=== PATIENT | male | born 1935 | race Two or more races ===

== ENCOUNTER 2022-07-15 10:53 | Emergency (ER) | payer OTHER ==
[~2022-07-15] VITALS: Ht 175.3 cm; Wt 77.0 kg
[2022-07-15] MEDS ORDERED: ASPirin 81 mg TAB PO ONE (11:30)
[2022-07-15 11:46] LABS: Basophils # (auto) 0 10 ^3/uL (0-0.2); Basophils % (auto) 0.8 % (0.0-2.0); Eosinophils # (auto) 0.2 10 ^3/uL (0-0.8); Eosinophils % (auto) 3.9 % (0.0-7.0); Hemoglobin 13.8 g/dL (13.5-17.5); Lymphocytes # (auto) 0.8 10 ^3/uL (0.4-5.4); Lymphocytes % (auto) 15.1 % (10.0-50.0); Mean Corpuscular Hgb Conc. 32.2 g/dL (32.0-36.0); Mean Corpuscular Volume 99.6 fL (80.0-100.0); Monocytes # (auto) 0.4 10 ^3/uL (0-1.3); Monocytes % (auto) 7.4 % (0.0-12.0); Neutrophils # (auto) 4.1 10 ^3/uL (1.6-8.6); Neutrophils % (auto) 72.8 % (37.0-80.0); Red Blood Cells 4.32 10^6/uL (4.5-5.90); White Blood Cell 5.6 10^3/uL (4.4-10.8)
[2022-07-15 11:57] LABS: Albumin 3.8 g/dL (3.4-5.0); BUN/Creatinine Ratio 16.6; Calcium 8.3 mg/dL (8.5-10.1)
[2022-07-15 12:00] LABS: Bilirubin, Total 0.7 mg/dL (0.2-1.0); Total Protein 6.3 g/dL (6.4-8.2)
[2022-07-15 12:13] LABS: INR 1.28 (0.9-1.15); Partial Thromboplastin Time 31.9 sec (24.6-33.4)
[2022-07-15] MEDS ORDERED: TRIA0.25 PO (16:00)
[2022-07-15 16:59] VITALS: BP 140/73
== END 2022-07-15 17:03 | disposition home or self-care (01) ==
LOC: ER 10:53 → EDBD 10:53 → ER 17:01
DX: R07.89 Other chest pain (principal); I48.91 Unspecified atrial fibrillation; G47.00 Insomnia, unspecified; I50.9 Heart failure, unspecified; Z90.49 Acquired absence of other specified parts of digestive tract; Z87.891 Personal history of nicotine dependence; Z79.899 Other long term (current) drug therapy; Z20.822 Contact with and (suspected) exposure to COVID-19
CPT/HCPCS: 36415; 71045; 80053; 83880; 84484; 85025; 85610; 85730; 87426; 93005

== ENCOUNTER 2023-05-08 07:29 | Emergency (ER) | payer OTHER ==
[~2023-05-08] VITALS: Ht 165.1 cm; Wt 59.0 kg
[~2023-05-08 07:29] MED LIST: TRIA0.25 PO
[2023-05-08 07:54] LABS: Basophils # (auto) 0 10 ^3/uL (0-0.2); Basophils % (auto) 0.5 % (0.0-2.0); Eosinophils # (auto) 0 10 ^3/uL (0-0.8); Eosinophils % (auto) 0.9 % (0.0-7.0); Hematocrit 43.6 % (41.0-53.0); Hemoglobin 14.3 g/dL (13.5-17.5); Lymphocytes # (auto) 0.8 10 ^3/uL (0.4-5.4); Lymphocytes % (auto) 18.9 % (10.0-50.0); Mean Corpuscular Hemoglobin 31.9 pg (28.0-32.0); Mean Corpuscular Hgb Conc. 32.7 g/dL (32.0-36.0); Mean Corpuscular Volume 97.3 fL (80.0-100.0); Monocytes # (auto) 0.3 10 ^3/uL (0-1.3); Monocytes % (auto) 8.2 % (0.0-12.0); Neutrophils % (auto) 71.5 % (37.0-80.0); Red Blood Cells 4.48 10^6/uL (4.5-5.90); Red Cell Distribution Width 13.5 % (11.8-14.3); White Blood Cell 4.1 10^3/uL (4.4-10.8)
[2023-05-08] MEDS ORDERED: cefTRIAXone 1GM/50ML D5W 50 ML IV ONE (08:00)
[2023-05-08] MEDS ORDERED: methylPREDNISolone SOD SUCC 125 MG/2 ML VL IV ONE (08:00)
[2023-05-08] MEDS ORDERED: AZITHROMYCIN 500MG/ 250ML 250 ML IV ONE (08:00)
[2023-05-08 08:01] VITALS: O2SAT 96
[2023-05-08] MEDS ORDERED: ALBUTEROL SULF 2.5 MG/0.5ML(0.5%) NEB SOLN NEB ONE (08:15)
[2023-05-08 09:24] LABS: Alanine Aminotransferase 18 U/L (7-40); Alkaline Phosphatase 57 U/L (46-116); Anion Gap 10 (5-15); Aspartate Aminotransferase 21 U/L (13-40); BUN/Creatinine Ratio 13.9 (10.0-20.0); Blood Urea Nitrogen 26 mg/dL (9-23); Calcium 9.2 mg/dL (8.5-10.1); Carbon Dioxide 23 mmol/L (20-30); Chloride 105 mmol/L (98-107); Glucose 103 mg/dL (74-106); Potassium 4.1 mmol/L (3.5-5.1); Sodium 138 mmol/L (136-145)
[2023-05-08 09:25] LABS: Bilirubin, Total 0.5 mg/dL (0.2-1.0); Total Protein 6.4 g/dL (5.7-8.2)
[2023-05-08 12:35] LABS: Urine Bacteria NONE SEEN /hpf (None Seen); Urine Blood Negative /uL (Negative); Urine Clarity Clear (Clear); Urine Color Yellow (Yellow); Urine Hyaline Cast FEW /lpf (0 - 2); Urine Protein, UAD Negative (Negative); Urine Specific Gravity 1.016 (1.001-1.035); Urine Urobilinogen Normal (Negative); Urine WBC 1 /hpf (0 - 3)
[2023-05-08 13:13] LABS: COVID19 ANTIGEN SOFIA FIA NEGATIVE (NEGATIVE); Rapid Influenza A Negative (Negative); Rapid Influenza B Negative (Negative)
[2023-05-08 15:33] VITALS: BP 159/87; PULSE 79; RESP 18; TEMP 98; O2SAT 94
== END 2023-05-08 15:58 | disposition short-term general hospital (02) ==
LOC: ER 07:29 → EDBD 07:29 → ER 15:58
DX: J18.9 Pneumonia, unspecified organism (principal); I50.9 Heart failure, unspecified; I48.91 Unspecified atrial fibrillation; Z87.891 Personal history of nicotine dependence; Z90.49 Acquired absence of other specified parts of digestive tract; Z20.822 Contact with and (suspected) exposure to COVID-19
CPT/HCPCS: 36415; 71045; 80053; 81001; 83605; 83880; 84484; 85025; 87040; 87426; 87804; 93005; 94640; 96365; 96366; 96368; 96375; 99291; J0456; J0696; J2930

== ENCOUNTER 2023-11-17 08:31 | Emergency (ER) | payer OTHER ==
[~2023-11-17] VITALS: Ht 170.2 cm; Wt 77.2 kg
[2023-11-17] MEDS: FUROSEMIDE 40 MG/4 ML VIAL IV ONE (09:37)
[2023-11-17] MEDS: methylPREDNISolone SOD SUCC 125 MG/2 ML VL IV ONE (09:37)
[2023-11-17] MEDS: levoFLOXacin 500MG 100 ML IV ONE (09:37)
[2023-11-17] MEDS: ALBUTEROL SULF 2.5 MG/0.5ML(0.5%) NEB SOLN HHN ONE (09:39)
[2023-11-17] MEDS: IPRATROPIUM BROM 0.5 MG/2.5ML INH SOL HHN ONE (09:40)
[2023-11-17 09:55] LABS: Basophils # (auto) 0 10 ^3/uL (0-0.2); Basophils % (auto) 0.7 % (0.0-2.0); Eosinophils # (auto) 0.1 10 ^3/uL (0-0.8); Eosinophils % (auto) 2.1 % (0.0-7.0); Hematocrit 36.1 % (41.0-53.0); Hemoglobin 11.9 g/dL (13.5-17.5); Lymphocytes # (auto) 1.1 10 ^3/uL (0.4-5.4); Lymphocytes % (auto) 19.7 % (10.0-50.0); Mean Corpuscular Hgb Conc. 32.9 g/dL (32.0-36.0); Mean Corpuscular Volume 100.5 fL (80.0-100.0); Monocytes # (auto) 0.5 10 ^3/uL (0-1.3); Monocytes % (auto) 8.4 % (0.0-12.0); Neutrophils % (auto) 69.1 % (37.0-80.0); Red Cell Distribution Width 14.8 % (11.8-14.3); White Blood Cell 5.7 10^3/uL (4.4-10.8)
[2023-11-17 10:04] LABS: Urine Bacteria None Seen /hpf (None Seen)
[2023-11-17 10:05] LABS: Chloride 104 mmol/L (98-107); Potassium 4.9 mmol/L (3.5-5.1); Sodium 136 mmol/L (136-145)
[2023-11-17 10:06] LABS: Anion Gap 1 (5-15); Calcium 9.4 mg/dL (8.5-10.1); Carbon Dioxide 31 mmol/L (20-30)
[2023-11-17 10:07] VITALS: PULSE 109; O2SAT 95
[2023-11-17 10:11] LABS: BUN/Creatinine Ratio 17.7 (10.0-20.0); Blood Urea Nitrogen 26 mg/dL (9-23); Glucose 96 mg/dL (74-106)
[2023-11-17 10:26] LABS: Urine Blood Negative /uL (Negative); Urine Clarity Clear (Clear); Urine Color Light-Yellow (Yellow); Urine Protein, UAD Negative (Negative); Urine Specific Gravity 1.009 (1.001-1.035); Urine Urobilinogen Normal (Negative); Urine WBC <1 /hpf (0 - 3)
[2023-11-17] MEDS: ONDANSETRON HCL 4 MG/2 ML VIAL IV ONE (15:28)
[2023-11-17] MEDS: ONDANSETRON HCL 4 MG/2 ML VIAL ONE (15:29)
[2023-11-17 16:32] VITALS: BP 117/73; PULSE 105; RESP 16; TEMP 98; O2SAT 100
== END 2023-11-17 16:29 | disposition short-term general hospital (02) ==
LOC: EDBD 08:31 → ER 08:31 → EDUNIT# 08:31 → ER 16:29
DX: J44.1 Chronic obstructive pulmonary disease with (acute) exacerbation (principal); J96.00 Acute respiratory failure, unspecified whether with hypoxia or hypercapnia; I48.91 Unspecified atrial fibrillation; I50.9 Heart failure, unspecified; Z98.890 Other specified postprocedural states; Z87.891 Personal history of nicotine dependence
CPT/HCPCS: 36415; 71045; 80048; 81001; 83605; 83880; 85025; 87040; 93005; 94644; 96365; 96366; 96375; 99291; J1940; J1956; J2405; J2919; J7644

== ENCOUNTER 2024-02-10 07:33 | Emergency (ER) | payer OTHER ==
[~2024-02-10] VITALS: Ht 162.6 cm; Wt 70.0 kg
[2024-02-10 09:27] LABS: Basophils # (auto) 0.1 10 ^3/uL (0-0.2); Basophils % (auto) 1.1 % (0.0-2.0); Eosinophils # (auto) 0.3 10 ^3/uL (0-0.8); Eosinophils % (auto) 4.6 % (0.0-7.0); Hematocrit 43.2 % (41.0-53.0); Hemoglobin 14.3 g/dL (13.5-17.5); Lymphocytes # (auto) 1.4 10 ^3/uL (0.4-5.4); Lymphocytes % (auto) 20.6 % (10.0-50.0); Mean Corpuscular Hemoglobin 31.9 pg (28.0-32.0); Mean Corpuscular Hgb Conc. 33.2 g/dL (32.0-36.0); Mean Corpuscular Volume 96.1 fL (80.0-100.0); Monocytes # (auto) 0.5 10 ^3/uL (0-1.3); Neutrophils # (auto) 4.4 10 ^3/uL (1.6-8.6); Neutrophils % (auto) 65.7 % (37.0-80.0); Platelet Count (auto) 186 10^3/uL (140-450); Red Blood Cells 4.49 10^6/uL (4.5-5.90); Red Cell Distribution Width 14.9 % (11.8-14.3); White Blood Cell 6.6 10^3/uL (4.4-10.8)
[2024-02-10 09:33] LABS: Chloride 101 mmol/L (98-107); Potassium 5.5 mmol/L (3.5-5.1); Sodium 133 mmol/L (136-145)
[2024-02-10 09:34] LABS: Anion Gap 3 (5-15); Calcium 9.4 mg/dL (8.7-10.4); Carbon Dioxide 29 mmol/L (20-30)
[2024-02-10 09:39] LABS: BUN/Creatinine Ratio 13.7 (10.0-20.0); Blood Urea Nitrogen 23 mg/dL (9-23); Glucose 96 mg/dL (74-106)
[2024-02-10] MEDS: SODIUM CHLORIDE 0.9% 500 ML IV ONE (10:15)
[2024-02-10] MEDS: ALBUTEROL SULF 2.5 MG/0.5ML(0.5%) NEB SOLN NEB ONE (10:31)
[2024-02-10 10:40] VITALS: PULSE 107; RESP 93; O2SAT 93
[2024-02-10] MEDS: DEXTROSE (50%) 50ML SYRG IV ONE (11:00)
[2024-02-10] MEDS: SODIUM ZIRCONIUM CYCL 10 GM PAK PO ONE (11:00)
[2024-02-10] MEDS: FUROSEMIDE 20 MG/2 ML VIAL IV ONE (11:01)
[2024-02-10] MEDS: InsuLIN REG 1unit/0.01ml Soln (100units/ml) IV ONE (11:03)
[2024-02-10 15:25] VITALS: BP 126/51; PULSE 68; RESP 17; TEMP 97.9; O2SAT 92
== END 2024-02-10 14:57 | disposition home or self-care (01) ==
LOC: EDUNIT# 07:33 → ER 07:33 → EDBD 07:33 → ER 14:57
DX: J44.1 Chronic obstructive pulmonary disease with (acute) exacerbation (principal); E87.5 Hyperkalemia; N17.9 Acute kidney failure, unspecified; J44.9 Chronic obstructive pulmonary disease, unspecified; Z87.891 Personal history of nicotine dependence
CPT/HCPCS: 36415; 71046; 80048; 83880; 84132; 85025; 93005; 94640; 96361; 96374; 96375; 99285; J1815; J1940; J7030; J7042

== ENCOUNTER 2024-05-12 05:53 | Emergency (ER) | payer OTHER ==
[~2024-05-12] VITALS: Ht 167.6 cm; Wt 65.0 kg
[2024-05-12 07:17] LABS: Basophils # (auto) 0 10 ^3/uL (0-0.2); Basophils % (auto) 0.7 % (0.0-2.0); Eosinophils # (auto) 0.1 10 ^3/uL (0-0.8); Eosinophils % (auto) 2.2 % (0.0-7.0); Hematocrit 34.1 % (41.0-53.0); Hemoglobin 11.4 g/dL (13.5-17.5); Lymphocytes # (auto) 0.7 10 ^3/uL (0.4-5.4); Lymphocytes % (auto) 14.2 % (10.0-50.0); Mean Corpuscular Hemoglobin 32.2 pg (28.0-32.0); Mean Corpuscular Hgb Conc. 33.5 g/dL (32.0-36.0); Mean Corpuscular Volume 96.3 fL (80.0-100.0); Monocytes # (auto) 0.6 10 ^3/uL (0-1.3); Neutrophils # (auto) 3.3 10 ^3/uL (1.6-8.6); Neutrophils % (auto) 69.9 % (37.0-80.0); Nucleated Red Blood Cells % 0.1 %; Platelet Count (auto) 227 10^3/uL (140-450); Red Blood Cells 3.54 10^6/uL (4.5-5.90); Red Cell Distribution Width 16.6 % (11.8-14.3); White Blood Cell 4.6 10^3/uL (4.4-10.8)
--- NOTE | 2024-05-12 07:28 | ED.PDOC ---
History of Present Illness HPI Comments 88M BIBA w/ no prior Hx associated to the c/c of gen joshua. Pt reports on having SOB, CP, LE edema, Chills, a cold and cough w/ phlegm which started 2 weeks ago. Pt was using O2 in the hospital but states that he does not have any O2 at home. PMHx of AFIB, CHF, COPD, and Thyroid. SHx of Appendectomy and Knee Replacement. Denies Fever, N/V/D, ABD pain or other associated symptoms, modifiers, or recent injuries at this time. Chief Complaint: General Weakness Time Seen by MD: 06:45 Primary Care Provider: SILVA Reviewed Notes: Nurses Notes, Underwriting Assistant Notes, Medications, Allergies Allergies: Coded Allergies: NO KNOWN ALLERGIES (Unverified , 05/08/23) Home Meds Active Scripts Triazolam (Halcion) 0.25 Mg Tab, 1 TAB PO QPM, #30 TAB Prov:RITO WATTERS MD 07/15/22 Information Source: Patient Mode of Arrival: EMS Severity: Moderate Timing: Weeks (2) Duration: Since onset Prehospital treatment: None Past Medical History PAST MEDICAL HISTORY: AFIB, CHF, COPD, Thyroid Surgical History: Appendectomy Surgical History (Other): Knee Replacement(unknown which knee) Family History Family History: Reviewed,noncontributory to illness, Unknown Social History Smoker: Non-Smoker Alcohol: Denies ETOH Use Drugs: Denies Drug Use Lives In: Home Constitutional: reports: chills, weakness; denies: diaphoresis, fatigue, fever, malaise, sweats, others EENTM: denies: blurred vision, double vision, ear bleeding, ear discharge, ear drainage, ear pain, ear ringing, eye pain, eye redness, hearing loss, mouth pain, mouth swelling, nasal discharge, nose bleeding, nose congestion, nose pain, photophobia, tearing, throat pain, throat swelling, voice changes, others Respiratory: reports: shortness of breath; denies: cough, hemoptysis, orthopnea, SOB at rest, SOB with excertion, stridor, wheezing, others Cardiovascular: reports: chest pain, edema; denies: dizzy spells, diaphoresis, Dyspnea on exertion, irregular heart beat, left arm pain, lightheadedness, palpitations, PND, syncope, others Gastrointestinal: denies: abdomen distended, abdominal pain, blood streaked bowels, constipated, diarrhea, dysphagia, difficulty swallowing, hematemesis, melena, nausea, poor appetite, poor fluid intake, rectal bleeding, rectal pain, vomiting, others Genitourinary: denies: burning, dysuria, flank pain, frequency, hematuria, incontinence, penile discharge, penile sore, pain, testicle pain, testicle swelling, urgency, others Neurological: denies: dizziness, fainting, headache, left sided numbness, left sided weakness, numbness, paresthesia, pre-existing deficit, right sided numbness, right sided weakness, seizure, speech problems, tingling, tremors, weakness, others Musculoskeletal: denies: back pain, gout, joint pain, joint swelling, muscle pain, muscle stiffness, neck pain, others Integumetry: denies: bruises, change in color, change in hair/nails, dryness, laceration, lesions, lumps, rash, wounds, others Allergic/Immunocompromised: denies: Difficulty Healing, Frequent Infections, Hives, Itching, others Hematologic/Lymphatic: denies: anemia, blood clots, easy bleeding, easy bruising, swollen glands, others Endocrine: denies: excessive hunger, excessive sweating, excessive thirst, excessive urination, flushing, intolerance to cold, intolerance to heat, unexplained weight gain, unexplained weight loss, others Psychiatric: denies: anxiety, bipolar disorder, depression, hopeless, panic disorder, schizophrenia, sleepless, suicidal, others All Other Systems: Reviewed and Negative Physical Exam General Appearance: Mild Distress, Normal HEENT: Other (Pupils symmetric, dry mucous membranes) Neck: Full Range of Motion, Normal Inspection Respiratory: Accessory Muscle Use, Rales, Respiratory Distress, Rhonchi Cardiovascular: No JVD, Regular Rate/Rhythm Breast Exam: Deferred Gastrointestinal: Non Tender, Soft Genitalia: Deferred Pelvic: Deferred Rectal: Deferred Extremities: Normal inspection, Normal range of motion, Non-tender, Pedal edema Musculoskeletal : Apperance: Normal Neurologic: Alert (Oriented x4), Normal Affect, No Sensory Deficits, Other (Ambulatory without difficulty. No gross focal deficit.) Cerebellar Function: NOT DONE Reflexes: NOT DONE Skin: Dry, Normal Color, Warm Lymphatic: NOT DONE Was a procedure done? Was a procedure done?: No EKG EKG : Comments AFib, rate 87, normal QRS interval, QTC 490, normal axis, possible old inferior or anteroseptal infarct, nonspecific T change. Differential Dx Considerations may include: CHF exacerbation, COPD exacerbation, pneumonia, bronchitis, viral syndrome, ACS, MA, among others X-Ray, Labs, Meds, VS Vital Signs Date Time Temp Pulse Resp B/P (MAP) Pulse Ox O2 Delivery O2 Flow Rate FiO2 05/12/24 08:55 97.6 72 14 122/58 (79) 99 97.6 05/12/24 08:55 72 14 99 Nasal Cannula* 2 28 05/12/24 08:32 122/49 05/12/24 07:42 17 97 Nasal Cannula* 3 32 05/12/24 06:18 98.8 86 22 114/64 (81) 99 05/12/24 05:58 87 Lab Test 05/12/24 09:42 05/12/24 09:09 05/12/24 07:38 05/12/24 06:46 Range/Units Influenza Type A Antigen Pending Influenza Type B Antigen Pending SARS-CoV-2 Antigen (Rapid) Pending Lactic Acid Level 1.1 1.0 0.4-2.0 mmol/L Troponin I High Sensitivity 38 39 38 </=54 ng/L White Blood Count 4.6 4.4-10.8 10^3/uL Red Blood Count 3.54 L 4.5-5.90 10^6/uL Hemoglobin 11.4 L 13.5-17.5 g/dL Hematocrit 34.1 L 41.0-53.0 % Mean Corpuscular Volume 96.3 80.0-100.0 fL Mean Corpuscular Hemoglobin 32.2 H 28.0-32.0 pg Mean Corpuscular Hemoglobin Concent 33.5 32.0-36.0 g/dL Red Cell Distribution Width 16.6 H 11.8-14.3 % Platelet Count 227 140-450 10^3/uL Mean Platelet Volume 7.7 6.9-10.8 fL Neutrophils (%) (Auto) 69.9 37.0-80.0 % Lymphocytes (%) (Auto) 14.2 10.0-50.0 % Monocytes (%) (Auto) 13.0 H 0.0-12.0 % Eosinophils (%) (Auto) 2.2 0.0-7.0 % Basophils (%) (Auto) 0.7 0.0-2.0 % Neutrophils # (Auto) 3.3 1.6-8.6 10 ^3/uL Lymphocytes # (Auto) 0.7 0.4-5.4 10 ^3/uL Monocytes # (Auto) 0.6 0-1.3 10 ^3/uL Eosinophils # (Auto) 0.1 0-0.8 10 ^3/uL Basophils # (Auto) 0 0-0.2 10 ^3/uL Nucleated Red Blood Cells 0.1 % Sodium Level 136 136-145 mmol/L Potassium Level 4.2 3.5-5.1 mmol/L Chloride Level 103 98-107 mmol/L Carbon Dioxide Level 25 20-31 mmol/L Anion Gap 8 5-15 Blood Urea Nitrogen 34 H 9-23 mg/dL Creatinine 1.66 H 0.700-1.30 mg/dL Glomerular Filtration Rate Calc 40 >90 mL/min BUN/Creatinine Ratio 20.5 H 10.0-20.0 Serum Glucose 98 74-106 mg/dL Calcium Level 9.2 8.7-10.4 mg/dL Total Bilirubin 0.5 0.2-1.0 mg/dL Aspartate Amino Transferase (AST) 13 13-40 U/L Alanine Aminotransferase (ALT) 12 7-40 U/L Alkaline Phosphatase 59 46-116 U/L B-Type Natriuretic Peptide 158.22 0-100 pg/mL Total Protein 6.0 5.7-8.2 g/dL Albumin 3.7 3.2-4.8 g/dL Current Medications Medications (Trade) Dose Ordered Sig/Kalpana Route Start Time Stop Time Status Last Admin Aspirin 325 mg ONCE ONCE PO 05/12/24 07:00 05/12/24 07:01 DC 05/12/24 08:32 Furosemide (Lasix Injection) 40 mg ONCE ONCE IV 05/12/24 07:00 05/12/24 07:01 DC 05/12/24 08:32 Acetaminophen/ Hydrocodone Bitart ([place] 5/325MG Tab) 2 tab ONCE ONCE PO 05/12/24 07:00 05/12/24 07:01 DC 05/12/24 08:33 Ipratropium Manning (Atrovent Medneb) 0.5 mg ONCE ONCE NEB 05/12/24 07:00 05/12/24 07:01 DC 05/12/24 07:42 Ceftriaxone Sodium 50 ml @ 100 mls/hr ONCE ONCE IV 05/12/24 07:00 05/12/24 07:29 DC 05/12/24 08:31 Azithromycin 250 ml @ 125 mls/hr ONCE ONCE IV 05/12/24 07:00 05/12/24 08:59 DC 05/12/24 09:29 Methylprednisolone Sodium Succinate (Solu Medrol) 125 mg ONCE ONCE IV 05/12/24 08:30 05/12/24 08:31 DC 05/12/24 08:47 PROCEDURE(s): CXRP - CHEST PORTABLE REASON: gen weak ORDER NUMBER(s): [id number], ACCESSION NUMBER(s): [id number] CHEST RADIOGRAPH Indication: Generalized weakness Technique: Single frontal view of the chest was obtained Comparison: XY CHEST PORTABLE on DOS: 11/17/23, XY CHEST PORTABLE on DOS: 05/08/23, CHEST PORTABLE on DOS: 07/15/22 IMPRESSION: There are low lung volumes with subsegmental atelectasis in the lung bases. Elevation of the left hemidiaphragm is stable. Cardiomediastinal silhouette is stable. No sizable effusion or pneumothorax. X-Ray, Labs, Meds, VS Comment 88-year-old male with a history of AFib, CHF, COPD complaining of cough, pleuritic chest pain, shortness of breath, malaise for the past 2 weeks. Vitals remarkable for oxygen saturation 90% on room air, respiratory rate 22 Exam remarkable for scattered rhonchi, rales at both bases, mild respiratory distress and accessory muscle use Rhythm strip independently interpreted by me: AFib, rate 87, no PVCs. Chest x-ray: IMPRESSION: There are low lung volumes with subsegmental atelectasis in the lung bases. Elevation of the left hemidiaphragm is stable. Cardiomediastinal silhouette is stable. No sizable effusion or pneumothorax. CBC unremarkable, basic metabolic panel remarkable for BUN 34, creatinine 1.66 Lactate normal, BNP 158.22, troponin negative Influenza and COVID pending Patient treated with the following in the ED: Albuterol 5 mg/Atrovent 0.5 mg nebulized, Solu-Medrol 125 mg IV, Rocephin 1 g IV, Zithromax 500 mg IV, [place] 5/325 mg 2 tabs p.o., Lasix 40 mg IV, Nitro-Bid 1/2 inch to chest wall On re-evaluation at 9:50 a.m., patient states chest pain has improved. Oxygen saturation is 92-93% on room air, 95 or above on 2 L nasal cannula. Plan is to admit or transfer the patient for ongoing respiratory support as needed. Case discussed with [facility], who will arrange for transfer. Authorization [id number] Time of 1ST Reevaluation: 07:15 Reevaluation 1ST: Unchanged Patient Education/Counseling: Diagnosis, Treatment, Prognosis Family Education/Counseling: No Family Present Additional Information I reviewed the following notes from the pt's past medical encounters: 02/10/24 The following tests were ordered, and results were reviewed by me: labs, EKGS, xrays, PHA I reviewed and agreed with the following test results read by other providers: xray I discussed treatments and results with medical personnel and: (consultants, fam, etc) Departure 1 Departure Time of Disposition: 09:51 Impression: Primary Impression: COPD exacerbation Additional Impression: Pneumonia Qualified Codes: J18.9 - Pneumonia, unspecified organism Disposition: 02 SHORT TERM HOSPITAL Admit to: Tele Condition: Guarded Critical Care Note Critical Care Time?: No Stability Stability form required: No Heart Score Heart Score: Heart Score Response (Comments) Value History Moderate Suspicious 1 EKG Repolarization Disturb 1 Age >65 2 Risk Factors >3 or Hx ASHD 2 Troponin Normal limit 0 Total 6 I personally scribed for KATIE LAKE MD ([email or web address]) on 05/12/24 at 07:28. Electronically submitted by Sim Vela ([email or web address]). KATIE LAKE MD May 12, 2024 07:28
--- NOTE | 2024-05-12 07:33 | DVH ---
CHEST RADIOGRAPH Indication: Generalized weakness Technique: Single frontal view of the chest was obtained Comparison: XY CHEST PORTABLE on DOS: 11/17/23, XY CHEST PORTABLE on DOS: 05/08/23, CHEST PORTABLE on DOS: 07/15/22 IMPRESSION: There are low lung volumes with subsegmental atelectasis in the lung bases. Elevation of the left he midiaphragm is stable. Cardiomediastinal silhouette is stable. No sizable effusion or pneumothorax.
[2024-05-12 07:35] LABS: Alanine Aminotransferase 12 U/L (7-40); Albumin 3.7 g/dL (3.2-4.8); Alkaline Phosphatase 59 U/L (46-116); Anion Gap 8 (5-15); BUN/Creatinine Ratio 20.5 (10.0-20.0); Calcium 9.2 mg/dL (8.7-10.4); Carbon Dioxide 25 mmol/L (20-31); Chloride 103 mmol/L (98-107); Glucose 98 mg/dL (74-106); Potassium 4.2 mmol/L (3.5-5.1)
[2024-05-12 07:36] LABS: Bilirubin, Total 0.5 mg/dL (0.2-1.0)
[2024-05-12 07:41] LABS: Aspartate Aminotransferase 13 U/L (13-40); Blood Urea Nitrogen 34 mg/dL (9-23); Sodium 136 mmol/L (136-145)
[2024-05-12] MEDS: IPRATROPIUM BROM 0.5 MG/2.5ML INH SOL NEB ONE (07:42)
[2024-05-12] MEDS: cefTRIAXone 1GM/50ML D5W 50 ML IV ONE (08:31)
[2024-05-12] MEDS: ASPirin 325 MG TAB PO ONE (08:32)
[2024-05-12] MEDS: FUROSEMIDE 40 MG/4 ML VIAL IV ONE (08:32)
[2024-05-12] MEDS: NITROGLYCERIN 2% OINT 1GM PKG TD ONE (08:33)
[2024-05-12] MEDS: HYDROcodone-ACET 5/325MG TAB PO ONE (08:33)
[2024-05-12] MEDS: methylPREDNISolone SOD SUCC 125 MG/2 ML VL IV ONE (08:47)
[2024-05-12 08:55] VITALS: PULSE 72; RESP 14; O2SAT 99
[2024-05-12] MEDS: AZITHROMYCIN 500MG/ 250ML 250 ML IV ONE (09:29)
[2024-05-12 10:44] LABS: COVID19 ANTIGEN SOFIA FIA NEGATIVE (NEGATIVE); Rapid Influenza A Negative (Negative); Rapid Influenza B Negative (Negative)
[2024-05-12] MEDS: ALBUTEROL SULF 2.5 MG/0.5ML(0.5%) NEB SOLN NEB SCH (11:07)
[2024-05-12 14:07] VITALS: BP 127/63; PULSE 83; RESP 18; TEMP 98.4; O2SAT 98
--- NOTE | 2024-05-14 11:29 | ECG ---
[facility] Test Date: 2024-05-12 Test Time: 05:58:47 Pat Name: MAURO CASTILLO Department: ED Room: Gender: M Traffic Attendant: ERON : 1935 Requested By: KATIE RODRIGUEZ Order Number: [id number] Reading MD: Seth Slaughter Measurements Intervals [place] Rate: 87 P: 0 TX: 0 QRS: 51 QRSD: 110 T: -34 QT: 407 QTc: 490 Interpretive Statements Atrial fibrillation Abnormal T, consider ischemia, inferior leads Baseline wander in lead(s) I,III,aVL Electronically Signed On 05-18-2024 9:51:16 PST by Seth Slaughter Please click the below link to view image of tracing.
== END 2024-05-12 10:31 | disposition short-term general hospital (02) ==
LOC: ER 05:53 → EDBD 05:53 → EDSEX 05:53 → ER 10:31
DX: J44.1 Chronic obstructive pulmonary disease with (acute) exacerbation (principal); J18.9 Pneumonia, unspecified organism; I50.9 Heart failure, unspecified; Z90.49 Acquired absence of other specified parts of digestive tract; Z96.659 Presence of unspecified artificial knee joint; Z20.822 Contact with and (suspected) exposure to COVID-19
CPT/HCPCS: 36415; 71045; 80053; 83605; 83880; 84484; 85025; 87040; 87077; 87186; 87426; 87804; 93005; 94640; 96365; 96366; 96367; 96375; 99285; J0456; J0696; J1940; J2919

== ENCOUNTER 2024-06-28 16:45 | Emergency (ER) | payer OTHER ==
[~2024-06-28] VITALS: Ht 172.7 cm; Wt 75.0 kg
--- NOTE | 2024-06-28 16:52 | ED.PDOC ---
History of Present Illness HPI Comments 89-year-old male brought in by EMS presents with a chief complaint of SOB, cough, and A-Fib. Patient states that he had sudden onset of SOB and checked his pulse ox. Patient reports that he then saw that his pulse rate was really high and decided to call 911. Per EMS, patient was found to be in A-Fib after they did an 12-lead. Patient denies any active chest pain at this time. Chief Complaint: Shortness of Breath Time Seen by MD: 16:46 Primary Care Provider: SILVA Mcdaniel Notes: Nurses Notes, Technical Planner Notes, Medications, Allergies Allergies: Coded Allergies: NO KNOWN ALLERGIES (Unverified , 05/08/23) Home Meds Active Scripts Triazolam (Halcion) 0.25 Mg Tab, 1 TAB PO QPM, #30 TAB Prov:RITO WATTERS MD 07/15/22 Information Source: Patient, Emergency Med Personnel Mode of Arrival: Ambulatory Severity: Moderate Timing: Minutes Duration: Since onset Prehospital treatment: Oxygen Past Medical History PAST MEDICAL HISTORY: AFIB, CHF, COPD, Thyroid Surgical History: Appendectomy Family History Family History: Reviewed,noncontributory to illness, Unknown Social History Smoker: Non-Smoker Alcohol: Denies ETOH Use Drugs: Denies Drug Use Lives In: Home Constitutional: denies: chills, diaphoresis, fatigue, fever, malaise, sweats, weakness, others EENTM: denies: blurred vision, double vision, ear bleeding, ear discharge, ear drainage, ear pain, ear ringing, eye pain, eye redness, hearing loss, mouth pain, mouth swelling, nasal discharge, nose bleeding, nose congestion, nose pain, photophobia, tearing, throat pain, throat swelling, voice changes, others Respiratory: reports: cough, shortness of breath; denies: hemoptysis, orthopnea, SOB at rest, SOB with excertion, stridor, wheezing, others Cardiovascular: denies: chest pain, dizzy spells, diaphoresis, Dyspnea on exertion, edema, irregular heart beat, left arm pain, lightheadedness, palpitations, PND, syncope, others Gastrointestinal: denies: abdomen distended, abdominal pain, blood streaked bowels, constipated, diarrhea, dysphagia, difficulty swallowing, hematemesis, melena, nausea, poor appetite, poor fluid intake, rectal bleeding, rectal pain, vomiting, others Genitourinary: denies: burning, dysuria, flank pain, frequency, hematuria, incontinence, penile discharge, penile sore, pain, testicle pain, testicle swelling, urgency, others Neurological: denies: dizziness, fainting, headache, left sided numbness, left sided weakness, numbness, paresthesia, pre-existing deficit, right sided numbness, right sided weakness, seizure, speech problems, tingling, tremors, weakness, others Musculoskeletal: denies: back pain, gout, joint pain, joint swelling, muscle pain, muscle stiffness, neck pain, others Integumetry: denies: bruises, change in color, change in hair/nails, dryness, laceration, lesions, lumps, rash, wounds, others Allergic/Immunocompromised: denies: Difficulty Healing, Frequent Infections, Hives, Itching, others Hematologic/Lymphatic: denies: anemia, blood clots, easy bleeding, easy bruising, swollen glands, others Endocrine: denies: excessive hunger, excessive sweating, excessive thirst, excessive urination, flushing, intolerance to cold, intolerance to heat, unexplained weight gain, unexplained weight loss, others Psychiatric: denies: anxiety, bipolar disorder, depression, hopeless, panic disorder, schizophrenia, sleepless, suicidal, others All Other Systems: Reviewed and Negative Physical Exam General Appearance: Moderate Distress HEENT: Normal ENT Inspection, Pharynx Normal, TMs Normal Neck: Full Range of Motion, Non-Tender, Normal, Normal Inspection Respiratory: Chest Non-Tender, Decreased Breath Sounds, No Accessory Muscle Use, Respiratory Distress, Wheezing Cardiovascular: No Edema, No JVD, No Murmur, No Gallop, Normal Peripheral Pulses, Regular Rate/Rhythm Breast Exam: Deferred Gastrointestinal: No Organomegaly, Non Tender, No Pulsatile Mass, Normal Bowel Sounds, Soft Genitalia: Deferred Pelvic: Deferred Rectal: Deferred Extremities: No calf tenderness, Normal capillary refill, Normal inspection, Normal range of motion, Non-tender, No pedal edema Musculoskeletal : Apperance: Normal Neurologic: Alert, mounted police II-XII nml as Tested, No Motor Deficits, Normal Affect, Normal Mood, No Sensory Deficits Cerebellar Function: Normal Reflexes: Normal Skin: Dry, Normal Color, Warm Lymphatic: No Adenopathy Was a procedure done? Was a procedure done?: No EKG EKG : Pulse Rate (adult): 123 [place]: Normal Cardiac Rhythm: ST Block: None Hypertrophy: LAE ST: Normal Differential Dx Considerations may include: COPD exacerbation, CHF, atrial fibrillation with rapid response X-Ray, Labs, Meds, VS Vital Signs Date Time Temp Pulse Resp B/P (MAP) Pulse Ox O2 Delivery O2 Flow Rate FiO2 06/28/24 18:36 84 18 97 Room Air* 0 21 06/28/24 18:22 98.9 101 18 115/61 (79) 98 98.9 06/28/24 17:00 20 97 Nasal Cannula* 2 28 06/28/24 16:55 99.1 120 20 119/80 (93) 97 06/28/24 16:52 123 06/28/24 16:49 123 Lab Test 06/28/24 18:44 06/28/24 18:21 06/28/24 17:10 Range/Units Troponin I High Sensitivity Pending 54 </=54 ng/L Influenza Type A Antigen Negative Negative Influenza Type B Antigen Negative Negative SARS-CoV-2 Antigen (Rapid) Negative NEGATIVE White Blood Count 6.6 4.4-10.8 10^3/uL Red Blood Count 3.66 L 4.5-5.90 10^6/uL Hemoglobin 11.4 L 13.5-17.5 g/dL Hematocrit 35.4 L 41.0-53.0 % Mean Corpuscular Volume 96.7 80.0-100.0 fL Mean Corpuscular Hemoglobin 31.2 28.0-32.0 pg Mean Corpuscular Hemoglobin Concent 32.3 32.0-36.0 g/dL Red Cell Distribution Width 18.0 H 11.8-14.3 % Platelet Count 104 L 140-450 10^3/uL Mean Platelet Volume 8.2 6.9-10.8 fL Neutrophils (%) (Auto) 82.0 H 37.0-80.0 % Lymphocytes (%) (Auto) 8.1 L 10.0-50.0 % Monocytes (%) (Auto) 8.9 0.0-12.0 % Eosinophils (%) (Auto) 0.4 0.0-7.0 % Basophils (%) (Auto) 0.6 0.0-2.0 % Neutrophils # (Auto) 5.4 1.6-8.6 10 ^3/uL Lymphocytes # (Auto) 0.5 0.4-5.4 10 ^3/uL Monocytes # (Auto) 0.6 0-1.3 10 ^3/uL Eosinophils # (Auto) 0 0-0.8 10 ^3/uL Basophils # (Auto) 0 0-0.2 10 ^3/uL Nucleated Red Blood Cells 0.0 % D-Dimer, Quantitative 0.89 H 0.0-0.49 mg/L FEU Sodium Level 136 136-145 mmol/L Potassium Level 5.3 H 3.5-5.1 mmol/L Chloride Level 105 98-107 mmol/L Carbon Dioxide Level 26 20-31 mmol/L Anion Gap 5 5-15 Blood Urea Nitrogen 32 H 9-23 mg/dL Creatinine 1.65 H 0.700-1.30 mg/dL Glomerular Filtration Rate Calc 40 >90 mL/min BUN/Creatinine Ratio 19.4 10.0-20.0 Serum Glucose 95 74-106 mg/dL Calcium Level 8.2 L 8.7-10.4 mg/dL B-Type Natriuretic Peptide 277.69 0-100 pg/mL Current Medications Medications (Trade) Dose Ordered Sig/Kalpana Route Start Time Stop Time Status Last Admin Methylprednisolone Sodium Succinate (Solu Medrol) 125 mg ONCE ONCE IV 06/28/24 17:00 06/28/24 17:01 DC 06/28/24 18:39 IV Hep-Lock was established CBC is within normal limits The D-dimer is nine The chemistry panel shows hyperkalemia at 5.3 The BUN is elevated at 32 and the creatinine is 1.65 The BNP is 277.69 The chest x-ray shows no sign of infiltrate At this time, the patient remains somewhat hypoxic and is requiring 2 L of oxygen nasal cannula We are contacting [place] at this time They gave us authorization for ER but they are going to transfer the patient. The authorization #[id number] Images Reviewed?: Images reviewed and evaluated by me Time of 1ST Reevaluation: 17:16 Reevaluation 1ST: Unchanged Patient Education/Counseling: Diagnosis, Treatment, Prognosis Family Education/Counseling: Diagnosis, Treatment, Prognosis Departure 1 Departure Time of Disposition: 18:15 Impression: Primary Impression: Acute respiratory failure Qualified Codes: J96.01 - Acute respiratory failure with hypoxia Additional Impressions: Acute renal failure Qualified Codes: N17.1 - Acute kidney failure with acute cortical necrosis Hyperkalemia COPD exacerbation Disposition: 51 HOSPICE/MEDICAL FACILITY Admit to: Tele Condition: Fair Critical Care Note Critical Care Time?: Yes (45 min-critical care time only) Stability Stability form required: Yes Stable for transfer: Intended for transfer (Health plan request transfer), To designated facility Heart Score Heart Score: Heart Score Response (Comments) Value History Slightly Suspicious 0 EKG Normal 0 Age >65 2 Risk Factors >3 or Hx ASHD 2 Troponin Normal limit 0 Total 4 I personally scribed for RITO WATTERS MD ([email or web address]) on 06/28/24 at 16:52. Electronically submitted by Moses Brush ([email or web address]). RITO WATTERS MD Jun 28, 2024 16:52
[2024-06-28 17:23] LABS: Basophils # (auto) 0 10 ^3/uL (0-0.2); Basophils % (auto) 0.6 % (0.0-2.0); Eosinophils # (auto) 0 10 ^3/uL (0-0.8); Eosinophils % (auto) 0.4 % (0.0-7.0); Hematocrit 35.4 % (41.0-53.0); Hemoglobin 11.4 g/dL (13.5-17.5); Lymphocytes # (auto) 0.5 10 ^3/uL (0.4-5.4); Lymphocytes % (auto) 8.1 % (10.0-50.0); Mean Corpuscular Hemoglobin 31.2 pg (28.0-32.0); Mean Corpuscular Hgb Conc. 32.3 g/dL (32.0-36.0); Mean Corpuscular Volume 96.7 fL (80.0-100.0); Monocytes # (auto) 0.6 10 ^3/uL (0-1.3); Monocytes % (auto) 8.9 % (0.0-12.0); Neutrophils # (auto) 5.4 10 ^3/uL (1.6-8.6); Platelet Count (auto) 104 10^3/uL (140-450); Red Blood Cells 3.66 10^6/uL (4.5-5.90); White Blood Cell 6.6 10^3/uL (4.4-10.8)
--- NOTE | 2024-06-28 17:24 | DVH ---
EXAM: XY CHEST PORTABLE CLINICAL HISTORY: sob TECHNIQUE: Single AP view of the chest WID: COMPARISON: XY CHEST PORTABLE on DOS: 05/12/24 FINDINGS: Lines and tubes: None Chest: The heart size and pulmonary vasculature is within normal limits. Calcified plaque projects over the aortic arch. No pleural effusion, pneumothorax, or consolidation. Linear subsegmental atelectasis or scarring in t he bilateral lung bases. Unchanged elevation of the left hemidiaphragm. The osseous structures are grossly intact. IMPRESSION: No acute cardiopulmonary abnormality.
[2024-06-28 17:30] LABS: Chloride 105 mmol/L (98-107); Sodium 136 mmol/L (136-145)
[2024-06-28 17:31] LABS: Anion Gap 5 (5-15); Carbon Dioxide 26 mmol/L (20-31)
[2024-06-28 17:36] LABS: BUN/Creatinine Ratio 19.4 (10.0-20.0); Glucose 95 mg/dL (74-106)
[2024-06-28 17:52] LABS: Blood Urea Nitrogen 32 mg/dL (9-23); Calcium 8.2 mg/dL (8.7-10.4); Potassium 5.3 mmol/L (3.5-5.1)
[2024-06-28 18:36] VITALS: PULSE 84; RESP 18; O2SAT 97
[2024-06-28 18:38] LABS: COVID19 ANTIGEN SOFIA FIA NEGATIVE (NEGATIVE); Rapid Influenza A Negative (Negative); Rapid Influenza B Negative (Negative)
[2024-06-28] MEDS: methylPREDNISolone SOD SUCC 125 MG/2 ML VL IV ONE (18:39)
--- NOTE | 2024-06-28 19:17 | ECG ---
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
[2024-06-28 19:49] VITALS: PULSE 101; RESP 14; O2SAT 98
[2024-06-28 23:39] VITALS: BP 115/72; PULSE 104; RESP 21; TEMP 98.1; O2SAT 98
== END 2024-06-29 00:07 | disposition hospice, inpatient (51) ==
LOC: ER 16:45 → EDBD 16:45 → ER 06-29 00:07
DX: J96.00 Acute respiratory failure, unspecified whether with hypoxia or hypercapnia (principal); N17.1 Acute kidney failure with acute cortical necrosis; E87.5 Hyperkalemia; J44.1 Chronic obstructive pulmonary disease with (acute) exacerbation; I50.9 Heart failure, unspecified; Z90.49 Acquired absence of other specified parts of digestive tract; Z20.822 Contact with and (suspected) exposure to COVID-19
CPT/HCPCS: 36415; 71045; 80048; 83880; 84484; 85025; 85379; 87426; 87804; 93005; 96374; 99291; J2919

== ENCOUNTER 2024-07-01 02:28 | Inpatient (IN) | payer OTHER ==
[2024-07-01] VITALS (14 sets, daily range): BP systolic 113–145; BP diastolic 65–95; PULSE 50–96; RESP 12–25; TEMP 97.8–98.9; O2SAT 93–98
[~2024-07-01] VITALS: Ht 167.6 cm; Wt 79.9 kg
--- NOTE | 2024-07-01 02:41 | ED.PDOC ---
SOB-HPI HPI Comments 89-year-old male came to ER via EMS for shortness of breath. Per EMS, patient picked up at home, has history of AFib, CHF and COPD, on home oxygen 3 liters/minute. Patient woke up yesterday, with sudden onset shortness of breath, progressively worsening with chest tightness and wheezing. Inhalers taken offered no relief. Upon arrival paramedics, patient is saturating 98% at 3 liters/minute, however is tachypneic 50-60 cpm. Patient was placed on CPAP while en route to the ER. Chief Complaint: Shortness of breath Time Seen by MD: 02:40 Reviewed notes: Weights And Measures Sealer Notes Information Source: Patient, Emergency Med Personnel Mode of Arrival: EMS Severity: Moderate Timing: Hours Duration: Since onset Context: At Rest, With Light Exertion PE Risk Factors: None History of: COPD Prehospital treatment: C-Pap, Oxygen Modifying Factors: Nothing Associated Signs and Symptoms: Wheeze, Chest Pain Quality: Tightness Past Medical History PAST MEDICAL HISTORY: CHF, COPD Surgical History: Denies all surgeries Family History Family History: Reviewed,noncontributory to illness Social History Smoker: Non-Smoker Alcohol: Denies ETOH Use Drugs: Denies Drug Use Lives In: Home Constitutional: reports: weakness; denies: chills, diaphoresis, fatigue, fever, malaise, sweats, others EENTM: denies: blurred vision, double vision, ear bleeding, ear discharge, ear drainage, ear pain, ear ringing, eye pain, eye redness, hearing loss, mouth pain, mouth swelling, nasal discharge, nose bleeding, nose congestion, nose pain, photophobia, tearing, throat pain, throat swelling, voice changes, others Respiratory: reports: SOB at rest, shortness of breath, SOB with excertion; denies: cough, hemoptysis, orthopnea, stridor, wheezing, others Cardiovascular: reports: chest pain, edema; denies: dizzy spells, diaphoresis, Dyspnea on exertion, irregular heart beat, left arm pain, lightheadedness, palpi tations, PND, syncope, others Gastrointestinal: denies: abdomen distended, abdominal pain, blood streaked bowels, constipated, diarrhea, dysphagia, difficulty swallowing, hematemesis, melena, nausea, poor appetite, poor fluid intake, rectal bleeding, rectal pain, vomiting, others Genitourinary: denies: burning, dysuria, flank pain, frequency, hematuria, incontinence, penile discharge, penile sore, pain, testicle pain, testicle swelling, urgency, others Neurological: denies: dizziness, fainting, headache, left sided numbness, left sided weakness, numbness, paresthesia, pre-existing deficit, right sided numbness, right sided weakness, seizure, speech problems, tingling, tremors, weakness, others Musculoskeletal: denies: back pain, gout, joint pain, joint swelling, muscle pain, muscle stiffness, neck pain, others Integumetry: denies: bruises, change in color, change in hair/nails, dryness, laceration, lesions, lumps, rash, wounds, others Allergic/Immunocompromised: denies: Difficulty Healing, Frequent Infections, Hives, Itching, others Hematologic/Lymphatic: denies: anemia, blood clots, easy bleeding, easy bruis ing, swollen glands, others Endocrine: denies: excessive hunger, excessive sweating, excessive thirst, exc essive urination, flushing, intolerance to cold, intolerance to heat, unexplained weight gain, unexplained weight loss, others Psychiatric: denies: anxiety, bipolar disorder, depression, hopeless, panic disorder, schizophrenia, sleepless, suicidal, others Physical Exam General Appearance: No Apparent Distress, Normal HEENT: Normal ENT Inspection, Pharynx Normal, TMs Normal Neck: Full Range of Motion, Non-Tender, Normal, Normal Inspection Respiratory: Chest Non-Tender, Lungs Clear, No Accessory Muscle Use, No Resp iratory Distress, Normal Breath Sounds Cardiovascular: No Edema, No JVD, No Murmur, No Gallop, Normal Peripheral Pulses, Regular Rate/Rhythm Breast Exam: Deferred Gastrointestinal: No Organomegaly, Non Tender, No Pulsatile Mass, Normal Bowel Sounds, Soft Genitalia: Deferred Pelvic: Deferred Rectal: Deferred Extremities: No calf tenderness, Normal capillary refill, Normal inspection, Normal range of motion, Non-tender, No pedal edema Musculoskeletal : Apperance: Normal Neurologic: Alert, computer game programmer II-XII nml as Tested, No Motor Deficits, Normal Affect, Normal Mood, No Sensory Deficits Cerebellar Function: Normal Reflexes: Normal Skin: Dry, Normal Color, Warm Lymphatic: No Adenopathy Was a procedure done? Was a procedure done?: No Differential Dx Differential Diagnosis: CHF, COPD, Myocardial infarction, Panic Attack, Pneumonia, Respiratory Distress, URI X-Ray, Labs, Meds, VS Vital Signs Date Time Temp Pulse Resp B/P (MAP) Pulse Ox O2 Delivery O2 Flow Rate FiO2 07/01/24 04:05 82 138/33 Facial BiPAP Mask 40 07/01/24 03:15 33 98 Bi-Pap+ 50 50 07/01/24 02:35 108 07/01/24 02:33 123 Facial BiPAP Mask 50 07/01/24 02:28 97.6 111 30 150/75 (100) 98 Lab Test 07/01/24 03:05 07/01/24 02:56 Range/Units White Blood Count Pending Red Blood Count Pending Hemoglobin Pending Hematocrit Pending Mean Corpuscular Volume Pending Mean Corpuscular Hemoglobin Pending Mean Corpuscular Hemoglobin Concent Pending Red Cell Distribution Width Pending Platelet Count Pending Mean Platelet Volume Pending Neutrophils (%) (Auto) Pending Lymphocytes (%) (Auto) Pending Monocytes (%) (Auto) Pending Basophils (%) (Auto) Pending Neutrophils # (Auto) Pending Lymphocytes # (Auto) Pending Monocytes # (Auto) Pending Prothrombin Time 12.4 H 9.3-11.8 sec Prothrombin Time INR 1.19 H 0.9-1.15 Activated Partial Thromboplast Time 27.8 24.5-34.5 SEC Sodium Level 135 L 136-145 mmol/L Potassium Level 4.9 3.5-5.1 mmol/L Chloride Level 101 98-107 mmol/L Carbon Dioxide Level 26 20-31 mmol/L Anion Gap 8 5-15 Blood Urea Nitrogen 33 H 9-23 mg/dL Creatinine 1.66 H 0.700-1.30 mg/dL Glomerular Filtration Rate Calc 40 >90 mL/min BUN/Creatinine Ratio 19.9 10.0-20.0 Serum Glucose 113 H 74-106 mg/dL Calcium Level 8.6 L 8.7-10.4 mg/dL Total Bilirubin 0.2 0.2-1.0 mg/dL Aspartate Amino Transferase (AST) 13 13-40 U/L Alanine Aminotransferase (ALT) 17 7-40 U/L Alkaline Phosphatase 52 46-116 U/L Troponin I High Sensitivity 56 *H </=54 ng/L B-Type Natriuretic Peptide 152.07 0-100 pg/mL Total Protein 5.5 L 5.7-8.2 g/dL Albumin 3.6 3.2-4.8 g/dL Blood Gas Specimen Type Arterial Blood Gas Sample Site Left brachial Blood Gas Patient Temperature 37.0 Arterial Blood Date Drawn [id number] Arterial Blood pH 7.370 7.350-7.450 Arterial Blood Partial Pressure CO2 42.0 35.0-48.0 mmHg Arterial Blood Partial Pressure O2 177.2 H 83.0-108.0 mmHg Arterial Blood HCO3 23.7 21.0-28.0 mmol/L Arterial Blood Oxygen Saturation 96.2 94.0-98.0 % Arterial Blood Base Excess -1.5 -2.0-3.0 mmol/L Arterial Blood Oxyhemoglobin 95.7 94.0-98.0 % Arterial Blood Carboxyhemoglobin 0.2 L 0.5-1.5 % Arterial Blood Methemoglobin 0.3 0.0-1.5 % Apollo Test N/a Blood Gas Total Hemoglobin 11.00 L 13.5-17.5 g/dL Blood Gas Set Respiration Rate 12.0 Blood Gas Modality Mask - bipap Blood Gas Spontaneous Rate 36 FiO2 % 50.0 Blood Gas EPAP 5 Blood Gas IPAP 12 Current Medications Medications (Trade) Dose Ordered Sig/Kalpana Route Start Time Stop Time Status Last Admin Albuterol (Ventolin Medneb) 10 mg ONCE ONCE NEB 07/01/24 02:45 07/01/24 02:46 DC 07/01/24 03:14 Ipratropium [place] (Atrovent Medneb) 1 mg ONCE ONCE NEB 07/01/24 02:45 07/01/24 02:46 DC 07/01/24 03:14 PROCEDURE(s): CXRP - CHEST PORTABLE Examination: CXRP Clinical Indication: sob Comparison: None. Technique: Frontal radiograph of the chest was obtained. Findings: Eventration of left hemidiaphragm is noted. Atelectasis is seen in the basal segments of the bilateral lower lobes. Both the lung leblanc appear clear. Both the costophrenic and cardiophrenic angles are normal. Trachea and mediastinum are midline. Cardiac size is within normal limits. There is no evidence of pleural effusion or pneumothorax. Degenerative changes are noted in the shoulder joint and in the thoracic spine. Impression: 1. Eventration of left hemidiaphragm is noted. 2. Atelectasis is seen in the basal segments of the bilateral lower lobes. First troponin is 56. Second troponin pending. EKG shows no changes. The BNP 152. The patient is on BiPAP while Respiratory therapy is engaged in weaning the GX. The patient will be admitted to the hospitalist for further evaluation and care Time of 1ST Reevaluation: 02:36 Reevaluation 1ST: Unchanged Patient Education/Counseling: Diagnosis, Treatment Family Education/Counseling: No Family Present Departure 1 Departure Time of Disposition: 04:40 Impression: Primary Impression: Acute hypoxic respiratory failure Additional Impression: Elevated troponin Disposition: ADMITTED INPATIENT Admit to: Tele Condition: Guarded Critical Care Note Critical Care Time?: Yes (35 min-critical care time only) Critical care comment: Shortness a breath Stability Stability form required: No Heart Score Heart Score: Heart Score Response (Comments) Value History Moderate Suspicious 1 EKG Repolarization Disturb 1 Age >65 2 Risk Factors >3 or Hx ASHD 2 Troponin Normal limit 0 Total 6 I personally scribed for VITALY YUNG MD ([email or web address]) on 07/01/24 at 02:41. Electronically submitted by Velasquez Cheung ([email or web address]). I personally scribed for VITALY YUNG MD ([email or web address]) on 07/01/24 at 04:10. Electronically submitted by Velasquez Cheung ([email or web address]). VITALY YUNG MD Jul 01, 2024 02:41
--- NOTE | 2024-07-01 03:13 | DVH ---
Examination: CXRP Clinical Indication: sob Comparison: None. Technique: Frontal radiograph of the chest was obtained. Findings: Eventration of left hemidiaphragm is noted. Atelectasis is seen in the basal segments of the bilatera l lower lobes. Both the lung leblanc appear clear. Both the costophrenic and cardiophrenic angles are normal. Trachea and mediastinum are midline. Cardiac size is within normal limits. There is no evidence of pleural effusion or pneumothorax. Degenerative changes are noted in the shoulder joint and in the thoracic spine. Impression: 1. Eventration of left hemidiaphragm is noted. 2. Atelectasis is seen in the basal segments of the bilateral lower lobes. Electronically Signed 07/01/2024 03:12 Gorge Borden
[2024-07-01] MEDS: ALBUTEROL SULF 2.5 MG/0.5ML(0.5%) NEB SOLN NEB ONE (03:14)
[2024-07-01] MEDS: IPRATROPIUM BROM 0.5 MG/2.5ML INH SOL NEB ONE (03:14)
[2024-07-01 03:16] LABS: Basophils # (auto) 0 10 ^3/uL (0-0.2); Basophils % (auto) 0.1 % (0.0-2.0); Eosinophils # (auto) 0 10 ^3/uL (0-0.8); Eosinophils % (auto) 0.4 % (0.0-7.0); Hematocrit 33.8 % (41.0-53.0); Hemoglobin 10.9 g/dL (13.5-17.5); Lymphocytes # (auto) 0.2 10 ^3/uL (0.4-5.4); Lymphocytes % (auto) 4.3 % (10.0-50.0); Mean Corpuscular Hgb Conc. 32.1 g/dL (32.0-36.0); Mean Corpuscular Volume 96.4 fL (80.0-100.0); Monocytes # (auto) 0.3 10 ^3/uL (0-1.3); Monocytes % (auto) 5.3 % (0.0-12.0); Neutrophils # (auto) 5.1 10 ^3/uL (1.6-8.6); Neutrophils % (auto) 89.9 % (37.0-80.0); Nucleated Red Blood Cells % 0.1 %; Platelet Count (auto) 113 10^3/uL (140-450); Red Blood Cells 3.51 10^6/uL (4.5-5.90); Red Cell Distribution Width 17.9 % (11.8-14.3); White Blood Cell 5.7 10^3/uL (4.4-10.8)
[2024-07-01 03:45] LABS: INR 1.19 (0.9-1.15); Partial Thromboplastin Time 27.8 SEC (24.5-34.5); Prothrombin Time 12.4 sec (9.3-11.8)
[2024-07-01 03:49] LABS: Alanine Aminotransferase 17 U/L (7-40); Albumin 3.6 g/dL (3.2-4.8); Alkaline Phosphatase 52 U/L (46-116); Anion Gap 8 (5-15); BUN/Creatinine Ratio 19.9 (10.0-20.0); Carbon Dioxide 26 mmol/L (20-31); Chloride 101 mmol/L (98-107); Potassium 4.9 mmol/L (3.5-5.1)
[2024-07-01 04:16] LABS: Aspartate Aminotransferase 13 U/L (13-40); Bilirubin, Total 0.2 mg/dL (0.2-1.0); Blood Urea Nitrogen 33 mg/dL (9-23); Calcium 8.6 mg/dL (8.7-10.4); Glucose 113 mg/dL (74-106); Sodium 135 mmol/L (136-145); Total Protein 5.5 g/dL (5.7-8.2)
[2024-07-01 04:19] LABS: Base Excess -1.5 mmol/L (-2.0-3.0)
[2024-07-01] MEDS ORDERED: MONT-8 PO (11:43)
[2024-07-01] MEDS ORDERED: TAMS0.4C39 PO (11:43)
[2024-07-01] MEDS ORDERED: APIX5TAB PO (11:43)
[2024-07-01] MEDS ORDERED: OMEP-420 PO (11:43)
[2024-07-01] MEDS ORDERED: POTA-215 PO (11:43)
[2024-07-01] MEDS ORDERED: LEVO75TA6 PO (11:43)
[2024-07-01] MEDS ORDERED: METOPROLOL TARTRATE 25 MG TAB PO ONE (11:45)
[2024-07-01] MEDS ORDERED: IPRATROPIUM BROM 0.5 MG/2.5ML INH SOL NEB PRN (11:45)
[2024-07-01] MEDS ORDERED: MORPHINE SULFATE INJ 2 MG/ml SYRG IV PRN (11:45)
[2024-07-01] MEDS ORDERED: NITROGLYCERIN 0.4 MG SL TAB SL PRN (11:45)
[2024-07-01] MEDS: IPRATROPIUM BROM 0.5 MG/2.5ML INH SOL NEB SCH (12:15)
--- NOTE | 2024-07-01 12:15 | DVHHP2 ---
History of Present Illness Reason for Visit: Shortness of breath History of Present Illness This 89-year-old male presents in the ED via EMS with a chief complaint of shortness of breath. The patient reports was recently admit in [facility] for shortness of breath, was discharged yesterday, and as soon as patient got home he developed progressive shortness of breath prompting him to call 911. The patient reports symptoms is associated with shortness of breath on exertion, dyspnea, productive cough, and intermittent chest sharp pain. Upon assessment, the patient denies shortness of breath, difficulty in breathing, chest pain, or other acute symptoms. Past medical history of chronic AFib on Eliquis, CHF, and COPD on O2. Past Medical History As stated in HPI Past Surgical History Denies Family History Reviewed, non-contributory to the management of this case. Past Social History The patient lives at home, denies smoking, alcohol or illicit drugs abuse. Review of Systems Constitutional: Yes: Malaise; No: Fever, Chills, Sweats, Weakness, Other Eyes: No: Pain, Vision change, Conjunctivae inflammation, Eyelid inflammation, Other, Redness ENT: No: Ear pain, Ear discharge, Nose pain, Nose discharge, Nose congestion, Mouth pain, Mouth swelling, Throat pain, Throat swelling, Other Respiratory: Cough, Shortness of breath, SOB with excertion; No: Dry, Wheezing, Hemoptysis, Pleuritic Pain, Sputum, Wheezing, Other Cardiovascular: Chest Pain; No: Palpitations, Orthopnea, Paroxysmal Noc. Dyspnea, Edema, Lt Headedness, Other Gastrointestinal: No: Nausea, Vomiting, Abdominal Pain, Diarrhea, Constipation, Melena, Hematochezia, Other Genitourinary: No Dysuria, No Frequency, No Incontinence, No Hematuria, No Retention, No Other Musculoskeletal: No: other, neck pain, shoulder pain, arm pain, back pain, hand pain, leg pain, foot pain Skin: No: Rash, Lesions, Jaundice, Bruising, Other Neurological: No: Weakness, Numbness, Incoordination, Change in speech, Confusion, Seizures, Other Allergies: Coded Allergies: NO KNOWN ALLERGIES (Unverified , 07/01/24) Medications Current Medications Medications Dose Ordered Sig/Kalpana Route Start Time Stop Time Status Last Admin Dose Admin Apixaban 0.5 mg BID PO 07/01/24 22:00 UNV Montelukast Sodium 10 mg DAILY PO 07/02/24 10:00 Tamsulosin HCl 0.4 mg DAILY PO 07/02/24 10:00 Patient Own Medication 1 mg DAILY PO 07/02/24 10:00 UNV Patient Own Medication 20 mg DAILY PO 07/02/24 10:00 UNV Patient Own Medication 10 meq DAILY PO 07/02/24 10:00 UNV Exam Vital Signs Vital Signs Date Time Temp Pulse Resp B/P (MAP) Pulse Ox O2 Delivery O2 Flow Rate FiO2 07/01/24 11:41 82 07/01/24 08:57 12 Nasal Cannula* 3 32 07/01/24 08:42 97.8 145/95 95 97.8 General Appearance: Alert, Oriented X3, Cooperative, mild distress HEENT: Atraumatic, PERRLA, EOMI Respiratory: Other (Diminished lung sounds) Cardiovascular: Other (Atrial fibrillation, bilateral lower extremity pitting edema) Abdominal: Normal bowel sounds, Soft, No tenderness Extremities: No clubbing Skin: No rashes, No breakdown Neuro: Normal gait Psych/Mental Status: Mental status NL Labs/Xrays Labs Test 07/01/24 07:40 07/01/24 03:05 07/01/24 02:56 Range/Units Troponin I High Sensitivity 55 *H </=54 ng/L White Blood Count 5.7 4.4-10.8 10^3/uL Red Blood Count 3.51 L 4.5-5.90 10^6/uL Hemoglobin 10.9 L 13.5-17.5 g/dL Hematocrit 33.8 L 41.0-53.0 % Mean Corpuscular Volume 96.4 80.0-100.0 fL Mean Corpuscular Hemoglobin 31.0 28.0-32.0 pg Mean Corpuscular Hemoglobin Concent 32.1 32.0-36.0 g/dL Red Cell Distribution Width 17.9 H 11.8-14.3 % Platelet Count 113 L 140-450 10^3/uL Mean Platelet Volume 8.1 6.9-10.8 fL Neutrophils (%) (Auto) 89.9 H 37.0-80.0 % Lymphocytes (%) (Auto) 4.3 L 10.0-50.0 % Monocytes (%) (Auto) 5.3 0.0-12.0 % Eosinophils (%) (Auto) 0.4 0.0-7.0 % Basophils (%) (Auto) 0.1 0.0-2.0 % Neutrophils # (Auto) 5.1 1.6-8.6 10 ^3/uL Lymphocytes # (Auto) 0.2 L 0.4-5.4 10 ^3/uL Monocytes # (Auto) 0.3 0-1.3 10 ^3/uL Eosinophils # (Auto) 0 0-0.8 10 ^3/uL Basophils # (Auto) 0 0-0.2 10 ^3/uL Nucleated Red Blood Cells 0.1 % Prothrombin Time 12.4 H 9.3-11.8 sec Prothrombin Time INR 1.19 H 0.9-1.15 Activated Partial Thromboplast Time 27.8 24.5-34.5 SEC Sodium Level 135 L 136-145 mmol/L Potassium Level 4.9 3.5-5.1 mmol/L Chloride Level 101 98-107 mmol/L Carbon Dioxide Level 26 20-31 mmol/L Anion Gap 8 5-15 Blood Urea Nitrogen 33 H 9-23 mg/dL Creatinine 1.66 H 0.700-1.30 mg/dL Glomerular Filtration Rate Calc 40 >90 mL/min BUN/Creatinine Ratio 19.9 10.0-20.0 Serum Glucose 113 H 74-106 mg/dL Calcium Level 8.6 L 8.7-10.4 mg/dL Total Bilirubin 0.2 0.2-1.0 mg/dL Aspartate Amino Transferase (AST) 13 13-40 U/L Alanine Aminotransferase (ALT) 17 7-40 U/L Alkaline Phosphatase 52 46-116 U/L B-Type Natriuretic Peptide 152.07 0-100 pg/mL Total Protein 5.5 L 5.7-8.2 g/dL Albumin 3.6 3.2-4.8 g/dL Blood Gas Specimen Type Arterial Blood Gas Sample Site Left brachial Blood Gas Patient Temperature 37.0 Arterial Blood Date Drawn Arterial Blood pH 7.370 7.350-7.450 Arterial Blood Partial Pressure CO2 42.0 35.0-48.0 mmHg Arterial Blood Partial Pressure O2 177.2 H 83.0-108.0 mmHg Arterial Blood HCO3 23.7 21.0-28.0 mmol/L Arterial Blood Oxygen Saturation 96.2 94.0-98.0 % Arterial Blood Base Excess -1.5 -2.0-3.0 mmol/L Arterial Blood Oxyhemoglobin 95.7 94.0-98.0 % Arterial Blood Carboxyhemoglobin 0.2 L 0.5-1.5 % Arterial Blood Methemoglobin 0.3 0.0-1.5 % Apollo Test N/a Blood Gas Total Hemoglobin 11.00 L 13.5-17.5 g/dL Blood Gas Set Respiration Rate 12.0 Blood Gas Modality Mask - bipap Blood Gas Spontaneous Rate 36 FiO2 % 50.0 Blood Gas EPAP 5 Blood Gas IPAP 12 PROCEDURE(s): CXRP - CHEST PORTABLE REASON: sob ORDER NUMBER(s): [id number], ACCESSION NUMBER(s): [id number] Examination: CXRP Clinical Indication: sob Comparison: None. Technique: Frontal radiograph of the chest was obtained. Findings: Eventration of left hemidiaphragm is noted. Atelectasis is seen in the basal segments of the bilateral lower lobes. Both the lung leblanc appear clear. Both the costophrenic and cardiophrenic angles are normal. Trachea and mediastinum are midline. Cardiac size is within normal limits. There is no evidence of pleural effusion or pneumothorax. Degenerative changes are noted in the shoulder joint and in the thoracic spine. Impression: 1. Eventration of left hemidiaphragm is noted. 2. Atelectasis is seen in the basal segments of the bilateral lower lobes. 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 Monitor Avoid nephrotoxins if possible # BPH Tamsulosin DVT prophylaxis Medical plan discussed with patient and RN Plan discussed with: Patient My Orders Orders - NGUYEN PETERS [employer] Procedure Category Date Status Time Troponin-I Hs LAB 07/01/24 Logged 11:43 Apixaban (Eliquis) PHA 07/01/24 Logged 22:00 Montelukast Tablet PHA 07/02/24 In Process (Singulair Tablet) 10:00 Tamsulosin PHA 07/02/24 In Process Hydrochloride (Flomax) 10:00 (Nf) Levothyroxine PHA 07/02/24 Logged Sodium 10:00 (Nf) Omeprazole (Gnp PHA 07/02/24 Logged Omeprazole Odt) 10:00 (Nf) Potassium PHA 07/02/24 Logged Chloride (Klor-Con 10:00 Albuterol Medneb PHA 07/01/24 Logged (Ventolin Medneb) 11:45 Metoprolol Tartrate PHA 07/01/24 Logged Tablet (Lopressor Ta 11:45 Metoprolol Tartrate PHA 07/01/24 Logged Tablet (Lopressor Ta 11:45 Ipratropium Medneb PHA 07/01/24 Logged (Atrovent Medneb) 11:45 Ipratropium Medneb PHA 07/01/24 Logged (Atrovent Medneb) 12:00 Blood Culture SHABNAM 07/01/24 Logged 11:44 Respiratory Culture SHABNAM 07/01/24 Logged W/ Gs 11:44 Furosemide Injection PHA 07/02/24 Logged (Lasix Injection) 10:00 Furosemide Injection PHA 07/01/24 Logged (Lasix Injection) 11:45 Chest Portable XY 07/02/24 Logged 04:00 * Cardiology Consult CONS 07/01/24 Transmitted 11:44 Doxycycline Tablet PHA 07/01/24 Logged (Vibramycin Tablet) 22:00 B-Type Natriuretic LAB 07/02/24 Verified Peptide 04:00 Admit ADMIT 07/01/24 Transmitted 11:44 Code Status CODE 07/01/24 Transmitted 11:44 Fall Risk Precautions ERICH 07/01/[address] 11:44 Complete Blood Count LAB 07/02/24 Verified 04:00 Comprehensive LAB 07/02/24 Verified Metabolic Panel 04:00 Cardiac DIET 07/01/24 Transmitted Diet-2gna,Lofat,Lochol Lunch Echo 2d Mode Cardiac US 07/01/24 Logged DOP 11:44 Condition: Fair ERICH 07/01/24 In Process 11:44 Nitroglycerin PHA 07/01/24 Logged Sublingual (Ntrostat 11:45 Morphine Sulfate PHA 07/01/24 Logged Injection 11:45 Stat Ekg For Chest ERICH 07/01/24 In Process Pain 11:44 Notify Md Of Changes ERICH 07/01/24 In Process From Base 11:44 Cooker Soda For ERICH 07/01/24 In Process 24 Hours 11:44 Emergency Dysrhythmia ERICH 07/01/24 In Process Protocol 11:44 Rhythm Strips Once ERICH 07/01/24 In Process Every Shift 11:44 Oxygen By Nasal RT 07/01/24 Transmitted Cannula 11:44 Methylprednisolone PHA 07/01/24 Transmitted Sod Succ (Solu Medrol 14:00 Date of Service: Jul 01, 2024 Billing Provider: NGUYEN PETERSP Common Visit Codes: [id number] INP/OBS CARE (HIGH) NGUYEN PETERS [employer] Jul 01, 2024 12:15
[2024-07-01] MEDS: FUROSEMIDE 20 MG/2 ML VIAL IV ONE (12:22)
[2024-07-01] MEDS: METOPROLOL TARTRATE 25 MG TAB PO ONE (12:26)
[2024-07-01] MEDS: methylPREDNISolone SOD SUCC 40 MG/ML VL IV SCH (14:33)
--- NOTE | 2024-07-01 16:11 | DVHINCON2 ---
Date Seen: Jul 01, 2024 Referring Physician ANGEL Zaman Reason for Consultation Elevated troponin History of Present Illness This is an 89-year-old male patient who presents to the emergency room with chief complaint of worsening shortness of breath for one day. Patient was recently discharged one day ago from [facility]. He now comes to the emergency room with complaints of worsening shortness of breath. Cardiology has now been consulted for CHF exacerbation. Initial twelve lead electrocardiogram reveals atrial fibrillation. Initial troponin level of 56ng/L with flat trend thereafter. Initial BNP level of 152.07pg/mL. Significant past medical history includes congestive heart failure, atrial fibrillation (on Eliquis), COPD, thyroid disease, BPH, peripheral neuropathy, and GERD. Unclear if patient was ever had ischemic workup but patient denies any previous stent placement. 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 Past Medical History Past medical history reviewed. No other significant than mentioned above. Past Surgical History Partial thyroidectomy Cervical neck surgery Bilateral knee replacement Family History Family history reviewed. Social History Patient has a 25 pack-year history, quit smoking in 1979 Patient denies any illicit drug use Patient denies any alcohol use Allergies: Coded Allergies: NO KNOWN ALLERGIES (Unverified , 07/01/24) Home Meds Reported Medications Furosemide (Lasix) 20 Mg Tb, 1 TAB PO DAILY, #90 TAB 1 Refill 07/01/24 Omeprazole (Gnp Omeprazole Odt) 20 Mg Tab, 20 MG PO DAILY 07/01/24 Potassium Chloride (Klor-Con M10) 10 Meq Tab, 10 MEQ PO DAILY 07/01/24 Montelukast Sodium (MONTELUKAST SODIUM) 10 Mg Tab, 10 MG PO DAILY 07/01/24 Tamsulosin Hcl (Tamsulosin Hcl) 0.4 Mg Cap, 0.4 MG PO DAILY 07/01/24 Levothyroxine Sodium (Levothyroxine Sodium) 75 Mcg Tab, 1 MG PO DAILY 07/01/24 Apixaban Base (ELIQUIS) 5 Mg Tab, 2.5 MG PO BID 07/01/24 Home Meds Home medications reviewed. Current Medications Current Medications Medications (Trade) Dose Ordered Sig/Kalpana Route PRN Reason Start Time Stop Time Status Last Admin Apixaban (Eliquis) 2.5 mg BID PO 07/01/24 22:00 Montelukast Sodium (Singulair Tablet) 10 mg DAILY PO 07/02/24 10:00 Tamsulosin HCl (Flomax) 0.4 mg DAILY PO 07/02/24 10:00 Levothyroxine Sodium (Synthroid Tablet) 75 mcg DAILY PO 07/02/24 10:00 Patient Own Medication 20 mg DAILY PO 07/02/24 10:00 UNV Potassium Chloride (Klor-Con Tablet) 10 meq DAILY PO 07/02/24 10:00 Future Hold Albuterol (Ventolin Medneb) 2.5 mg Q4HPRN PRN NEB SHORTNESS OF BREATH 07/01/24 11:45 Ipratropium [place] (Atrovent Medneb) 0.5 mg Q4HPRN PRN NEB SHORTNESS OF BREATH 07/01/24 11:45 Ipratropium [place] (Atrovent Medneb) 0.5 mg Q6HR NEB 07/01/24 12:00 07/01/24 12:15 Furosemide (Lasix Injection) 10 mg DAILY IV 07/02/24 10:00 Doxycycline Monohydrate (Vibramycin Tablet) 100 mg Q12HR PO 07/01/24 22:00 Nitroglycerin (Ntrostat Sublingual) 0.4 mg Q5MINP PRN SL FOR CHEST PAIN 07/01/24 11:45 Morphine Sulfate 2 mg Q30M PRN IV FOR CHEST PAIN 07/01/24 11:45 Methylprednisolone Sodium Succinate (Solu Medrol) 40 mg Q8HR IV 07/01/24 14:00 07/01/24 14:33 Metoprolol Tartrate (Lopressor Tablet) 12.5 mg BID PO 07/01/24 22:00 Omeprazole (PriLOSEC CAPSULE) 20 mg DAILY PO 07/02/24 10:00 Review of Systems Constitutional: No symptom reported Ears, Nose, & Throat: No symptom reported Eyes: No symptom reported Neurological: No symptoms reported Pulmonary/Respiratory: Shortness of breath Cardiovascular: No symptom reported Gastrointestinal: No symptom reported Genitourinary: No symptom reported Musculoskeletal: No symptom reported Skin: No symptom reported Psychiatric: No symptom reported Endocrine: No symptom reported Hematologic/Lymphatic: No symptom reported Vital Signs Vital Signs Date Time Temp Pulse Resp B/P (MAP) Pulse Ox O2 Delivery O2 Flow Rate FiO2 07/01/24 15:37 98.9 68 17 117/71 (86) 97 98.9 07/01/24 12:15 Nasal Cannula 3.0 07/01/24 12:15 32 Physical Exam General Appearance: Cooperative. Well-developed. Well-nourished. No acute distress. Pulmonary/Respiratory: Diminished bilateral lower lobes Cardiovascular/Chest: Irregular rate and rhythm. Peripheral Pulses: 2+ Radial (R). 2+ Radial (L). Abdominal Exam: Normal bowel sounds. Ankle Exam: 3+ pitting edema Lower extremities: 3+ pitting edema Neuro/Mental Status: A/OX4, coherent. Thoughts/Psych: Normal thought pattern. Appropriate mood and affect. Good judgment and insight. Appearance: No acute distress. Skin Exam: Generalized ecchymosis. Skin warm and dry. Bilateral lower extremity redness Labs/Diagnostic Data Labs Test 07/01/24 11:57 07/01/24 03:05 07/01/24 02:56 Range/Units Troponin I High Sensitivity 61 *H </=54 ng/L Thyroid Stimulating Hormone (TSH) 2.67 0.55-4.78 uIU/mL White Blood Count 5.7 4.4-10.8 10^3/uL Red Blood Count 3.51 L 4.5-5.90 10^6/uL Hemoglobin 10.9 L 13.5-17.5 g/dL Hematocrit 33.8 L 41.0-53.0 % Mean Corpuscular Volume 96.4 80.0-100.0 fL Mean Corpuscular Hemoglobin 31.0 28.0-32.0 pg Mean Corpuscular Hemoglobin Concent 32.1 32.0-36.0 g/dL Red Cell Distribution Width 17.9 H 11.8-14.3 % Platelet Count 113 L 140-450 10^3/uL Mean Platelet Volume 8.1 6.9-10.8 fL Neutrophils (%) (Auto) 89.9 H 37.0-80.0 % Lymphocytes (%) (Auto) 4.3 L 10.0-50.0 % Monocytes (%) (Auto) 5.3 0.0-12.0 % Eosinophils (%) (Auto) 0.4 0.0-7.0 % Basophils (%) (Auto) 0.1 0.0-2.0 % Neutrophils # (Auto) 5.1 1.6-8.6 10 ^3/uL Lymphocytes # (Auto) 0.2 L 0.4-5.4 10 ^3/uL Monocytes # (Auto) 0.3 0-1.3 10 ^3/uL Eosinophils # (Auto) 0 0-0.8 10 ^3/uL Basophils # (Auto) 0 0-0.2 10 ^3/uL Nucleated Red Blood Cells 0.1 % Prothrombin Time 12.4 H 9.3-11.8 sec Prothrombin Time INR 1.19 H 0.9-1.15 Activated Partial Thromboplast Time 27.8 24.5-34.5 SEC Sodium Level 135 L 136-145 mmol/L Potassium Level 4.9 3.5-5.1 mmol/L Chloride Level 101 98-107 mmol/L Carbon Dioxide Level 26 20-31 mmol/L Anion Gap 8 5-15 Blood Urea Nitrogen 33 H 9-23 mg/dL Creatinine 1.66 H 0.700-1.30 mg/dL Glomerular Filtration Rate Calc 40 >90 mL/min BUN/Creatinine Ratio 19.9 10.0-20.0 Serum Glucose 113 H 74-106 mg/dL Calcium Level 8.6 L 8.7-10.4 mg/dL Total Bilirubin 0.2 0.2-1.0 mg/dL Aspartate Amino Transferase (AST) 13 13-40 U/L Alanine Aminotransferase (ALT) 17 7-40 U/L Alkaline Phosphatase 52 46-116 U/L B-Type Natriuretic Peptide 152.07 0-100 pg/mL Total Protein 5.5 L 5.7-8.2 g/dL Albumin 3.6 3.2-4.8 g/dL Blood Gas Specimen Type Arterial Blood Gas Sample Site Left brachial Blood Gas Patient Temperature 37.0 Arterial Blood Date Drawn [id number] Arterial Blood pH 7.370 7.350-7.450 Arterial Blood Partial Pressure CO2 42.0 35.0-48.0 mmHg Arterial Blood Partial Pressure O2 177.2 H 83.0-108.0 mmHg Arterial Blood HCO3 23.7 21.0-28.0 mmol/L Arterial Blood Oxygen Saturation 96.2 94.0-98.0 % Arterial Blood Base Excess -1.5 -2.0-3.0 mmol/L Arterial Blood Oxyhemoglobin 95.7 94.0-98.0 % Arterial Blood Carboxyhemoglobin 0.2 L 0.5-1.5 % Arterial Blood Methemoglobin 0.3 0.0-1.5 % Apollo Test N/a Blood Gas Total Hemoglobin 11.00 L 13.5-17.5 g/dL Blood Gas Set Respiration Rate 12.0 Blood Gas Modality Mask - bipap Blood Gas Spontaneous Rate 36 FiO2 % 50.0 Blood Gas EPAP 5 Blood Gas IPAP 12 Assessment Acute on chronic decompensated HFrEF, NYHA class III NSTEMI, likely type 2 secondary to above Atrial fibrillation, likely persistent (on Eliquis) Mitral valve regurgitation, moderate to severe degree Moderate to severe aortic root dilatation COPD Acute kidney injury Thyroid disease Peripheral neuropathy History of tobacco use Plan/Recommendation We will continue with the following plan/recommendations (Dr. Bond): * Transthoracic echocardiogram reveals EF 35-40% global hypokinesis * Moderate to severe aortic root dilatation: consider CT aortagram when creatinine improves * Initiate guideline directed medical therapy for CHF as renal function permits * Strict intake and output, daily weights, maintain fluid restriction * ?[id number] VASc score: 4 points * Continue low-dose Eliquis * Beta-tashia for rate control * Avoid antiarrhythmic agents given atrial fibrillation likely persistent * Cardiac surveillance Patient seen and examined at bedside with . Thank you for allowing us to care for this patient. Please call with any questions or concerns. Critical care time spent: 43 minutes This medical document was created using an electronic medical record system with voice recognition software and computerized dictation system. Although this document has been carefully reviewed, there might still be some phonetic and typographical errors. Occasional wrong-word or ``sound-alike substitutions may have occurred due to the inherent limitations of voice recognition software. These areas are purely typographical due to imperfections of the software programs and do not reflect any compromise in the patient's medical care. Please read the chart carefully and recognize, using context, where these substitutions have occurred. Plan discussed with: Patient NYHA Physical activity limitations: Class3(Marked) ordinary (activity causes symtoms) Date of Service: Jul 01, 2024 Billing Provider: VALENTINE ROTH Cardiology Common Codes: [id number] INP/OBS CARE (High) Cardiology Consultation Codes: [id number] CONSULT <45MIN VALENTINE ROTH Jul 01, 2024 16:11
[2024-07-01] MEDS ORDERED: FURO1TAB33 PO (16:50)
[2024-07-01 18:37] LABS: COVID19 ANTIGEN SOFIA FIA NEGATIVE (NEGATIVE)
--- NOTE | 2024-07-01 19:22 | DVHSR ---
APPROVED REPORT EXAM: Two-dimensional and M-mode echocardiogram with Doppler and color Doppler. Blood Pressure: 145/95 mmHg INDICATION Elevated trop RISK FACTORS Height: 5'6", Weight: 158 DIMENSIONS LVDd5.6 (3.8-5.7cm)LA (2D)4.6 (1.9-4.0cm)Aortic Root4.6 (2.0-3.7cm) LVDs4.4 (2.5-4.0cm)LA (MM) (1.9-4.0cm)Aortic Cusp Exc1.8 (1.5-2.0cm) EF (%) 45.0 (55-70%)Rt. Atrium4.5 (1.9-4.0cm)Asc. Aorta4.5 cm IVSd1.3 (0.7-1.1cm)RV (D) (1.8-2.4cm) PWd1.3 (0.7-1.1cm) Mitral Valve MitralMitral Stenosis E wave0.92m/sMV Mean GR.mmHg A wave0.24m/sMV Peak GR.mmHg E/A ratio3.82D MVAcm2 DECEL [id number] 1/2 Timems Aortic Valve Aortic ValveAortic Stenosis V10.62m/Perfecto Mean GR.5mmHg V21.62m/Perfecto Peak GR.10mmHg LVOT Diameter2.5 (1.8-2.4cm)Doppler AVA1.88cm2 AI P 1/2 Xafu018.82ms Tricuspid Valve TR Velocity3.54m/s [id number] LEFT VENTRICLE The left ventricle size is borderline. There is mild concentric left ventricular hypertrophy. Left ventricle systolic function is moderately reduced, LVEF is 35-40%. Global hypokinesis. RIGHT VENTRICLE The right ventricular systolic function is normal. ATRIA The left atrium is moderately dilated. The right atrium is moderately dilated. MITRAL VALVE The mitral valve is grossly normal. Mitral regurgitation is moderate to severe. PULMONIC VALVE The pulmonic valve is not well visualized. TRICUSPID VALVE The tricuspid valve is grossly normal. There is mild tricuspid regurgitation. AORTIC VALVE The aortic valve is trileaflet. There is mild aortic regurgitation. GREAT VESSELS There is moderate to severe aortic root dilatation. There is moderate dilation of the ascending aorta. PERICARDIAL EFFUSION No significant pericardial effusion. Other Information Technically limited study due to body habitus. Conclusion The left ventricle size is borderline. There is mild concentric left ventricular hypertrophy. Left ve ntricle systolic function is moderately reduced, LVEF is 35-40%. Global hypokinesis. The right ventricular systolic function is normal. The left atrium is moderately dilated. Mitral regurgitation is moderate to severe. There is moderate to severe aortic root dilatation. There is moderate dilation of the ascending aorta . No significant pericardial effusion.
[2024-07-01] MEDS: APIXABAN 2.5 MG TAB PO SCH (21:15)
[2024-07-01] MEDS: DOXYCYCLINE 100 MG TAB/CAP PO SCH (21:15)
[2024-07-01] MEDS: METOPROLOL TARTRATE 25 MG TAB PO SCH (21:19)
[2024-07-02] VITALS (16 sets, daily range): BP systolic 115–136; BP diastolic 70–77; PULSE 64–125; RESP 16–18; TEMP 97.9–98.6; O2SAT 92–100
--- NOTE | 2024-07-02 06:19 | DVH ---
EXAM: XR Chest, 1 View CLINICAL INDICATION: sob TECHNIQUE: Frontal view of the chest. COMPARISON: XY CHEST PORTABLE on DOS: 07/01/24 FINDINGS: LUNGS AND PLEURAL SPACES: Unremarkable. No consolidation. No pneumothorax. HEART: Cardiomegaly without overt failure. MEDIASTINUM: Unremarkable. Normal mediastinal contour. BONES/JOINTS: Unremarkable. No acute fracture. OTHER FINDINGS: . . IMPRESSION: Cardiomegaly without overt failure.
[2024-07-02 06:38] LABS: Basophils # (auto) 0 10 ^3/uL (0-0.2); Eosinophils # (auto) 0 10 ^3/uL (0-0.8); Hematocrit 33.4 % (41.0-53.0); Hemoglobin 10.9 g/dL (13.5-17.5); Lymphocytes # (auto) 0.2 10 ^3/uL (0.4-5.4); Lymphocytes % (auto) 5.5 % (10.0-50.0); Mean Corpuscular Hemoglobin 31.2 pg (28.0-32.0); Mean Corpuscular Hgb Conc. 32.5 g/dL (32.0-36.0); Mean Corpuscular Volume 95.9 fL (80.0-100.0); Monocytes # (auto) 0.1 10 ^3/uL (0-1.3); Monocytes % (auto) 1.7 % (0.0-12.0); Neutrophils # (auto) 3.1 10 ^3/uL (1.6-8.6); Neutrophils % (auto) 92.8 % (37.0-80.0); Nucleated Red Blood Cells % 0.2 %; Platelet Count (auto) 117 10^3/uL (140-450); Red Blood Cells 3.48 10^6/uL (4.5-5.90); Red Cell Distribution Width 17.6 % (11.8-14.3); White Blood Cell 3.3 10^3/uL (4.4-10.8)
[2024-07-02] MEDS: ALBUTEROL SULF 2.5 MG/0.5ML(0.5%) NEB SOLN NEB PRN (06:44)
[2024-07-02 06:53] LABS: Alanine Aminotransferase 19 U/L (7-40); Albumin 3.6 g/dL (3.2-4.8); Alkaline Phosphatase 50 U/L (46-116); Anion Gap 4 (5-15); Aspartate Aminotransferase 15 U/L (13-40); Bilirubin, Total 0.5 mg/dL (0.2-1.0); Carbon Dioxide 30 mmol/L (20-31); Chloride 100 mmol/L (98-107); Cholesterol 111 mg/dL (< 200); LDL Cholesterol 30 mg/dL (< 100); Magnesium 2.2 mg/dL (1.6-2.6); Triglycerides 72 mg/dL (< 150)
[2024-07-02 07:00] LABS: Blood Urea Nitrogen 31 mg/dL (9-23); Calcium 8.2 mg/dL (8.7-10.4); Glucose 123 mg/dL (74-106); HDL Cholesterol 65 mg/dL (40-59); Potassium 5.3 mmol/L (3.5-5.1); Sodium 134 mmol/L (136-145); Total Protein 5.4 g/dL (5.7-8.2)
[2024-07-02] MEDS ORDERED: POTASSIUM CHL 10 Meq TABLET PO SCH (10:00)
[2024-07-02] MEDS ORDERED: OMEPRAZOLE 20 MG PO SCH (10:00)
[2024-07-02] MEDS: OMEPRAZOLE 20 MG CAP PO SCH (10:00)
[2024-07-02] MEDS: LEVOTHYROXINE SODIUM 25 MCG TAB PO SCH (10:16)
[2024-07-02] MEDS: TAMSULOSIN HYDROCHLORIDE 0.4 MG CAP PO SCH (10:17)
[2024-07-02] MEDS: MONTELUKAST SODIUM 10 MG TAB PO SCH (10:18)
[2024-07-02] MEDS: FUROSEMIDE 20 MG/2 ML VIAL IV SCH (10:20)
--- NOTE | 2024-07-02 10:43 | DVHPN2 ---
Progress Note Date Seen: Jul 02, 2024 Medical Necessity Reason Pt with a Central, PICC or Fol: No Subjective Patient reports: No new complaints Review of Systems: HEENT:Normal, CVS:Normal, RESPIRATORY:Normal, GI:Normal, :Normal, MSK:Normal, NEURO:Normal Objective vital signs Vital Sign Date Time Temp Pulse Resp B/P (MAP) Pulse Ox O2 Delivery O2 Flow Rate FiO2 07/02/24 10:20 131/76 07/02/24 10:17 114 07/02/24 09:00 98.2 16 95 98.2 07/02/24 06:44 Nasal Cannula 4.0 07/02/24 06:44 36 Total Intake and Output 07/01/24 07/01/24 07/02/24 15:00 23:00 07:00 Intake Total 300 ml 900 ml Output Total 350 ml 250 ml 1040 ml Balance -350 ml 50 ml -140 ml medications Current Medications Medications Dose Ordered Sig/Kalpana Route Start Time Stop Time Status Last Admin Dose Admin Apixaban 2.5 mg BID PO 07/01/24 22:00 07/02/24 10:17 2.5 MG Montelukast Sodium 10 mg DAILY PO 07/02/24 10:00 07/02/24 10:18 10 MG Tamsulosin HCl 0.4 mg DAILY PO 07/02/24 10:00 07/02/24 10:17 0.4 MG Levothyroxine Sodium 75 mcg DAILY PO 07/02/24 10:00 07/02/24 10:16 75 MCG Patient Own Medication 20 mg DAILY PO 07/02/24 10:00 UNV Potassium Chloride 10 meq DAILY PO 07/02/24 10:00 Hold Albuterol 2.5 mg Q4HPRN PRN NEB 07/01/24 11:45 07/02/24 06:44 2.5 MG Ipratropium [place] 0.5 mg Q4HPRN PRN NEB 07/01/24 11:45 Ipratropium [place] 0.5 mg Q6HR NEB 07/01/24 12:00 07/02/24 06:44 0.5 MG Furosemide 10 mg DAILY IV 07/02/24 10:00 07/02/24 10:20 10 MG Doxycycline Monohydrate 100 mg Q12HR PO 07/01/24 22:00 07/02/24 10:17 100 MG Nitroglycerin 0.4 mg Q5MINP PRN SL 07/01/24 11:45 Morphine Sulfate 2 mg Q30M PRN IV 07/01/24 11:45 Methylprednisolone Sodium Succinate 40 mg Q8HR IV 07/01/24 14:00 07/02/24 05:45 40 MG Metoprolol Tartrate 12.5 mg BID PO 07/01/24 22:00 07/02/24 10:17 12.5 MG Omeprazole 20 mg DAILY PO 07/02/24 10:00 Examination: GENERAL:Normal, HEENT:Normal, NECK:Normal, LUNGS:Normal, CVS:Normal, ABDOMEN:Normal, MSK:Normal, MSK:Abnormal (edema++), SKIN:Normal, NEURO:Normal, :Normal laboratory and microbiology Laboratory Tests 07/02/24 04:38 Test 07/02/24 04:38 Range/Units Serum Glucose 123 H 74-106 mg/dL Problem List/Assessment/Plan Problem List/Assessment/Plan #1 acute resp failure: cont oxygen #2 acute systolic/diastolic heart failure: lasix iv #3 copd #4 ckd stage 3 #5 thrombocytopenia: monitor #6 anemia #7 hyperkalemia: monitor advance care planning- full code- time spent 19 mins Plan discussed with: Patient My Orders My Orders Orders - TIARA BAUTISTA MD Procedure Category Date Status Time Furosemide Injection PHA 07/02/24 Verified (Lasix Injection) 10:45 Furosemide Injection PHA 07/03/24 Verified (Lasix Injection) 10:00 Urinalysis LAB 07/02/24 Uncollected 10:36 Basic Metabolic Panel LAB 07/03/24 Verified 06:00 Complete Blood Count LAB 07/03/24 Verified 06:00 Pt Request For Service PT 07/02/24 Verified 10:36 Date of Service: Jul 02, 2024 Billing Provider: TIARA BAUTISTA MD Common Visit Codes: [id number] INP/OBS CARE(HIGH) Secondary Visit Codes: [id number] CARE PLAN 30 MINUTES TIARA BAUTISTA MD Jul 02, 2024 10:43
--- NOTE | 2024-07-02 12:59 | ECG ---
[facility] Test Date: 2024-07-01 Test Time: 02:35:20 Pat Name: MAURO CASTILLO Department: er Room: 0204T A Gender: M Nurse Licensed Practical: : 1935 Requested By: VITALY YUNG Order Number: [id number] Reading MD: Seth Slaughter Measurements Intervals [place] Rate: 108 P: 0 NE: 0 QRS: 28 QRSD: 98 T: 49 QT: 360 QTc: 483 Interpretive Statements Atrial fibrillation Borderline low voltage, extremity leads Borderline prolonged QT interval Electronically Signed On 07-02-2024 21:12:30 PST by Seth Slaughter Please click the below link to view image of tracing.
[2024-07-02] MEDS: DOCUSATE SOD 100 MG CAP PO PRN (13:37)
[2024-07-02] MEDS: FUROSEMIDE 40 MG/4 ML VIAL IV ONE (13:37)
[2024-07-02 15:01] LABS: Urine Bacteria None Seen /hpf (None Seen)
[2024-07-02 15:21] LABS: Urine Blood Negative /uL (Negative); Urine Clarity Clear (Clear); Urine Color Colorless (Yellow); Urine Protein, UAD Negative (Negative); Urine Specific Gravity 1.008 (1.001-1.035); Urine Squamous Epithelial Cell FEW /hpf (<5); Urine Urobilinogen Normal (Negative); Urine WBC < 1 /HPF (0-3)
--- NOTE | 2024-07-02 16:08 | CONS ---
Pharmacy Clinical Information: CQM HF. Patient is currently on metoprolol tartrate for rate control for A-fib; patient's HR is not stable yet. Additionally patient has refused a dose of metoprolol tartrate during this visit therefore compliance may be an issue. Please consider switching to succinate when patient's HR is stabilized. JOSE BARLOW PHARMACIST Jul 02, 2024 16:08
--- NOTE | 2024-07-02 16:42 | DVHPN2 ---
Consult Progress Note Date Seen: Jul 02, 2024 Subjective Review of Systems: CVS:Normal, RESPIRATORY:Normal, NEURO:Normal Objective vital signs Vital Sign Date Time Temp Pulse Resp B/P (MAP) Pulse Ox O2 Delivery O2 Flow Rate FiO2 07/02/24 13:37 115/71 07/02/24 13:00 97.9 64 18 95 97.9 07/02/24 06:44 Nasal Cannula 4.0 07/02/24 06:44 36 Total Intake and Output 07/01/24 07/01/24 07/02/24 15:00 23:00 07:00 Intake Total 300 ml 900 ml Output Total 350 ml 250 ml 1040 ml Balance -350 ml 50 ml -140 ml medications Current Medications Medications Dose Ordered Sig/Kalpana Route Start Time Stop Time Status Last Admin Dose Admin Apixaban 2.5 mg BID PO 07/01/24 22:00 07/02/24 10:17 2.5 MG Montelukast Sodium 10 mg DAILY PO 07/02/24 10:00 07/02/24 10:18 10 MG Tamsulosin HCl 0.4 mg DAILY PO 07/02/24 10:00 07/02/24 10:17 0.4 MG Levothyroxine Sodium 75 mcg DAILY PO 07/02/24 10:00 07/02/24 10:16 75 MCG Patient Own Medication 20 mg DAILY PO 07/02/24 10:00 UNV Albuterol 2.5 mg Q4HPRN PRN NEB 07/01/24 11:45 07/02/24 12:02 2.5 MG Ipratropium [place] 0.5 mg Q4HPRN PRN NEB 07/01/24 11:45 Ipratropium [place] 0.5 mg Q6HR NEB 07/01/24 12:00 07/02/24 12:02 0.5 MG Nitroglycerin 0.4 mg Q5MINP PRN SL 07/01/24 11:45 Morphine Sulfate 2 mg Q30M PRN IV 07/01/24 11:45 Metoprolol Tartrate 12.5 mg BID PO 07/01/24 22:00 07/02/24 10:17 12.5 MG Omeprazole 20 mg DAILY PO 07/02/24 10:00 Furosemide 40 mg DAILY IV 07/03/24 10:00 Docusate Sodium 100 mg BIDPRN PRN PO 07/02/24 13:00 07/02/24 13:37 100 MG Examination: LUNGS:Normal, CVS:Abnormal (BLE edema ++. A-fib controlled rate), NEURO:Normal laboratory and microbiology Laboratory Tests 07/02/24 04:38 Test 07/02/24 04:38 Range/Units Serum Glucose 123 H 74-106 mg/dL Problem List/Assessment/Plan Problem List/Assessment/Plan Acute on chronic decompensated HFrEF, NYHA class III NSTEMI, likely type 2 secondary to above Atrial fibrillation, likely persistent (on Eliquis) Mitral valve regurgitation, moderate to severe degree Moderate to severe aortic root dilatation Acute kidney injury on CKD Thyroid disease Peripheral neuropathy COPD with hx of tobacco use Plan/Recommendation (Dr. Slaughter) * Transthoracic echocardiogram reveals EF 35-40% global hypokinesis * Moderate to severe aortic root dilatation: consider CT aortagram when creatinine improves * Continue guideline directed medical therapy for CHF as renal function permits * Strict I&Os, daily weights, maintain fluid restriction * Preload and afterload reduction as tolerated * DOAC therapy, low-dose Eliquis * [id number] VASc score: 4 points * Rate control, beta-tashia. Transition to succinate * Avoid antiarrhythmic agents, persistent A-fib Thank you for allowing us to care for this patient. Please call with any questions or concerns. Critical care time spent: 43 minutes This medical document was created using an electronic medical record system with voice recognition software and computerized dictation system. Although this document has been carefully reviewed, there might still be some phonetic and typographical errors. Occasional wrong-word or ``sound-alike substitutions may have occurred due to the inherent limitations of voice recognition software. These areas are purely typographical due to imperfections of the software programs and do not reflect any compromise in the patient's medical care. Please read the chart carefully and recognize, using context, where these substitutions have occurred. Plan discussed with: Patient, Other Date of Service: Jul 02, 2024 Billing Provider: LAURA SHETH Cardiology Common Codes: [id number] HOSP CARE(High LAURA SHETH Jul 02, 2024 16:41
[2024-07-03] VITALS (20 sets, daily range): BP systolic 111–123; BP diastolic 59–77; PULSE 60–76; RESP 14–18; TEMP 97.7–98.7; O2SAT 90–100
[2024-07-03 05:37] LABS: Basophils # (auto) 0 10 ^3/uL (0-0.2); Eosinophils # (auto) 0 10 ^3/uL (0-0.8); Hematocrit 33.2 % (41.0-53.0); Hemoglobin 11.1 g/dL (13.5-17.5); Lymphocytes # (auto) 0.4 10 ^3/uL (0.4-5.4); Lymphocytes % (auto) 8.5 % (10.0-50.0); Mean Corpuscular Hemoglobin 31.4 pg (28.0-32.0); Mean Corpuscular Hgb Conc. 33.4 g/dL (32.0-36.0); Monocytes # (auto) 0.3 10 ^3/uL (0-1.3); Monocytes % (auto) 6.3 % (0.0-12.0); Neutrophils # (auto) 3.7 10 ^3/uL (1.6-8.6); Neutrophils % (auto) 85.2 % (37.0-80.0); Platelet Count (auto) 129 10^3/uL (140-450); Red Blood Cells 3.53 10^6/uL (4.5-5.90); Red Cell Distribution Width 16.9 % (11.8-14.3); White Blood Cell 4.4 10^3/uL (4.4-10.8)
[2024-07-03 05:49] LABS: Chloride 99 mmol/L (98-107); Potassium 4.9 mmol/L (3.5-5.1)
[2024-07-03 05:50] LABS: Anion Gap 5 (5-15); Carbon Dioxide 30 mmol/L (20-31)
[2024-07-03 05:55] LABS: BUN/Creatinine Ratio 24.1 (10.0-20.0); Glucose 95 mg/dL (74-106)
[2024-07-03 06:22] LABS: Blood Urea Nitrogen 35 mg/dL (9-23); Calcium 8.6 mg/dL (8.7-10.4); Sodium 134 mmol/L (136-145)
--- NOTE | 2024-07-03 08:41 | DVHPN2 ---
Consult Progress Note Date Seen: Jul 03, 2024 Subjective Review of Systems: CVS:Normal, RESPIRATORY:Normal, GI:Abnormal, NEURO:Normal Other Systems: C/o abd pain/constipation, reports last BM 5 days ago Objective vital signs Vital Sign Date Time Temp Pulse Resp B/P (MAP) Pulse Ox O2 Delivery O2 Flow Rate FiO2 07/03/24 06:51 69 16 100 07/03/24 06:44 Nasal Cannula 2.0 07/03/24 06:44 28 07/03/24 05:00 98.4 119/74 (89) 98.4 Total Intake and Output 07/02/24 07/02/24 07/03/24 15:00 23:00 07:00 Intake Total 524 ml 924 ml 500 ml Output Total 1450 ml 800 ml Balance 524 ml -526 ml -300 ml medications Current Medications Medications Dose Ordered Sig/Kalpana Route Start Time Stop Time Status Last Admin Dose Admin Apixaban 2.5 mg BID PO 07/01/24 22:00 07/02/24 21:25 2.5 MG Montelukast Sodium 10 mg DAILY PO 07/02/24 10:00 07/02/24 10:18 10 MG Tamsulosin HCl 0.4 mg DAILY PO 07/02/24 10:00 07/02/24 10:17 0.4 MG Levothyroxine Sodium 75 mcg DAILY PO 07/02/24 10:00 07/02/24 10:16 75 MCG Patient Own Medication 20 mg DAILY PO 07/02/24 10:00 UNV Albuterol 2.5 mg Q4HPRN PRN NEB 07/01/24 11:45 07/02/24 12:02 2.5 MG Ipratropium [place] 0.5 mg Q4HPRN PRN NEB 07/01/24 11:45 Ipratropium [place] 0.5 mg Q6HR NEB 07/01/24 12:00 07/03/24 06:44 0.5 MG Nitroglycerin 0.4 mg Q5MINP PRN SL 07/01/24 11:45 Morphine Sulfate 2 mg Q30M PRN IV 07/01/24 11:45 Omeprazole 20 mg DAILY PO 07/02/24 10:00 Furosemide 40 mg DAILY IV 07/03/24 10:00 Docusate Sodium 100 mg BIDPRN PRN PO 07/02/24 13:00 07/03/24 07:44 100 MG Metoprolol Succinate 25 mg DAILY PO 07/03/24 10:00 Examination: LUNGS:Normal, CVS:Abnormal (A-fib controlled rate. BLE edema ++, improving), NEURO:Normal laboratory and microbiology Laboratory Tests 07/03/24 04:51 Test 07/03/24 04:51 Range/Units Serum Glucose 95 74-106 mg/dL Problem List/Assessment/Plan Problem List/Assessment/Plan Acute on chronic decompensated HFrEF, NYHA class III NSTEMI, likely type 2 secondary to above Atrial fibrillation, likely persistent (on Eliquis) Mitral valve regurgitation, moderate to severe degree Moderate to severe aortic root dilatation Acute kidney injury on CKD Thyroid disease Peripheral neuropathy COPD with hx of tobacco use Plan/Recommendation (Dr. Slaughter) * Transthoracic echocardiogram reveals EF 35-40% global hypokinesis * Moderate to severe aortic root dilatation: consider CT aortagram when creatinine improves * Continue guideline directed medical therapy for CHF as renal function permits * Strict I&Os, daily weights, maintain fluid restriction * Preload and afterload reduction as tolerated * DOAC therapy, low-dose Eliquis * [id number] VASc score: 4 points * Rate control, beta-tashia. Transition to succinate * Avoid antiarrhythmic agents, persistent A-fib * Lactulose for constipation Thank you for allowing us to care for this patient. Please call with any questions or concerns. This medical document was created using an electronic medical record system with voice recognition software and computerized dictation system. Although this document has been carefully reviewed, there might still be some phonetic and typographical errors. Occasional wrong-word or ``sound-alike substitutions may have occurred due to the inherent limitations of voice recognition software. These areas are purely typographical due to imperfections of the software programs and do not reflect any compromise in the patient's medical care. Please read the chart carefully and recognize, using context, where these substitutions have occurred. Plan discussed with: Patient, Other Date of Service: Jul 03, 2024 Billing Provider: LAURA SHETH Cardiology Common Codes: [id number] [facility] LAURA SHETH Jul 03, 2024 08:41
[2024-07-03] MEDS: LACTULOSE 20Gm/30ML SOLN PO ONE (08:53)
--- NOTE | 2024-07-03 10:13 | DVHPN2 ---
Progress Note Date Seen: Jul 03, 2024 Medical Necessity Reason Pt with a Central, PICC or Fol: No Subjective Patient reports: No new complaints Review of Systems: HEENT:Normal, CVS:Normal, RESPIRATORY:Normal, GI:Normal, :Normal, MSK:Normal, NEURO:Normal Objective vital signs Vital Sign Date Time Temp Pulse Resp B/P (MAP) Pulse Ox O2 Delivery O2 Flow Rate FiO2 07/03/24 09:23 97.8 69 18 119/75 (90) 93 97.8 07/03/24 06:44 Nasal Cannula 2.0 07/03/24 06:44 28 Total Intake and Output 07/02/24 07/02/24 07/03/24 15:00 23:00 07:00 Intake Total 524 ml 924 ml 500 ml Output Total 1450 ml 800 ml Balance 524 ml -526 ml -300 ml medications Current Medications Medications Dose Ordered Sig/Kalpana Route Start Time Stop Time Status Last Admin Dose Admin Apixaban 2.5 mg BID PO 07/01/24 22:00 07/02/24 21:25 2.5 MG Montelukast Sodium 10 mg DAILY PO 07/02/24 10:00 07/02/24 10:18 10 MG Tamsulosin HCl 0.4 mg DAILY PO 07/02/24 10:00 07/02/24 10:17 0.4 MG Levothyroxine Sodium 75 mcg DAILY PO 07/02/24 10:00 07/02/24 10:16 75 MCG Patient Own Medication 20 mg DAILY PO 07/02/24 10:00 UNV Albuterol 2.5 mg Q4HPRN PRN NEB 07/01/24 11:45 07/02/24 12:02 2.5 MG Ipratropium [place] 0.5 mg Q4HPRN PRN NEB 07/01/24 11:45 Ipratropium [place] 0.5 mg Q6HR NEB 07/01/24 12:00 07/03/24 06:44 0.5 MG Nitroglycerin 0.4 mg Q5MINP PRN SL 07/01/24 11:45 Morphine Sulfate 2 mg Q30M PRN IV 07/01/24 11:45 Omeprazole 20 mg DAILY PO 07/02/24 10:00 Furosemide 40 mg DAILY IV 07/03/24 10:00 Docusate Sodium 100 mg BIDPRN PRN PO 07/02/24 13:00 07/03/24 07:44 100 MG Metoprolol Succinate 25 mg DAILY PO 07/03/24 10:00 Examination: GENERAL:Normal, HEENT:Normal, NECK:Normal, LUNGS:Normal, LUNGS:Abnormal (on oxygen), CVS:Normal, ABDOMEN:Normal, MSK:Normal, MSK:Abnormal (edema++), SKIN:Normal, NEURO:Normal, :Normal laboratory and microbiology Laboratory Tests 07/03/24 04:51 Test 07/03/24 04:51 Range/Units Serum Glucose 95 74-106 mg/dL Microbiology Date/Time Source Procedure Growth Status 07/01/24 16:55 Nose MRSA Screen - Final Methicillin Resistant S.aureus Complete 07/01/24 13:03 Blood Blood Culture - Preliminary NO GROWTH AFTER 24 HOURS OF INCUBATION. Resulted 07/01/24 12:41 Sputum Gram Stain - Final Resulted 07/01/24 12:41 Sputum Respiratory Culture - Preliminary Resulted Problem List/Assessment/Plan Problem List/Assessment/Plan #1 acute resp failure: cont oxygen #2 acute systolic/diastolic heart failure: lasix iv #3 copd #4 ckd stage 3 #5 thrombocytopenia: monitor #6 anemia #7 hyperkalemia: monitor #8 fecal impaction: enema, miralax advance care planning- full code- time spent 19 mins Plan discussed with: Patient My Orders My Orders Orders - TIARA BAUTISTA MD Procedure Category Date Status Time Furosemide Injection PHA 07/03/24 In Process (Lasix Injection) 10:00 Pt Request For Service PT 07/02/24 Logged 10:36 Docusate Sodium PHA 07/02/24 In Process Capsule (Colace 13:00 Urine Bacterial SHABNAM 07/02/24 In Process Culture 15:33 Date of Service: Jul 03, 2024 Billing Provider: TIARA BAUTISTA MD Common Visit Codes: [id number] INP/OBS CARE(HIGH) TIARA BAUTISTA MD Jul 03, 2024 10:13
[2024-07-03] MEDS: FUROSEMIDE 40 MG/4 ML VIAL IV SCH (10:33)
[2024-07-03] MEDS: METOPROLOL SUCCINATE XL 50 MG TAB PO SCH (10:33)
[2024-07-03] MEDS: POLYETHYLENE GLYCOL 17 GM PWDR PO ONE (10:50)
[2024-07-03] MEDS: MUPIROCIN 2% OINT 15gm or 22gm TOP ONE (16:56)
[2024-07-03] MEDS: LACTULOSE 20Gm/30ML SOLN PO SCH (17:48)
[2024-07-03] MEDS: DOCUSATE SOD 100 MG CAP PO SCH (21:41)
[2024-07-03] MEDS: MUPIROCIN 2% OINT 15gm or 22gm FOR MRSA NARES EACHNOSTRI SCH (21:42)
[2024-07-04] VITALS (13 sets, daily range): BP systolic 118–146; BP diastolic 54–77; PULSE 18–99; RESP 18–99; TEMP 98.1–98.3; O2SAT 91–100
[2024-07-04 07:29] LABS: Anion Gap 6 (5-15); Calcium 9.1 mg/dL (8.7-10.4)
[2024-07-04 07:35] LABS: BUN/Creatinine Ratio 21.7 (10.0-20.0); Glucose 85 mg/dL (74-106)
[2024-07-04 07:51] LABS: Blood Urea Nitrogen 33 mg/dL (9-23); Carbon Dioxide 35 mmol/L (20-31); Chloride 94 mmol/L (98-107); Sodium 135 mmol/L (136-145)
--- NOTE | 2024-07-04 11:25 | DVHDS2 ---
Discharge Summary Date of Admission Jul 01, 2024 at 11:44 Date of Discharge: Jul 04, 2024 Labs/Diagnostic Data: Laboratory Results Test 07/04/24 06:57 07/03/24 04:51 07/02/24 14:11 07/02/24 04:38 Sodium Level 135 mmol/L (136-145) Potassium Level 5.0 mmol/L (3.5-5.1) Chloride Level 94 mmol/L (98-107) Carbon Dioxide Level 35 mmol/L (20-31) Anion Gap 6 (5-15) Blood Urea Nitrogen 33 mg/dL (9-23) Creatinine 1.52 mg/dL (0.700-1.30) Glomerular Filtration Rate Calc 44 mL/min (>90) BUN/Creatinine Ratio 21.7 (10.0-20.0) Serum Glucose 85 mg/dL (74-106) Calcium Level 9.1 mg/dL (8.7-10.4) White Blood Count 4.4 10^3/uL (4.4-10.8) Red Blood Count 3.53 10^6/uL (4.5-5.90) Hemoglobin 11.1 g/dL (13.5-17.5) Hematocrit 33.2 % (41.0-53.0) Mean Corpuscular Volume 94.0 fL (80.0-100.0) Mean Corpuscular Hemoglobin 31.4 pg (28.0-32.0) Mean Corpuscular Hemoglobin Concent 33.4 g/dL (32.0-36.0) Red Cell Distribution Width 16.9 % (11.8-14.3) Platelet Count 129 10^3/uL (140-450) Mean Platelet Volume 8.7 fL (6.9-10.8) Neutrophils (%) (Auto) 85.2 % (37.0-80.0) Lymphocytes (%) (Auto) 8.5 % (10.0-50.0) Monocytes (%) (Auto) 6.3 % (0.0-12.0) Eosinophils (%) (Auto) 0.0 % (0.0-7.0) Basophils (%) (Auto) 0.0 % (0.0-2.0) Neutrophils # (Auto) 3.7 10 ^3/uL (1.6-8.6) Lymphocytes # (Auto) 0.4 10 ^3/uL (0.4-5.4) Monocytes # (Auto) 0.3 10 ^3/uL (0-1.3) Eosinophils # (Auto) 0 10 ^3/uL (0-0.8) Basophils # (Auto) 0 10 ^3/uL (0-0.2) Nucleated Red Blood Cells 0.0 % Urine Color Colorless (Yellow) Urine Clarity Clear (Clear) Urine pH 5.0 (5.0-9.0) Urine Specific [place] 1.008 (1.001-1.035) Urine Protein Negative (Negative) Urine Ketones Negative (Negative) Urine Blood Negative /uL (Negative) Urine Nitrite Negative (Negative) Urine Bilirubin Negative (Negative) Urine Urobilinogen Normal mg/dL (Negative) Urine Leukocyte Esterase 1+ /uL (Negative) Urine RBC <1 /hpf (0 - 3) Urine Microscopic WBC < 1 /HPF (0-3) Urine Squamous Epithelial Cells Few /hpf (<5) Urine Bacteria None seen /hpf (None Seen) Urine Glucose Normal mg/dL (Normal) Hemoglobin A1c 5.2 % A1C (<5.7) Magnesium Level 2.2 mg/dL (1.6-2.6) Total Bilirubin 0.5 mg/dL (0.2-1.0) Aspartate Amino Transferase (AST) 15 U/L (13-40) Alanine Aminotransferase (ALT) 19 U/L (7-40) Alkaline Phosphatase 50 U/L (46-116) B-Type Natriuretic Peptide 401.48 pg/mL (0-100) Total Protein 5.4 g/dL (5.7-8.2) Albumin 3.6 g/dL (3.2-4.8) Triglycerides Level 72 mg/dL (< 150) Cholesterol Level 111 mg/dL (< 200) LDL Cholesterol 30 mg/dL (< 100) HDL Cholesterol 65 mg/dL (40-59) Test 07/01/24 17:00 07/01/24 11:57 07/01/24 03:05 07/01/24 02:56 SARS-CoV-2 Antigen (Rapid) Negative (NEGATIVE) Troponin I High Sensitivity 61 ng/L (</=54) Thyroid Stimulating Hormone (TSH) 2.67 uIU/mL (0.55-4.78) Prothrombin Time 12.4 sec (9.3-11.8) Prothrombin Time INR 1.19 (0.9-1.15) Activated Partial Thromboplast Time 27.8 SEC (24.5-34.5) Blood Gas Specimen Type Arterial Blood Gas Sample Site Left brachial Blood Gas Patient Temperature 37.0 Arterial Blood Date Drawn [id number] Arterial Blood pH 7.370 (7.350-7.450) Arterial Blood Partial Pressure CO2 42.0 mmHg (35.0-48.0) Arterial Blood Partial Pressure O2 177.2 mmHg (83.0-108.0) Arterial Blood HCO3 23.7 mmol/L (21.0-28.0) Arterial Blood Oxygen Saturation 96.2 % (94.0-98.0) Arterial Blood Base Excess -1.5 mmol/L (-2.0-3.0) Arterial Blood Oxyhemoglobin 95.7 % (94.0-98.0) Arterial Blood Carboxyhemoglobin 0.2 % (0.5-1.5) Arterial Blood Methemoglobin 0.3 % (0.0-1.5) Apollo Test N/a Blood Gas Total Hemoglobin 11.00 g/dL (13.5-17.5) Blood Gas Set Respiration Rate 12.0 Blood Gas Modality Mask - bipap Blood Gas Spontaneous Rate 36 FiO2 % 50.0 Blood Gas EPAP 5 Blood Gas IPAP 12 Other Laboratory Tests 07/04/24 06:57 07/03/24 04:51 Brief Hx & Hospital Course: SEE DICTATED NOTE Condition at Discharge: Fair Final Diagnosis/Problems List CHF PNEUMONIA Discharge Disposition: Acute Care Facility Discharge Instruct/Medications Diet: Cardiac 2g Na,low cholest Activity: No Restrictions, As Tolerated Follow Up/Referral: FU WITH [facility] Medications: PER JUL Discharge Statement: "Patient was advised to return to the ER or call 911 if any headaches, dizziness, shortness of breath, chest pain, abdominal pain, bleeding, fevers, or worsening of medical condition. Patient was counseled about treatment plan, medications, possible side effects, patientverbalized understanding. All questions were answered to the best of my ability. This discharge took greater then 30 minutes in planning, reviewing documentation, counseling the patient, and discussing with other team members." ASSESSMENT ASSESSMENT Assessment CHF PNEUMONIA Date of Service: Jul 04, 2024 Billing Provider: TIARA BAUTISTA MD Common Visit Codes: [id number] DISCH DAY >30min TIARA BAUTISTA MD Jul 04, 2024 11:25
--- NOTE | 2024-07-04 12:32 | DVHDS ---
DATE OF DISCHARGE: 07/04/2024 TRANSFER SUMMARY DATE OF TRANSFER: 07/04/2024 HISTORY OF PRESENT ILLNESS: The patient is an 89-year-old gentleman who was admitted with shortness of breath and was recently discharged. The patient has history of atrial fibrillation, CHF, COPD, chronic respiratory failure. HOSPITAL COURSE: The patient had a chest x-ray that showed eventration of the left diaphragm. The patient had sputum cultures that grew Pseudomonas aeruginosa, sensitive to Zosyn. The patient was in congestive heart failure and was placed on intravenous diuretics. Creatinine remained at about 1.5. The patient's platelets were 117. Echocardiogram done showed ejection fraction of 35-40%. He had global hypokinesis. The patient will now be transferred to [place] for further management with medications as per medication reconciliation. FINAL DIAGNOSES: Therefore, * Acute on chronic respiratory failure. * Acute on chronic systolic/diastolic heart failure. * Pneumonia secondary to Pseudomonas aeruginosa. * Chronic obstructive pulmonary disease. * Chronic kidney disease, stage 3. * Thrombocytopenia. * Anemia. * Status post hyperkalemia. * Fecal impaction. Time spent in discharge planning and review of plan with patient, nursing and paperwork was 39 minutes. MD MECHE Vallejo/JORGE TID: [id number] RECEIPT: [id number]
--- NOTE | 2024-07-04 13:40 | DVHPN2 ---
Consult Progress Note Date Seen: Jul 04, 2024 Subjective Review of Systems: CVS:Normal, RESPIRATORY:Normal, NEURO:Normal Objective vital signs Vital Sign Date Time Temp Pulse Resp B/P (MAP) Pulse Ox O2 Delivery O2 Flow Rate FiO2 07/04/24 13:00 98.2 70 20 134/64 (87) 91 98.2 07/04/24 11:24 Room Air* 0 21 Total Intake and Output 07/03/24 07/03/24 07/04/24 15:00 23:00 07:00 Intake Total 650 ml 1000 ml 800 ml Output Total 926 ml 650 ml Balance 650 ml 74 ml 150 ml medications Current Medications Medications Dose Ordered Sig/[place] Route Start Time Stop Time Status Last Admin Dose Admin Apixaban 2.5 mg BID PO 07/01/24 22:00 07/04/24 08:38 2.5 MG Montelukast Sodium 10 mg DAILY PO 07/02/24 10:00 07/04/24 08:38 10 MG Tamsulosin HCl 0.4 mg DAILY PO 07/02/24 10:00 07/04/24 08:37 0.4 MG Levothyroxine Sodium 75 mcg DAILY PO 07/02/24 10:00 07/04/24 08:38 75 MCG Patient Own Medication 20 mg DAILY PO 07/02/24 10:00 UNV Albuterol 2.5 mg Q4HPRN PRN NEB 07/01/24 11:45 07/03/24 23:16 2.5 MG Ipratropium [place] 0.5 mg Q4HPRN PRN NEB 07/01/24 11:45 Ipratropium [place] 0.5 mg Q6HR NEB 07/01/24 12:00 07/04/24 11:24 0.5 MG Nitroglycerin 0.4 mg Q5MINP PRN SL 07/01/24 11:45 Morphine Sulfate 2 mg Q30M PRN IV 07/01/24 11:45 Omeprazole 20 mg DAILY PO 07/02/24 10:00 07/03/24 10:34 20 MG Furosemide 40 mg DAILY IV 07/03/24 10:00 07/04/24 08:43 40 MG Docusate Sodium 100 mg BIDPRN PRN PO 07/02/24 13:00 07/03/24 07:44 100 MG Metoprolol Succinate 25 mg DAILY PO 07/03/24 10:00 07/04/24 08:44 25 MG Docusate Sodium 100 mg BID PO 07/03/24 22:00 07/04/24 08:37 100 MG Mupirocin 1 applic BID EACHNOSTRI 07/03/24 22:00 07/08/24 21:59 Lactulose 30 ml Q6HR PO 07/03/24 17:21 07/04/24 12:29 30 ML Piperacillin Sod/ Tazobactam Sod 100 ml @ 25 mls/hr Q8H IV 07/04/24 22:00 Examination: LUNGS:Normal, CVS:Abnormal (BLE edema +, improved significantly), NEURO:Normal laboratory and microbiology Laboratory Tests 07/04/24 06:57 07/03/24 04:51 Test 07/04/24 06:57 Range/Units Serum Glucose 85 74-106 mg/dL Problem List/Assessment/Plan Problem List/Assessment/Plan Acute on chronic decompensated HFrEF, NYHA class III NSTEMI, likely type 2 secondary to above Atrial fibrillation, likely persistent (on Eliquis) Mitral valve regurgitation, moderate to severe degree Moderate to severe aortic root dilatation Acute kidney injury on CKD Thyroid disease Peripheral neuropathy COPD with hx of tobacco use Plan/Recommendation (Dr. Slaughter) * Transthoracic echocardiogram reveals EF 35-40% global hypokinesis * Moderate to severe aortic root dilatation: consider CT aortagram when creatinine improves * Continue guideline directed medical therapy for CHF as renal function permits * Strict I&Os, daily weights, maintain fluid restriction * Preload and afterload reduction as tolerated * DOAC therapy, low-dose Eliquis * [id number] VASc score: 4 points * Rate control, beta-tashia * Avoid antiarrhythmic agents, persistent A-fib Cardiac stable. Agree with transfer to [facility]. Kindly call if in need to re-consult. Thank you for allowing us to care for this patient. This medical document was created using an electronic medical record system with voice recognition software and computerized dictation system. Although this document has been carefully reviewed, there might still be some phonetic and typographical errors. Occasional wrong-word or ``sound-alike substitutions may have occurred due to the inherent limitations of voice recognition software. These areas are purely typographical due to imperfections of the software programs and do not reflect any compromise in the patient's medical care. Please read the chart carefully and recognize, using context, where these substitutions have occurred. Plan discussed with: Patient, Other Date of Service: Jul 04, 2024 Billing Provider: LAURA SHETH Cardiology Common Codes: [id number] INP/OBS CARE(Mod) LAURA SHETH Jul 04, 2024 13:40
[2024-07-04] MEDS: PIPERACILLIN-TAZOB 3.375GM 100 ML IV ONE (14:48)
[2024-07-04] MEDS ORDERED: PIPERACILLIN-TAZOB 3.375GM 100 ML IV SCH (22:00)
== END 2024-07-04 21:10 | disposition short-term general hospital (02) | DRG 280 ==
LOC: ER 02:28 → EDBD 02:28 → TELE 11:44 → MERGE 11:44 → TELE-CENTR 12:16 → TELE-WESTW 07-03 16:15
PROVIDERS: ADMIT Registered Nurse; ATTEND Internal Medicine
PROC: 5A09357 Assistance with Respiratory Ventilation, Less than 24 Consecutive Hours, Continuous Positive Airway Pressure (ICD-10-PCS; principal; 2024-07-01)
DX: I13.0 Hypertensive heart and chronic kidney disease with heart failure and stage 1 through stage 4 chronic kidney disease, or unspecified chronic kidney disease (principal); I50.43 Acute on chronic combined systolic (congestive) and diastolic (congestive) heart failure; I21.A1 Myocardial infarction type 2; J15.1 Pneumonia due to Pseudomonas; J96.20 Acute and chronic respiratory failure, unspecified whether with hypoxia or hypercapnia; J44.1 Chronic obstructive pulmonary disease with (acute) exacerbation; N17.9 Acute kidney failure, unspecified; I48.19 Other persistent atrial fibrillation; J44.0 Chronic obstructive pulmonary disease with (acute) lower respiratory infection; Z20.822 Contact with and (suspected) exposure to COVID-19; N18.32 Chronic kidney disease, stage 3b; G62.9 Polyneuropathy, unspecified; I77.810 Thoracic aortic ectasia; E07.9 Disorder of thyroid, unspecified; K56.41 Fecal impaction; D64.9 Anemia, unspecified; D69.6 Thrombocytopenia, unspecified; N40.0 Benign prostatic hyperplasia without lower urinary tract symptoms; Z96.653 Presence of artificial knee joint, bilateral; K21.9 Gastro-esophageal reflux disease without esophagitis; I34.0 Nonrheumatic mitral (valve) insufficiency; E87.5 Hyperkalemia; Z79.01 Long term (current) use of anticoagulants; Z87.891 Personal history of nicotine dependence; Z99.81 Dependence on supplemental oxygen
CPT/HCPCS: 36415; 36600; 71045; 80048; 80053; 80061; 81001; 82805; 83036; 83735; 83880; 84443; 84484; 85025; 85610; 85730; 87040; 87070; 87077; 87081; 87086; 87186; 87205; 87426; 93005; 93306; 94640; 94660; 97110; 97116; 97163; 99291; G0378; J2543

== ENCOUNTER 2024-07-18 18:50 | Emergency (ER) | payer OTHER ==
[~2024-07-18] VITALS: Ht 175.3 cm; Wt 81.0 kg
[~2024-07-18 18:50] MED LIST changes: +APIX5TAB PO; +FURO1TAB33 PO; +LEVO75TA6 PO; +MONT-8 PO; +OMEP-420 PO; +POTA-215 PO; +TAMS0.4C39 PO
--- NOTE | 2024-07-18 19:11 | ECG ---
[facility] Test Date: 2024-07-18 Test Time: 19:04:50 Pat Name: MAURO CASTILLO Department: ED Room: Gender: M Flat Clothier: JAVAN : 1935 Requested By: NRIU MONTELONGO Order Number: [id number] Reading MD: Seth Slaughter Measurements Intervals [place] Rate: 77 P: 0 WI: 0 QRS: 0 QRSD: 104 T: 36 QT: 404 QTc: 458 Interpretive Statements Atrial fibrillation Electronically Signed On 07-19-2024 22:24:22 PST by Seth Slaughter Please click the below link to view image of tracing.
--- NOTE | 2024-07-18 19:25 | ED.PDOC ---
SOB-HPI HPI Comments 89 year old male brought in by EMS presents to the ED with a chief complaint of shortness of breath onset April 2024. Per EMS, patient was diagnosed with Pneumonia in April 2024 and since then cough and shortness of breath has not improved. Patient called EMS 2 days ago, was given a breathing treated, noticed relief and was not taken to an ED. Today upon ED arrival patient was on 2L O2 with sat of 91% was placed on nonbreather and O2 Sat improved. Patient states his cough with green/yellow phlegm has worsened. He used his inhaler today with no improvement. PMHx CHF, COPD, Afib. Denies nausea, vomiting, diarrhea, headache, dizziness, chest pain. No other symptoms or modifying factors present at this time. Chief Complaint: Shortness of Breath Time Seen by MD: 19:06 Primary Care Provider: SILVA Mcdaniel notes: Medications, Allergies Information Source: Patient, Emergency Med Personnel Mode of Arrival: EMS Severity: Moderate Timing: Months Duration: Since onset Context: At Rest History of: COPD, CHF Prehospital treatment: Breathing Tx, Oxygen Associated Signs and Symptoms: Cough Radiation: No Radiation If cough with SOB: Productive, Yellow, Green Past Medical History PAST MEDICAL HISTORY: AFIB, CHF, COPD, Thyroid Surgical History: Appendectomy Family History Family History: Reviewed,noncontributory to illness, Unknown Social History Smoker: Quit Greater Than 1 Year, Cigarettes Alcohol: Denies ETOH Use Drugs: Denies Drug Use Lives In: Home Constitutional: denies: chills, diaphoresis, fatigue, fever, malaise, sweats, weakness, others EENTM: denies: blurred vision, double vision, ear bleeding, ear discharge, ear drainage, ear pain, ear ringing, eye pain, eye redness, hearing loss, mouth pain, mouth swelling, nasal discharge, nose bleeding, nose congestion, nose pain, photophobia, tearing, throat pain, throat swelling, voice changes, others Respiratory: reports: cough, shortness of breath; denies: hemoptysis, orthopnea, SOB at rest, SOB with excertion, stridor, wheezing, others Cardiovascular: denies: chest pain, dizzy spells, diaphoresis, Dyspnea on exertion, edema, irregular heart beat, left arm pain, lightheadedness, palpitations, PND, syncope, others Gastrointestinal: denies: abdomen distended, abdominal pain, blood streaked bowels, constipated, diarrhea, dysphagia, difficulty swallowing, hematemesis, melena, nausea, poor appetite, poor fluid intake, rectal bleeding, rectal pain, vomiting, others Genitourinary: denies: burning, dysuria, flank pain, frequency, hematuria, incontinence, penile discharge, penile sore, pain, testicle pain, testicle swelling, urgency, others Neurological: denies: dizziness, fainting, headache, left sided numbness, left sided weakness, numbness, paresthesia, pre-existing deficit, right sided numbness, right sided weakness, seizure, speech problems, tingling, tremors, weakness, others Musculoskeletal: denies: back pain, gout, joint pain, joint swelling, muscle pain, muscle stiffness, neck pain, others Integumetry: denies: bruises, change in color, change in hair/nails, dryness, laceration, lesions, lumps, rash, wounds, others Allergic/Immunocompromised: denies: Difficulty Healing, Frequent Infections, Hives, Itching, others Hematologic/Lymphatic: denies: anemia, blood clots, easy bleeding, easy bruising, swollen glands, others Endocrine: denies: excessive hunger, excessive sweating, excessive thirst, excessive urination, flushing, intolerance to cold, intolerance to heat, unexp lained weight gain, unexplained weight loss, others Psychiatric: denies: anxiety, bipolar disorder, depression, hopeless, panic disorder, schizophrenia, sleepless, suicidal, others All Other Systems: Reviewed and Negative Physical Exam General Appearance: No Apparent Distress, Normal HEENT: Normal ENT Inspection, Pharynx Normal, TMs Normal Neck: Full Range of Motion, Non-Tender, Normal, Normal Inspection Respiratory: Chest Non-Tender, Lungs Clear, No Accessory Muscle Use, No Respiratory Distress, Normal Breath Sounds Cardiovascular: No Edema, No JVD, No Murmur, No Gallop, Normal Peripheral Pulse s, Regular Rate/Rhythm Breast Exam: Deferred Gastrointestinal: No Organomegaly, Non Tender, No Pulsatile Mass, Normal Bowel Sounds, Soft Genitalia: Deferred Pelvic: Deferred Rectal: Deferred Extremities: No calf tenderness, Normal capillary refill, Normal inspection, Normal range of motion, Non-tender, No pedal edema Musculoskeletal : Apperance: Normal Neurologic: Alert, medical radiation therapist II-XII nml as Tested, No Motor Deficits, Normal Affect, Normal Mood, No Sensory Deficits Cerebellar Function: Normal Reflexes: Normal Skin: Dry, Normal Color, Warm Lymphatic: No Adenopathy Was a procedure done? Was a procedure done?: No Differential Dx Differential Diagnosis: Asthma, CHF, COPD, Pneumonia, Respiratory Distress, URI X-Ray, Labs, Meds, VS Vital Signs Date Time Temp Pulse Resp B/P (MAP) Pulse Ox O2 Delivery O2 Flow Rate FiO2 07/19/24 01:35 98.4 71 14 118/58 (78) 92 98.4 07/19/24 00:36 68 15 97 Nasal Cannula* 3 32 07/19/24 00:34 73 16 123/66 (85) 99 07/19/24 00:00 112/69 07/19/24 00:00 86 07/18/24 22:00 67 20 121/52 (75) 99 07/18/24 20:00 68 07/18/24 20:00 73 120/49 (72) 100 07/18/24 19:06 77 07/18/24 19:00 98.2 72 20 126/82 (97) 100 07/18/24 18:59 20 100 Non-Rebreather 15 N/A Lab Test 07/19/24 01:00 07/18/24 23:05 07/18/24 21:30 07/18/24 20:27 Range/Units Lactic Acid Level 2.6 *H 2.9 *H 0.4-2.0 mmol/L Urine Color Light-yellow Yellow Urine Clarity Clear Clear Urine pH 5.0 5.0-9.0 Urine Specific [place] 1.012 1.001-1.035 Urine Protein Negative Negative Urine Ketones Negative Negative Urine Blood Negative Negative /uL Urine Nitrite Negative Negative Urine Bilirubin Negative Negative Urine Urobilinogen Normal Negative mg/dL Urine Leukocyte Esterase Negative Negative /uL Urine RBC <1 0 - 3 /hpf Urine Microscopic WBC 0-3 /HPF Urine Squamous Epithelial Cells None seen <5 /hpf Urine Bacteria None seen None Seen /hpf Urine Glucose Normal Normal mg/dL Troponin I High Sensitivity 47 </=54 ng/L Test 07/18/24 19:28 Range/Units White Blood Count 6.1 4.4-10.8 10^3/uL Red Blood Count 3.75 L 4.5-5.90 10^6/uL Hemoglobin 11.3 L 13.5-17.5 g/dL Hematocrit 35.5 L 41.0-53.0 % Mean Corpuscular Volume 94.6 80.0-100.0 fL Mean Corpuscular Hemoglobin 30.0 28.0-32.0 pg Mean Corpuscular Hemoglobin Concent 31.7 L 32.0-36.0 g/dL Red Cell Distribution Width 17.5 H 11.8-14.3 % Platelet Count 170 140-450 10^3/uL Mean Platelet Volume 8.1 6.9-10.8 fL Neutrophils (%) (Auto) 84.0 H 37.0-80.0 % Lymphocytes (%) (Auto) 9.6 L 10.0-50.0 % Monocytes (%) (Auto) 5.1 0.0-12.0 % Eosinophils (%) (Auto) 0.9 0.0-7.0 % Basophils (%) (Auto) 0.4 0.0-2.0 % Neutrophils # (Auto) 5.1 1.6-8.6 10 ^3/uL Lymphocytes # (Auto) 0.6 0.4-5.4 10 ^3/uL Monocytes # (Auto) 0.3 0-1.3 10 ^3/uL Eosinophils # (Auto) 0.1 0-0.8 10 ^3/uL Basophils # (Auto) 0 0-0.2 10 ^3/uL Nucleated Red Blood Cells 0.0 % Sodium Level 142 136-145 mmol/L Potassium Level 4.5 3.5-5.1 mmol/L Chloride Level 108 H 98-107 mmol/L Carbon Dioxide Level 24 20-31 mmol/L Anion Gap 10 5-15 Blood Urea Nitrogen 43 H 9-23 mg/dL Creatinine 2.25 H 0.700-1.30 mg/dL Glomerular Filtration Rate Calc 28 >90 mL/min BUN/Creatinine Ratio 19.1 10.0-20.0 Serum Glucose 95 74-106 mg/dL Calcium Level 8.6 L 8.7-10.4 mg/dL Troponin I High Sensitivity 44 </=54 ng/L B-Type Natriuretic Peptide 203.65 0-100 pg/mL Microbiology Date/Time Source Procedure Growth Status 07/18/24 23:05 Blood Blood Culture - Preliminary NO GROWTH AFTER 72 HOURS OF INCUBATION. Resulted 07/18/24 22:53 Blood Blood Culture - Preliminary NO GROWTH AFTER 72 HOURS OF INCUBATION. Resulted [facility] [id number] [facility] [address] Ph: [phone] DIAGNOSTIC IMAGING Diagnostic Imaging Report : [id number] Signed PATIENT: MAURO CASTILLO ACCT: [id number] UNIT: [id number] : 1935 LOC: ER ROOM / BED: / AGE / SEX: 89 / M ADM STATUS: REG ER SERVICE 15 ORDERING PHYSICIAN: NIUR MONTELONGO MD PROCEDURE(s): CXRP - CHEST PORTABLE REASON: sob ORDER NUMBER(s): [id number], ACCESSION NUMBER(s): [id number] EXAM: XR Chest, 1 View CLINICAL INDICATION: sob TECHNIQUE: Frontal view of the chest. COMPARISON: XY CHEST PORTABLE on DOS: 06/28/24, XY CHEST PORTABLE on DOS: 05/12/24, XY CHEST PORTABLE on DOS: 11/17/23, XY CHEST PORTABLE on DOS: 05/08/23, CHEST PORTABLE on DOS: 07/15/22 FINDINGS: LUNGS AND PLEURAL SPACES: Pulmonary congestion and edema. Pneumonia cannot be excluded. No pneumothorax. HEART: Unremarkable. No cardiomegaly. MEDIASTINUM: Unremarkable. Normal mediastinal contour. BONES/JOINTS: Unremarkable. No acute fracture. OTHER FINDINGS: . . . . IMPRESSION: Pulmonary congestion and edema. Pneumonia cannot be excluded. ATED BY: SHAINA PANCHAL MD DICTATED DATE/TIME: 07/18/241943 SIGNED BY: SHAINA PANCHAL MD SIGNED DATE/TIME: 07/18/241943 CC: Time of 1ST Reevaluation: 19:36 Reevaluation 1ST: Unchanged Patient Education/Counseling: Diagnosis, Treatment, Prognosis Family Education/Counseling: No Family Present Additional Information The following tests were ordered, and results were reviewed by me: EKG, BMP, CBC, XY CHEST, TROP -x3, BNP, UA Additional Information was gathered from interviewing the following independent historians: EMS I reviewed and agreed with the following test results read by other providers: XY CHEST I discussed treatment and results with medical personnel and: patient Departure 1 Departure Time of Disposition: 17:31 Impression: Primary Impression: Acute on chronic systolic (congestive) heart failure Additional Impression: Shortness of breath Disposition: 02 SHORT TERM HOSPITAL Admit to: Med Surg Condition: Guarded Critical Care Note Critical Care Time?: Yes Critical care comment: Acute shortness of breath Authorized and Performed by: Niru Montelongo MD Total critical care time: Approximately 37 minutes Due to a high probability of clinically significant, life threatening deterioration, the patient required my highest level of preparedness to intervene emergently and I personally spent this critical care time directly and personally managing the patient. This critical care time included obtaining a history; examining the patient; pulse oximetry; ordering and review of studies; arranging urgent treatment with development of a management plan; evaluation of patient's response to treatment; frequent reassessment; and, discussions with other providers. This critical care time was performed to assess and manage the high probability of imminent, life-threatening deterioration that could result in multi-organ failure. It was exclusive of separately billable procedures and treating other patients and teaching time. Please see my other sections and the rest of the note for further information on patient assessment and treatment. Stability Stability form required: No Heart Score Heart Score: Heart Score Response (Comments) Value History Moderate Suspicious 1 EKG Repolarization Disturb 1 Age >65 2 Risk Factors >3 or Hx ASHD 2 Troponin >3 x's Normal limit 2 Total 8 I personally scribed for NIRU MONTELONGO MD ([email or web address]) on 07/18/24 at 19:25. Electronically submitted by Nadine Hooper ([email or web address]). I personally scribed for NIRU MONTELONGO MD ([email or web address]) on 07/18/24 at 20:00. Electronically submitted by Nadine Hooper ([email or web address]). I personally scribed for NIRU MONTELONGO MD ([email or web address]) on 07/18/24 at 22:09. Electronically submitted by Nadine Hooper ([email or web address]). I personally scribed for NIRU MONTELONGO MD ([email or web address]) on 07/18/24 at 22:13. Electronically submitted by Nadine Hooper ([email or web address]). NIRU MONTELONGO MD Jul 18, 2024 19:25
[2024-07-18 19:44] LABS: Basophils # (auto) 0 10 ^3/uL (0-0.2); Basophils % (auto) 0.4 % (0.0-2.0); Eosinophils # (auto) 0.1 10 ^3/uL (0-0.8); Eosinophils % (auto) 0.9 % (0.0-7.0); Hematocrit 35.5 % (41.0-53.0); Hemoglobin 11.3 g/dL (13.5-17.5); Lymphocytes # (auto) 0.6 10 ^3/uL (0.4-5.4); Lymphocytes % (auto) 9.6 % (10.0-50.0); Mean Corpuscular Hgb Conc. 31.7 g/dL (32.0-36.0); Mean Corpuscular Volume 94.6 fL (80.0-100.0); Monocytes # (auto) 0.3 10 ^3/uL (0-1.3); Monocytes % (auto) 5.1 % (0.0-12.0); Neutrophils # (auto) 5.1 10 ^3/uL (1.6-8.6); Platelet Count (auto) 170 10^3/uL (140-450); Red Blood Cells 3.75 10^6/uL (4.5-5.90); Red Cell Distribution Width 17.5 % (11.8-14.3); White Blood Cell 6.1 10^3/uL (4.4-10.8)
--- NOTE | 2024-07-18 19:47 | DVH ---
EXAM: XR Chest, 1 View CLINICAL INDICATION: sob TECHNIQUE: Frontal view of the chest. COMPARISON: XY CHEST PORTABLE on DOS: 06/28/24, XY CHEST PORTABLE on DOS: 05/12/24, XY CHEST PORTABL E on DOS: 11/17/23, XY CHEST PORTABLE on DOS: 05/08/23, CHEST PORTABLE on DOS: 07/15/22 FINDINGS: LUNGS AND PLEURAL SPACES: Pulmonary congestion and edema. Pneumonia cannot be excluded. No pneumot horax. HEART: Unremarkable. No cardiomegaly. MEDIASTINUM: Unremarkable. Normal mediastinal contour. BONES/JOINTS: Unremarkable. No acute fracture. OTHER FINDINGS: . . . . IMPRESSION: Pulmonary congestion and edema. Pneumonia cannot be excluded.
[2024-07-18 19:53] LABS: Potassium 4.5 mmol/L (3.5-5.1); Sodium 142 mmol/L (136-145)
[2024-07-18 19:54] LABS: Anion Gap 10 (5-15); Carbon Dioxide 24 mmol/L (20-31)
[2024-07-18 19:59] LABS: BUN/Creatinine Ratio 19.1 (10.0-20.0); Glucose 95 mg/dL (74-106)
[2024-07-18 20:00] LABS: Blood Urea Nitrogen 43 mg/dL (9-23); Calcium 8.6 mg/dL (8.7-10.4); Chloride 108 mmol/L (98-107)
[2024-07-18 21:47] LABS: Urine Bacteria None Seen /hpf (None Seen)
[2024-07-18 21:57] LABS: Urine Blood Negative /uL (Negative); Urine Clarity Clear (Clear); Urine Color Light-Yellow (Yellow); Urine Protein, UAD Negative (Negative); Urine Specific Gravity 1.012 (1.001-1.035); Urine Squamous Epithelial Cell None Seen /hpf (<5); Urine Urobilinogen Normal (Negative)
[2024-07-18 23:47] LABS: Lactic Acid w/Reflex 2.9 mmol/L (0.4-2.0)
[2024-07-19] MEDS: FUROSEMIDE 40 MG/4 ML VIAL IV ONE
[2024-07-19] MEDS: PIPERACILLIN-TAZO 4.5GM 100 ML IV ONE
[2024-07-19] MEDS: AZITHROMYCIN 250 MG TAB PO ONE
[2024-07-19 00:36] VITALS: PULSE 68; RESP 15; O2SAT 97
[2024-07-19 01:35] VITALS: BP 118/58; PULSE 71; RESP 14; TEMP 98.4; O2SAT 92
== END 2024-07-19 02:00 | disposition short-term general hospital (02) ==
LOC: EDBD 18:50 → ER 18:50
DX: I50.23 Acute on chronic systolic (congestive) heart failure (principal); R06.02 Shortness of breath; I48.91 Unspecified atrial fibrillation; J44.9 Chronic obstructive pulmonary disease, unspecified; Z90.49 Acquired absence of other specified parts of digestive tract
CPT/HCPCS: 36415; 71045; 80048; 81001; 83605; 83880; 84484; 85025; 87040; 93005; 96365; 96375; 99291; J1940; J2543

== ENCOUNTER 2024-09-25 16:58 | Emergency (ER) | payer OTHER ==
[~2024-09-25] VITALS: Ht 172.7 cm; Wt 73.6 kg
--- NOTE | 2024-09-25 17:44 | ED.PDOC ---
SOB-HPI HPI Comments 89-year-old male with a history of AFib, CHF, COPD and thyroid disease brought in by EMS complaining of shortness of breath for the last 2 hours. Patient also reports that his lower extremity cellulitis has become worse. He states he was diagnosed with cellulitis about a month ago. He states he was recently prescribed Keflex, however stopped taking it due to abdominal cramping that occurred after taking it. He denies fever, but does report chills. He denies any chest pain, cough or sick contacts. Chief Complaint: Shortness of Breath Time Seen by MD: 17:30 Primary Care Provider: IRA Mcdaniel notes: Nurses Notes, Public Services Librarian Notes, Medications, Allergies Information Source: Patient, Emergency Med Personnel Mode of Arrival: EMS Severity: Moderate Timing: Days Duration: Since onset Context: At Rest PE Risk Factors: None History of: COPD, CHF Prehospital treatment: None Modifying Factors: Nothing Associated Signs and Symptoms: None Past Medical History PAST MEDICAL HISTORY: AFIB, CHF, COPD, Thyroid Surgical History: Appendectomy Surgical History (Other): Bilateral knees Family History Family History: Reviewed,noncontributory to illness Social History Smoker: Quit Greater Than 1 Year, Cigarettes Alcohol: Denies ETOH Use Drugs: Denies Drug Use Lives In: Home Constitutional: denies: chills, diaphoresis, fatigue, fever, malaise, sweats, weakness, others EENTM: denies: blurred vision, double vision, ear bleeding, ear discharge, ear drainage, ear pain, ear ringing, eye pain, eye redness, hearing loss, mouth pain, mouth swelling, nasal discharge, nose bleeding, nose congestion, nose pain, photophobia, tearing, throat pain, throat swelling, voice changes, others Respiratory: reports: shortness of breath; denies: cough, hemoptysis, orthopnea, SOB at rest, SOB with excertion, stridor, wheezing, others Cardiovascular: denies: chest pain, dizzy spells, diaphoresis, Dyspnea on exertion, edema, irregular heart beat, left arm pain, lightheadedness, palpitations, PND, syncope, others Gastrointestinal: denies: abdomen distended, abdominal pain, blood streaked bowels, constipated, diarrhea, dysphagia, difficulty swallowing, hematemesis, melena, nausea, poor appetite, poor fluid intake, rectal bleeding, rectal pain, vomiting, others Genitourinary: denies: burning, dysuria, flank pain, frequency, hematuria, incontinence, penile discharge, penile sore, pain, testicle pain, testicle swelling, urgency, others Neurological: denies: dizziness, fainting, headache, left sided numbness, left sided weakness, numbness, paresthesia, pre-existing deficit, right sided numbness, right sided weakness, seizure, speech problems, tingling, tremors, weakness, others Musculoskeletal: denies: back pain, gout, joint pain, joint swelling, muscle pain, muscle stiffness, neck pain, others Integumetry: denies: bruises, change in color, change in hair/nails, dryness, laceration, lesions, lumps, rash, wounds, others Allergic/Immunocompromised: denies: Difficulty Healing, Frequent Infections, Hives, Itching, others Hematologic/Lymphatic: denies: anemia, blood clots, easy bleeding, easy bruising, swollen glands, others Endocrine: denies: excessive hunger, excessive sweating, excessive thirst, excessive urination, flushing, intolerance to cold, intolerance to heat, unexplained weight gain, unexplained weight loss, others Psychiatric: denies: anxiety, bipolar disorder, depression, hopeless, panic disorder, schizophrenia, sleepless, suicidal, others All Other Systems: Reviewed and Negative Physical Exam General Appearance: Mild Distress HEENT: Other (Pupils and face symmetric. Moist mucous membranes.) Neck: Full Range of Motion, Normal Inspection Respiratory: Accessory Muscle Use, Decreased Breath Sounds, Respiratory Distress (Mild), Rhonchi Cardiovascular: No JVD, Regular Rate/Rhythm Breast Exam: Deferred Gastrointestinal: Non Tender, Soft Genitalia: Deferred Pelvic: Deferred Rectal: Deferred Extremities: Normal inspection, Normal range of motion, Non-tender, No pedal edema Neurologic: Alert (Oriented times 4), Normal Affect, Normal Mood, Other (Moves all extremities with adequate strength and tone. Appropriately conversant.) Cerebellar Function: NOT DONE Reflexes: NOT DONE Skin: Dry, Warm, Other (Bilateral lower extremity erythema and edema with soft tissue tenderness.) Lymphatic: NOT DONE EKG EKG : Comments AFib, rate 95, normal QRS interval, QTC prolonged at 503, left axis deviation, probable old inferior or anteroseptal infarct, nonspecific T change. Occasional PVCs. Was a procedure done? Was a procedure done?: No Differential Dx Differential Diagnosis: Asthma, CHF, COPD, Hyperventilation, Myocardial infarction, Pneumonia, Pulmonary Embolism, Respiratory Distress, URI Comments Cellulitis, sepsis, among others X-Ray, Labs, Meds, VS Vital Signs Date Time Temp Pulse Resp B/P (MAP) Pulse Ox O2 Delivery O2 Flow Rate FiO2 09/25/24 18:05 18 96 Nasal Cannula* 3 32 09/25/24 18:05 96 Nasal Cannula* 4 36 09/25/24 17:00 99.1 100 28 110/67 (81) 95 99.1 09/25/24 16:58 93 Lab Test 09/25/24 19:14 09/25/24 18:04 Range/Units Troponin I High Sensitivity 29 28 </=54 ng/L White Blood Count 3.9 L 4.4-10.8 10^3/uL Red Blood Count 3.04 L 4.5-5.90 10^6/uL Hemoglobin 9.6 L 13.5-17.5 g/dL Hematocrit 28.9 L 41.0-53.0 % Mean Corpuscular Volume 95.3 80.0-100.0 fL Mean Corpuscular Hemoglobin 31.7 28.0-32.0 pg Mean Corpuscular Hemoglobin Concent 33.2 32.0-36.0 g/dL Red Cell Distribution Width 17.0 H 11.8-14.3 % Platelet Count 160 140-450 10^3/uL Mean Platelet Volume 8.0 6.9-10.8 fL Neutrophils (%) (Auto) 76.6 37.0-80.0 % Lymphocytes (%) (Auto) 15.2 10.0-50.0 % Monocytes (%) (Auto) 6.4 0.0-12.0 % Eosinophils (%) (Auto) 1.2 0.0-7.0 % Basophils (%) (Auto) 0.6 0.0-2.0 % Neutrophils # (Auto) 3.0 1.6-8.6 10 ^3/uL Lymphocytes # (Auto) 0.6 0.4-5.4 10 ^3/uL Monocytes # (Auto) 0.2 0-1.3 10 ^3/uL Eosinophils # (Auto) 0 0-0.8 10 ^3/uL Basophils # (Auto) 0 0-0.2 10 ^3/uL Nucleated Red Blood Cells 0.0 % Sodium Level 137 136-145 mmol/L Potassium Level 4.8 3.5-5.1 mmol/L Chloride Level 109 H 98-107 mmol/L Carbon Dioxide Level 21 20-31 mmol/L Anion Gap 7 5-15 Blood Urea Nitrogen 38 H 9-23 mg/dL Creatinine 1.94 H 0.700-1.30 mg/dL Glomerular Filtration Rate Calc 33 >90 mL/min BUN/Creatinine Ratio 19.6 10.0-20.0 Serum Glucose 90 74-106 mg/dL Lactic Acid Level 0.9 0.4-2.0 mmol/L Calcium Level 8.9 8.7-10.4 mg/dL B-Type Natriuretic Peptide 276.20 0-100 pg/mL Influenza Type A Antigen Negative Negative Influenza Type B Antigen Negative Negative SARS-CoV-2 Antigen (Rapid) Negative NEGATIVE Current Medications Medications (Trade) Dose Ordered Sig/Kalpana Route Start Time Stop Time Status Last Admin Albuterol (Ventolin Medneb) 5 mg ONCE ONCE NEB 09/25/24 17:45 09/25/24 17:46 DC 09/25/24 17:59 Ipratropium Gunpowder (Atrovent Medneb) 0.5 mg ONCE ONCE NEB 09/25/24 17:45 09/25/24 17:46 DC 09/25/24 17:59 Dexamethasone Sodium Phosphate (Decadron Injection) 10 mg ONCE ONCE IV 09/25/24 17:45 09/25/24 17:46 DC 09/25/24 18:29 Cefepime HCl 50 ml @ 12.5 mls/hr ONCE ONCE IV 09/25/24 18:00 09/25/24 21:59 09/25/24 18:29 [place] [address] Ph: [phone] DIAGNOSTIC IMAGING Diagnostic Imaging Report : [id number] Signed PATIENT: MAURO CASTILLO ACCT: [id number] UNIT: [id number] : 1935 LOC: ER ROOM / BED: / AGE / SEX: 89 / M ADM STATUS: REG ER SERVICE [id number] ORDERING PHYSICIAN: KATIE LAKE MD PROCEDURE(s): CXRP - CHEST PORTABLE REASON: sob ORDER NUMBER(s): [id number], ACCESSION NUMBER(s): [id number] EXAM: XY CHEST PORTABLE CLINICAL HISTORY: sob TECHNIQUE: Single p view of the chest WID: COMPARISON: XY CHEST PORTABLE on DOS: 07/18/24 FINDINGS: Lines and tubes: Soft tissue anchors project over the right humeral head. Chest: The heart size and pulmonary vasculature is within normal limits. Calcified plaque projects over the aortic arch. No pleural effusion, pneumothorax, or consolidation. Linear bibasilar opacities, greater on the right. The osseous structures are grossly intact. Superior position of the right humeral head relative to the glenoid likely related to chronic rotator cuff pathology. Moderate degenerative change of the left glenohumeral joint. IMPRESSION: Linear bibasilar opacities, greater on the right which could reflect subsegm ental atelectasis. A component of pneumonia or scarring could contribute to this appearance, particularly on the right. ATED BY: WIL CHANDLER MD DICTATED DATE/TIME: 09/25/241925 SIGNED BY: WIL CHANDLER MD SIGNED DATE/TIME: 09/25/241925 CC: X-Ray, Labs, Meds, VS Comment 89-year-old male with a history of AFib, CHF, COPD and thyroid disease presenting with shortness of breath. Patient also reports worsening cellulitis and inability to take recently prescribed Keflex due to side effects. Vitals remarkable for respiratory rate of 28 Exam remarkable for mild respiratory distress and diminished breath sounds, bilateral leg erythema with mild edema and diffuse mild tenderness. Rhythm strip independently interpreted by me: AFib, rate 95, occasional PVCs Chest x-ray IMPRESSION: Linear bibasilar opacities, greater on the right which could reflect subsegmental atelectasis. A component of pneumonia or scarring could contribute to this appearance, particularly on the right. CBC remarkable for WBC 3.9, metabolic panel remarkable for BUN 38, creatinine 1.94, BNP 276.27, troponin negative x2, lactate normal Patient treated with the following in the ED: Albuterol 5 mg/Atrovent 0.5 mg nebulized, dexamethasone 10 mg IV, cefepime 1 g IV On re-evaluation, patient states he is no longer having difficulty breathing. He denies chest pain. Oxygen saturation is 96% on 4 L nasal cannula and he is not in distress. Hospitalization was considered, however patient had rapid improvement of symptoms with treatment in the ED, and I no longer feel hospitalization is necessary. Patient now appears stable for discharge with close outpatient follow-up with his primary physician. Patient advised to discontinue Keflex, as it is causing negative side effects. I will prescribe clindamycin and Bactrim. Time of 1ST Reevaluation: 18:00 Reevaluation 1ST: Unchanged Time of 2ND Reevaluation: 20:09 Reevaluation 2ND: Improved Patient Education/Counseling: Diagnosis, Treatment Family Education/Counseling: No Family Present Departure 1 Departure Time of Disposition: 20:09 Impression: Primary Impression: COPD exacerbation Additional Impression: Bilateral cellulitis of lower leg Disposition: HOME / SELF CARE / HOMELESS Condition: Stable Additional Instructions: Follow-up with your primary doctor in 1-2 days. Discontinue Keflex (cephalex in.) I have prescribed to other antibiotics. Return to ER for persistent or worsening symptoms. e-Prescriptions Sulfamethoxazole W/Trimethopri (Bactrim Ds Tablet) 1 Tab Tb 1 TAB PO BID for 10 Days, #20 TAB Prov: KATIE LAKE MD 09/25/24 Clindamycin HCl (Clindamycin Hydrochloride) 300 Mg Cap 300 MG PO QID for 10 Days, #40 CAP Prov: KATIE LAKE MD 09/25/24 Discharged With: Relative Critical Care Note Critical Care Time?: No Stability Stability form required: No Heart Score Heart Score: Heart Score Response (Comments) Value History N/A 0 EKG N/A 0 Age N/A 0 Risk Factors N/A 0 Troponin N/A 0 Total 0 I personally scribed for KATIE LAKE MD ([email or web address]) on 09/25/24 at 17:44. Electronically submitted by Avis Gutierrez ([email or web address]). I personally scribed for KATIE LAKE MD ([email or web address]) on 09/25/24 at 19:31. Electronically submitted by Avis Gutierrez ([email or web address]). KATIE LAKE MD Sep 25, 2024 17:44
[2024-09-25] MEDS: IPRATROPIUM BROM 0.5 MG/2.5ML INH SOL NEB ONE (17:59)
[2024-09-25] MEDS: ALBUTEROL SULF 2.5 MG/0.5ML(0.5%) NEB SOLN NEB ONE (17:59)
[2024-09-25] MEDS ORDERED: VANCOMYCIN PER PHARMACY 0 MG IV SCH (18:00)
[2024-09-25 18:18] LABS: Basophils # (auto) 0 10 ^3/uL (0-0.2); Basophils % (auto) 0.6 % (0.0-2.0); Eosinophils # (auto) 0 10 ^3/uL (0-0.8); Eosinophils % (auto) 1.2 % (0.0-7.0); Hematocrit 28.9 % (41.0-53.0); Hemoglobin 9.6 g/dL (13.5-17.5); Lymphocytes # (auto) 0.6 10 ^3/uL (0.4-5.4); Lymphocytes % (auto) 15.2 % (10.0-50.0); Mean Corpuscular Hemoglobin 31.7 pg (28.0-32.0); Mean Corpuscular Hgb Conc. 33.2 g/dL (32.0-36.0); Mean Corpuscular Volume 95.3 fL (80.0-100.0); Monocytes # (auto) 0.2 10 ^3/uL (0-1.3); Monocytes % (auto) 6.4 % (0.0-12.0); Neutrophils % (auto) 76.6 % (37.0-80.0); Platelet Count (auto) 160 10^3/uL (140-450); Red Blood Cells 3.04 10^6/uL (4.5-5.90); White Blood Cell 3.9 10^3/uL (4.4-10.8)
[2024-09-25 18:28] LABS: Potassium 4.8 mmol/L (3.5-5.1); Sodium 137 mmol/L (136-145)
[2024-09-25 18:29] LABS: Anion Gap 7 (5-15); Calcium 8.9 mg/dL (8.7-10.4); Carbon Dioxide 21 mmol/L (20-31)
[2024-09-25] MEDS: CEFEPIME 1GM/ 50ML 50 ML IV ONE (18:29)
[2024-09-25] MEDS: DexAMETHasone SOD PHOS 10MG/1ML VIAL INJ IV ONE (18:29)
[2024-09-25 18:34] LABS: BUN/Creatinine Ratio 19.6 (10.0-20.0); Glucose 90 mg/dL (74-106)
[2024-09-25 18:41] LABS: Blood Urea Nitrogen 38 mg/dL (9-23); Chloride 109 mmol/L (98-107)
--- NOTE | 2024-09-25 19:28 | DVH ---
EXAM: XY CHEST PORTABLE CLINICAL HISTORY: sob TECHNIQUE: Single p view of the chest WID: COMPARISON: XY CHEST PORTABLE on DOS: 07/18/24 FINDINGS: Lines and tubes: Soft tissue anchors project over the right humeral head. Chest: The heart size and pulmonary vasculature is within normal limits. Calcified plaque projects over the aortic arch. No pleural effusion, pneumothorax, or consolidation. Linear bibasilar opacities, greater on the right . The osseous structures are grossly intact. Superior position of the right humeral head relative to th e glenoid likely related to chronic rotator cuff pathology. Moderate degenerative change of the left glenohumeral joint. IMPRESSION: Linear bibasilar opacities, greater on the right which could reflect subsegmental atelectasis. A comp onent of pneumonia or scarring could contribute to this appearance, particularly on the right.
[2024-09-25 19:34] LABS: COVID19 ANTIGEN SOFIA FIA NEGATIVE (NEGATIVE); Rapid Influenza A Negative (Negative); Rapid Influenza B Negative (Negative)
[2024-09-25] MEDS ORDERED: BACDST PO (20:20)
[2024-09-25] MEDS ORDERED: CLIN-203 PO (20:20)
[2024-09-25] MEDS: VANCOMYCIN 1GM/200ML PM 200 ML IV ONE (21:06)
[2024-09-25 22:11] VITALS: BP 109/70; PULSE 109; RESP 18; TEMP 99; O2SAT 95
--- NOTE | 2024-09-26 02:04 | ECG ---
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
--- NOTE | 2024-10-02 10:46 | ECG ---
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
== END 2024-09-25 22:10 | disposition home or self-care (01) ==
LOC: ER 16:58 → EDBD 16:58 → ER 22:10
DX: J44.1 Chronic obstructive pulmonary disease with (acute) exacerbation (principal); L03.115 Cellulitis of right lower limb; L03.116 Cellulitis of left lower limb; I48.91 Unspecified atrial fibrillation; I50.9 Heart failure, unspecified; Z90.49 Acquired absence of other specified parts of digestive tract; Z20.822 Contact with and (suspected) exposure to COVID-19
CPT/HCPCS: 36415; 71045; 80048; 83605; 83880; 84484; 85025; 87040; 87426; 87804; 93005; 94640; 96365; 96366; 96375; 99285; J0692; J1100

== ENCOUNTER 2024-11-23 04:02 | Inpatient (IN) | payer OTHER ==
[~2024-11-23] VITALS: Ht 172.7 cm; Wt 77.7 kg
[2024-11-23] VITALS (17 sets, daily range): BP systolic 98–129; BP diastolic 62–77; PULSE 75–88; RESP 13–22; TEMP 97.9–98.9; O2SAT 95–100
[~2024-11-23 04:02] MED LIST changes: +BACDST PO; +CLIN-203 PO
--- NOTE | 2024-11-23 04:35 | ED.PDOC ---
SOB-HPI HPI Comments 89-year-old male who came to ER via EMS for shortness of breath. Patient has history of AFib, CHF and COPD. He is on home oxygen. States few hours ago, he was on his way to the restroom, when he felt short of breath, which progressively worsened with wheezing and throat pain. He denies any acute chest pains. Upon arrival paramedics patient was wheezing, saturating 94% at 2 L/min. Patient was given albuterol and Atrovent nebulization while EN route to the emergency room. 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: Immigration Attorney Notes Information Source: Patient, Emergency Med Personnel Mode of Arrival: EMS Severity: Moderate Timing: Hours Duration: Since onset Context: At Rest, With Light Exertion History of: COPD, CHF Prehospital treatment: Breathing Tx, Oxygen Modifying Factors: Nothing Associated Signs and Symptoms: Wheeze, Cough, Sore Throat Past Medical History PAST MEDICAL HISTORY: AFIB, CHF, COPD, Thyroid Surgical History: Appendectomy Family History Family History: Reviewed,noncontributory to illness Social History Smoker: Quit Greater Than 1 Year, Cigarettes Alcohol: Denies ETOH Use Drugs: Denies Drug Use Lives In: Home Constitutional: denies: chills, diaphoresis, fatigue, fever, malaise, sweats, weakness, others EENTM: denies: blurred vision, double vision, ear bleeding, ear discharge, ear drainage, ear pain, ear ringing, eye pain, eye redness, hearing loss, mouth pain, mouth swelling, nasal discharge, nose bleeding, nose congestion, nose pain, photophobia, tearing, throat pain, throat swelling, voice changes, others Respiratory: reports: SOB at rest, shortness of breath, wheezing; denies: cough, hemoptysis, orthopnea, SOB with excertion, stridor, others Cardiovascular: denies: chest pain, dizzy spells, diaphoresis, Dyspnea on exertion, edema, irregular heart beat, left arm pain, lightheadedness, palpitations, PND, syncope, others Gastrointestinal: denies: abdomen distended, abdominal pain, blood streaked bowels, constipated, diarrhea, dysphagia, difficulty swallowing, hematemesis, melena, nausea, poor appetite, poor fluid intake, rectal bleeding, rectal pain, vomiting, others Genitourinary: denies: burning, dysuria, flank pain, frequency, hematuria, incontinence, penile discharge, penile sore, pain, testicle pain, testicle swelling, urgency, others Neurological: denies: dizziness, fainting, headache, left sided numbness, left sided weakness, numbness, paresthesia, pre-existing deficit, right sided numbness, right sided weakness, seizure, speech problems, tingling, tremors, weakness, others Musculoskeletal: denies: back pain, gout, joint pain, joint swelling, muscle pain, muscle stiffness, neck pain, others Integumetry: denies: bruises, change in color, change in hair/nails, dryness, laceration, lesions, lumps, rash, wounds, others Allergic/Immunocompromised: denies: Difficulty Healing, Frequent Infections, Hives, Itching, others Hematologic/Lymphatic: denies: anemia, blood clots, easy bleeding, easy bruising, swollen glands, others Endocrine: denies: excessive hunger, excessive sweating, excessive thirst, excessive urination, flushing, intolerance to cold, intolerance to heat, unexplained weight gain, unexplained weight loss, others Psychiatric: denies: anxiety, bipolar disorder, depression, hopeless, panic disorder, schizophrenia, sleepless, suicidal, others Physical Exam General Appearance: Mild Distress HEENT: Other (Pupils and face symmetric. Moist mucous membranes. Moderate pharyngeal erythema with mild edema. No exudate or uvular deviation.) Neck: Full Range of Motion, Normal Inspection Respiratory: Accessory Muscle Use, Decreased Breath Sounds, Rhonchi, Wheezing Cardiovascular: No Edema, No JVD, Tachycardia Breast Exam: Deferred Gastrointestinal: Non Tender, Soft Genitalia: Deferred Pelvic: Deferred Rectal: Deferred Extremities: Normal inspection, Normal range of motion, Non-tender, No pedal edema Neurologic: Alert (Oriented x4), Normal Affect, Normal Mood, Other (moves all extremities) Cerebellar Function: NOT DONE Reflexes: NOT DONE Skin: Dry, Normal Color, Warm Lymphatic: NOT DONE EKG EKG : Comments AFib, rate 91,, normal QRS interval, QTC 496, normal axis, possible old anteroseptal infarct, nonspecific T change, occasional PVCs Was a procedure done? Was a procedure done?: No Differential Dx Differential Diagnosis: Asthma, Bronchitis, CHF, COPD, Hyperventilation, Pneumonia, Respiratory Distress X-Ray, Labs, Meds, VS Vital Signs Date Time Temp Pulse Resp B/P (MAP) Pulse Ox O2 Delivery O2 Flow Rate FiO2 11/23/24 05:20 98 Room Air* 0 21 11/23/24 05:17 97.9 89 21 103/46 (65) 99 97.9 11/23/24 04:35 18 97 Nasal Cannula* 2 28 11/23/24 04:14 91 11/23/24 04:10 98.1 85 20 103/71 (82) 97 98.1 11/23/24 04:10 97 Nasal Cannula* 2 28 Lab Test 11/23/24 05:15 11/23/24 05:14 11/23/24 04:51 Range/Units Group A Streptococcus Rapid Pending Influenza Type A Antigen Pending Influenza Type B Antigen Pending SARS-CoV-2 Antigen (Rapid) Pending White Blood Count 6.3 4.4-10.8 10^3/uL Red Blood Count 3.37 L 4.5-5.90 10^6/uL Hemoglobin 10.1 L 13.5-17.5 g/dL Hematocrit 30.8 L 41.0-53.0 % Mean Corpuscular Volume 91.3 80.0-100.0 fL Mean Corpuscular Hemoglobin 30.1 28.0-32.0 pg Mean Corpuscular Hemoglobin Concent 32.9 32.0-36.0 g/dL Red Cell Distribution Width 14.7 H 11.8-14.3 % Platelet Count 143 140-450 10^3/uL Mean Platelet Volume 7.6 6.9-10.8 fL Neutrophils (%) (Auto) 79.4 37.0-80.0 % Lymphocytes (%) (Auto) 13.1 10.0-50.0 % Monocytes (%) (Auto) 5.6 0.0-12.0 % Eosinophils (%) (Auto) 1.2 0.0-7.0 % Basophils (%) (Auto) 0.7 0.0-2.0 % Neutrophils # (Auto) 5.0 1.6-8.6 10 ^3/uL Lymphocytes # (Auto) 0.8 0.4-5.4 10 ^3/uL Monocytes # (Auto) 0.4 0-1.3 10 ^3/uL Eosinophils # (Auto) 0.1 0-0.8 10 ^3/uL Basophils # (Auto) 0 0-0.2 10 ^3/uL Nucleated Red Blood Cells 0.0 % Sodium Level 133 L 136-145 mmol/L Potassium Level 4.6 3.5-5.1 mmol/L Chloride Level 100 98-107 mmol/L Carbon Dioxide Level 27 20-31 mmol/L Anion Gap 6 5-15 Blood Urea Nitrogen 30 H 9-23 mg/dL Creatinine 1.57 H 0.700-1.30 mg/dL Glomerular Filtration Rate Calc 42 >90 mL/min BUN/Creatinine Ratio 19.1 10.0-20.0 Serum Glucose 95 74-106 mg/dL Calcium Level 8.1 L 8.7-10.4 mg/dL Total Bilirubin 0.5 0.2-1.0 mg/dL Aspartate Amino Transferase (AST) 19 <34 U/L Alanine Aminotransferase (ALT) 15 7-40 U/L Alkaline Phosphatase 57 46-116 U/L Troponin I High Sensitivity Pending B-Type Natriuretic Peptide 201.13 0-100 pg/mL Total Protein 5.6 L 5.7-8.2 g/dL Albumin 3.6 3.2-4.8 g/dL Current Medications Medications (Trade) Dose Ordered Sig/Kalpana Route Start Time Stop Time Status Last Admin Albuterol (Ventolin Medneb) 2.5 mg ONCE ONCE NEB 11/23/24 04:30 11/23/24 04:31 DC 11/23/24 04:45 Ipratropium [place] (Atrovent Medneb) 0.5 mg ONCE ONCE NEB 11/23/24 04:30 11/23/24 04:31 DC 11/23/24 04:45 Methylprednisolone Sodium Succinate (Solu Medrol) 125 mg ONCE ONCE IV 11/23/24 04:30 11/23/24 04:31 DC 11/23/24 04:51 Ceftriaxone Sodium 50 ml @ 100 mls/hr ONCE ONCE IV 11/23/24 04:30 11/23/24 04:59 DC 11/23/24 04:52 Acetaminophen (Tylenol Tablet) 650 mg ONCE ONCE PO 11/23/24 04:30 11/23/24 04:31 DC 11/23/24 04:55 EXAM: XY CHEST PORTABLE Indication: cp Technique: Single frontal view of the chest was obtained Comparison: None FINDINGS: Lines and Tubes: None Lungs: No focal consolidation. Pleura: No effusion. No pneumothorax. Cardiomediastinal contours: Unremarkable Bones: No acute osseous abnormality. IMPRESSION: No acute cardiopulmonary disease. X-Ray, Labs, Meds, VS Comment 89-year-old male with a history of CHF, COPD, AFib and thyroid disease brought in by EMS from home complaining of shortness of breath and throat pain Vitals remarkable for respiratory rate 21 Exam remarkable for pharyngeal erythema, accessory muscle use, wheezing, rhonchi and diminished breath sounds Rhythm strip independently interpreted by me: AFib, rate 91, occasional PVCs Chest x-ray cardiomegaly with pulmonary vascular congestion CBC unremarkable, metabolic panel remarkable for sodium 133, BUN 30, creatinine 1.57, BNP 201.13, troponin pending, influenza, COVID and rapid strep pending Patient treated with the following in the ED: Albuterol 2.5 mg/Atrovent 0.5 mg nebulized, Solu-Medrol 125 mg IV, Rocephin 1 g IV, Tylenol 1 g p.o. On re-evaluation, patient states he feels better, however still appears tachypneic with scattered expiratory wheezes. Oxygen saturation is normal on nasal cannula oxygen. Other vitals are stable. Plan is to admit the patient for ongoing respiratory support as needed. Case discussed with Dr. Dhaliwal at [facility], who authorized us to admit the patient here. Authorization [id number] Time of 1ST Reevaluation: 04:30 Reevaluation 1ST: Unchanged Patient Education/Counseling: Diagnosis, Treatment Family Education/Counseling: No Family Present SEPSIS Sepsis Screen Physician Orders Troponin-I Hs (11/23/24 04:06) Chest Portable (11/23/24 04:47) Urinalysis (11/23/24 04:06) Heplock Iv (11/23/24 04:06) Ice Cream Freezer (11/23/24 04:06) Blood Pressure (11/23/24 04:06) Pulse Oximetry (11/23/24 04:06) Electrocardigram (11/23/24 04:06) Troponin-I Hs (11/23/24 05:06) Troponin-I Hs (11/23/24 07:06) Electrocardigram (11/23/24 05:06) Rapid Strep Screen - Throat (11/23/24 04:18) Rapid Influenza A&B (11/23/24 04:18) Covid19 Antigen [place] (11/23/24 ) Nose Throat Culture (11/23/24 04:18) Vital Signs Date Time Temp Pulse Resp B/P (MAP) Pulse Ox O2 Delivery O2 Flow Rate FiO2 11/23/24 05:20 98 Room Air* 0 21 11/23/24 05:17 97.9 89 21 103/46 (65) 99 97.9 11/23/24 04:35 18 97 Nasal Cannula* 2 28 11/23/24 04:14 91 11/23/24 04:10 98.1 85 20 103/71 (82) 97 98.1 11/23/24 04:10 97 Nasal Cannula* 2 28 Laboratory Tests Test 11/23/24 04:51 White Blood Count 6.3 10^3/uL (4.4-10.8) Medications Medications Dose Ordered Sig/Kalpana Route Start Time Stop Time Status Last Admin Dose Admin Acetaminophen 650 mg ONCE ONCE PO 11/23/24 04:30 11/23/24 04:31 DC 11/23/24 04:55 Albuterol 2.5 mg ONCE ONCE NEB 11/23/24 04:30 11/23/24 04:31 DC 11/23/24 04:45 Ceftriaxone Sodium 50 ml @ 100 mls/hr ONCE ONCE IV 11/23/24 04:30 11/23/24 04:59 DC 11/23/24 04:52 Ipratropium [place] 0.5 mg ONCE ONCE NEB 11/23/24 04:30 11/23/24 04:31 DC 11/23/24 04:45 Methylprednisolone Sodium Succinate 125 mg ONCE ONCE IV 11/23/24 04:30 11/23/24 04:31 DC 11/23/24 04:51 Departure 1 Departure Time of Disposition: 05:54 Impression: Primary Impression: COPD exacerbation Disposition: ADMITTED INPATIENT Admit to: Tele Condition: Guarded Critical Care Note Critical Care Time?: Yes (35 min-critical care time only) Critical care comment: Critical care time including multiple bedside re-evaluations, review of lab and imaging studies, and discussion of the case with the consulting and admitting providers. Patient is high risk for respiratory decompensation. Stability Stability form required: No Heart Score Heart Score: Heart Score Response (Comments) Value History Moderate Suspicious 1 EKG Repolarization Disturb 1 Age >65 2 Risk Factors >3 or Hx ASHD 2 Troponin Normal limit 0 Total 6 I personally scribed for KATIE LAKE MD ([facility]) on 11/23/24 at 04:35. Electronically submitted by Velasquez Cheung ([facility]). I personally scribed for KATIE LAKE MD ([facility]) on 11/23/24 at 05:16. Electronically submitted by Velasquez Cheung ([facility]). KATIE LAKE MD Nov 23, 2024 04:35
[2024-11-23] MEDS: ALBUTEROL SULF 2.5 MG/0.5ML(0.5%) NEB SOLN NEB ONE (04:45)
[2024-11-23] MEDS: IPRATROPIUM BROM 0.5 MG/2.5ML INH SOL NEB ONE (04:45)
[2024-11-23] MEDS: methylPREDNISolone SOD SUCC 125 MG/2 ML VL IV ONE (04:51)
[2024-11-23] MEDS: cefTRIAXone 1GM/50ML D5W 50 ML IV ONE (04:52)
[2024-11-23] MEDS: ACETAMINOPHEN 325 MG TAB PO ONE (04:55)
[2024-11-23 05:01] LABS: Basophils # (auto) 0 10 ^3/uL (0-0.2); Basophils % (auto) 0.7 % (0.0-2.0); Eosinophils # (auto) 0.1 10 ^3/uL (0-0.8); Eosinophils % (auto) 1.2 % (0.0-7.0); Hematocrit 30.8 % (41.0-53.0); Hemoglobin 10.1 g/dL (13.5-17.5); Lymphocytes # (auto) 0.8 10 ^3/uL (0.4-5.4); Lymphocytes % (auto) 13.1 % (10.0-50.0); Mean Corpuscular Hemoglobin 30.1 pg (28.0-32.0); Mean Corpuscular Hgb Conc. 32.9 g/dL (32.0-36.0); Mean Corpuscular Volume 91.3 fL (80.0-100.0); Monocytes # (auto) 0.4 10 ^3/uL (0-1.3); Monocytes % (auto) 5.6 % (0.0-12.0); Neutrophils % (auto) 79.4 % (37.0-80.0); Platelet Count (auto) 143 10^3/uL (140-450); Red Blood Cells 3.37 10^6/uL (4.5-5.90); Red Cell Distribution Width 14.7 % (11.8-14.3); White Blood Cell 6.3 10^3/uL (4.4-10.8)
--- NOTE | 2024-11-23 05:11 | DVH ---
CHEST RADIOGRAPH Indication: arrhythmia Technique: Single frontal view of the chest was obtained COMPARISON: XY CHEST PORTABLE on DOS: 09/25/24, XY CHEST PORTABLE on DOS: 07/18/24, XY CHEST PORTABLE o n DOS: 06/28/24, XY CHEST PORTABLE on DOS: 05/12/24, XY CHEST PORTABLE on DOS: 11/17/23 FINDINGS: Lines and Tubes: None Lungs: Mild congestion. Pleura: No effusion. No pneumothorax. Cardiomediastinal contours: Cardiomegaly Bones: Unremarkable IMPRESSION: Cardiomegaly. Mild pulmonary vascular congestion.
[2024-11-23 05:21] LABS: Alanine Aminotransferase 15 U/L (7-40); Albumin 3.6 g/dL (3.2-4.8); Alkaline Phosphatase 57 U/L (46-116); Anion Gap 6 (5-15); Aspartate Aminotransferase 19 U/L (<34); BUN/Creatinine Ratio 19.1 (10.0-20.0); Carbon Dioxide 27 mmol/L (20-31); Chloride 100 mmol/L (98-107); Glucose 95 mg/dL (74-106); Potassium 4.6 mmol/L (3.5-5.1)
[2024-11-23 05:22] LABS: Bilirubin, Total 0.5 mg/dL (0.2-1.0)
[2024-11-23 05:29] LABS: Blood Urea Nitrogen 30 mg/dL (9-23); Calcium 8.1 mg/dL (8.7-10.4); Sodium 133 mmol/L (136-145); Total Protein 5.6 g/dL (5.7-8.2)
[2024-11-23 05:55] LABS: Rapid Strep A Screen-Throat Negative
[2024-11-23 06:11] LABS: Rapid Influenza A Negative (Negative); Rapid Influenza B Negative (Negative)
[2024-11-23 06:12] LABS: COVID19 ANTIGEN SOFIA FIA NEGATIVE (NEGATIVE)
[2024-11-23 06:49] LABS: Urine Bacteria None Seen /hpf (None Seen)
--- NOTE | 2024-11-23 07:00 | ECG ---
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
[2024-11-23 07:01] LABS: Urine Blood Negative /uL (Negative); Urine Clarity Clear (Clear); Urine Color Light-Yellow (Yellow); Urine Protein, UAD Negative (Negative); Urine Specific Gravity 1.008 (1.001-1.035); Urine Squamous Epithelial Cell None Seen /hpf (<5); Urine Urobilinogen Normal (Negative); Urine WBC < 1 /HPF (0-3)
--- NOTE | 2024-11-23 07:01 | ECG ---
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
[2024-11-23] MEDS ORDERED: OMEP-411 PO (08:43)
[2024-11-23] MEDS ORDERED: GAB100C PO (08:43)
[2024-11-23] MEDS ORDERED: ONDANSETRON HCL 4 MG/2 ML VIAL IV PRN (08:45)
[2024-11-23] MEDS ORDERED: ENOXAPARIN SOD 40 MG/0.4 ML SYRINGE SC SCH (10:00)
[2024-11-23] MEDS: IPRATROPIUM BROM 0.5 MG/2.5ML INH SOL NEB SCH (10:01)
[2024-11-23] MEDS: ALBUTEROL SULF 2.5 MG/0.5ML(0.5%) NEB SOLN NEB SCH (10:02)
--- NOTE | 2024-11-23 10:14 | DVHHP2 ---
History of Present Illness Reason for Visit: SOB History of Present Illness Sim Hale is a 89-year-old male with past medical history of COPD, AFib, CHF, thyroid disease, and appendectomy who presents to the ED with shortness of breath and sore throat x1 day. Patient states that he use oxygen on and off at home 2 L via nasal cannula. Patient also states that he lives at home with his . He also endorses that he quit smoking in 1979, does not use illicit drugs or drinks. Patient denies any recent trauma or injury, recent sick contacts, recent travels, recent ingestion of spoiled food, chest pain, abdominal pain, nausea vomiting, diarrhea, fever, chills, lightheadedness, weakness, dizziness, or urin tanvir symptoms. Cardiovascular: AFIB, CHF Pulmonary: COPD Endocrine: Hypothyroidism Past Surgical History: Appendectomy Family History: Other (Both parents ) Smoke: Quit ALCOHOL: none Drugs: None Lives: with Family Domestic Violence: Neg Review of Systems ENT: Throat pain Respiratory: Shortness of breath Allergies: Coded Allergies: NO KNOWN ALLERGIES (Unverified , 05/08/23) Medications Current Medications Medications Dose Ordered Sig/Kalpana Route Start Time Stop Time Status Last Admin Dose Admin Ceftriaxone Sodium 50 ml @ 100 mls/hr DAILY@09 IV 11/23/24 09:00 UNV Azithromycin 250 ml @ 125 mls/hr DAILY IV 11/23/24 10:00 UNV Albuterol 2.5 mg Q4HWA [facility] 11/23/24 10:00 UNV Ipratropium [place] 0.5 mg Q4HWA [facility] 11/23/24 10:00 UNV Methylprednisolone Sodium Succinate 80 mg BID IV 11/23/24 10:00 UNV Ondansetron HCl 4 mg Q4HP PRN IV 11/23/24 08:45 UNV Enoxaparin Sodium 40 mg DAILY SC 11/23/24 10:00 UNV Acetaminophen 650 mg Q6HP PRN PO 11/23/24 08:45 UNV Apixaban 2.5 mg BID PO 11/23/24 10:00 UNV Montelukast Sodium 10 mg DAILY PO 11/23/24 10:00 UNV Tamsulosin HCl 0.4 mg DAILY PO 11/23/24 10:00 UNV Patient Own Medication 1 mg DAILY PO 11/23/24 10:00 UNV Patient Own Medication 40 mg DAILY PO 11/23/24 10:00 UNV Exam Vital Signs Vital Signs Date Time Temp Pulse Resp B/P (MAP) Pulse Ox O2 Delivery O2 Flow Rate FiO2 11/23/24 08:05 97.9 87 13 98/77 (84) 96 97.9 11/23/24 08:05 Room Air* 0 21 General Appearance: Alert, Oriented X3, Cooperative, No acute distress HEENT: Atraumatic, PERRLA, EOMI, Mucous membr. moist/pink Respiratory: Normal air movement Cardiovascular: Regular rate, Normal S1, Normal S2 Abdominal: Normal bowel sounds, Soft Extremities: Other (Erythema noted in lower extremities bilateral) Neuro: Normal speech, Normal tone, Sensation intact Psych/Mental Status: Mental status NL, Mood NL Labs/Xrays Labs Test 11/23/24 07:48 11/23/24 06:37 11/23/24 05:15 11/23/24 05:14 Range/Units Troponin I High Sensitivity 49 </=54 ng/L Urine Color Light-yellow Yellow Urine Clarity Clear Clear Urine pH 5.0 5.0-9.0 Urine Specific [place] 1.008 1.001-1.035 Urine Protein Negative Negative Urine Ketones Negative Negative Urine Blood Negative Negative /uL Urine Nitrite Negative Negative Urine Bilirubin Negative Negative Urine Urobilinogen Normal Negative mg/dL Urine Leukocyte Esterase Negative Negative /uL Urine RBC None seen 0 - 3 /hpf Urine Microscopic WBC < 1 0-3 /HPF Urine Squamous Epithelial Cells None seen <5 /hpf Urine Bacteria None seen None Seen /hpf Urine Glucose Normal Normal mg/dL Group A Streptococcus Rapid Negative Influenza Type A Antigen Negative Negative Influenza Type B Antigen Negative Negative SARS-CoV-2 Antigen (Rapid) Negative NEGATIVE Test 11/23/24 04:51 Range/Units White Blood Count 6.3 4.4-10.8 10^3/uL Red Blood Count 3.37 L 4.5-5.90 10^6/uL Hemoglobin 10.1 L 13.5-17.5 g/dL Hematocrit 30.8 L 41.0-53.0 % Mean Corpuscular Volume 91.3 80.0-100.0 fL Mean Corpuscular Hemoglobin 30.1 28.0-32.0 pg Mean Corpuscular Hemoglobin Concent 32.9 32.0-36.0 g/dL Red Cell Distribution Width 14.7 H 11.8-14.3 % Platelet Count 143 140-450 10^3/uL Mean Platelet Volume 7.6 6.9-10.8 fL Neutrophils (%) (Auto) 79.4 37.0-80.0 % Lymphocytes (%) (Auto) 13.1 10.0-50.0 % Monocytes (%) (Auto) 5.6 0.0-12.0 % Eosinophils (%) (Auto) 1.2 0.0-7.0 % Basophils (%) (Auto) 0.7 0.0-2.0 % Neutrophils # (Auto) 5.0 1.6-8.6 10 ^3/uL Lymphocytes # (Auto) 0.8 0.4-5.4 10 ^3/uL Monocytes # (Auto) 0.4 0-1.3 10 ^3/uL Eosinophils # (Auto) 0.1 0-0.8 10 ^3/uL Basophils # (Auto) 0 0-0.2 10 ^3/uL Nucleated Red Blood Cells 0.0 % D-Dimer, Quantitative 0.67 H 0.0-0.49 mg/L FEU Sodium Level 133 L 136-145 mmol/L Potassium Level 4.6 3.5-5.1 mmol/L Chloride Level 100 98-107 mmol/L Carbon Dioxide Level 27 20-31 mmol/L Anion Gap 6 5-15 Blood Urea Nitrogen 30 H 9-23 mg/dL Creatinine 1.57 H 0.700-1.30 mg/dL Glomerular Filtration Rate Calc 42 >90 mL/min BUN/Creatinine Ratio 19.1 10.0-20.0 Serum Glucose 95 74-106 mg/dL Calcium Level 8.1 L 8.7-10.4 mg/dL Total Bilirubin 0.5 0.2-1.0 mg/dL Aspartate Amino Transferase (AST) 19 <34 U/L Alanine Aminotransferase (ALT) 15 7-40 U/L Alkaline Phosphatase 57 46-116 U/L B-Type Natriuretic Peptide 201.13 0-100 pg/mL Total Protein 5.6 L 5.7-8.2 g/dL Albumin 3.6 3.2-4.8 g/dL CHEST RADIOGRAPH Indication: arrhythmia Technique: Single frontal view of the chest was obtained COMPARISON: XY CHEST PORTABLE on DOS: 09/25/24, XY CHEST PORTABLE on DOS: 07/18/24, XY CHEST PORTABLE on DOS: 06/28/24, XY CHEST PORTABLE on DOS: 05/12/24, XY CHEST PORTABLE on DOS: 11/17/23 FINDINGS: Lines and Tubes: None Lungs: Mild congestion. Pleura: No effusion. No pneumothorax. Cardiomediastinal contours: Cardiomegaly Bones: Unremarkable IMPRESSION: Cardiomegaly. Mild pulmonary vascular congestion. Assessment/Plan Assessment/Plan Assessment Anemia Acute hypoxic respiratory failure Acute on chronic COPD exacerbation Acute pharyngitis Pulmonary vascular congestion likely due to pneumonia Hyponatremia AYDEN History of AFib History of CHF History of hypothyroidism History of appendectomy Plan Admit to [facility] IV antibiotics-ceftriaxone + azithromycin IV steroids Duo nebs Antiemetics Pain management Nose and Throat culture COVID negative Flu negative Strep negative Troponin noted negative x2 EKG BNP Chest x-ray noted UA D-dimer Lozenges Diuretics Strict I&Os Daily weight Bilateral lower extremity ultrasound venous Diet Home medications reconciled DVT prophylaxis-Lovenox PUD prophylaxis-PPIs Discussed plan of care with patient and nurse Plan discussed with: Patient My Orders Orders - FELICITY ORTIZ [employer]PERVIS[employer]WORK[employer] Procedure Category Date Status Time Throat Lozenges PHA 11/23/24 Logged (Cepastat Lozenges) 08:45 Ceftriaxone 1gm/50ml PHA 11/23/24 Logged D5w (Rocephin) 09:00 Azithromycin 500mg/ PHA 11/23/24 Logged 250ml (Zithromax 50 10:00 Albuterol Medneb PHA 11/23/24 Logged (Ventolin Medneb) 10:00 Ipratropium Medneb PHA 11/23/24 Logged (Atrovent Medneb) 10:00 Methylprednisolone PHA 11/23/24 Logged Sod Succ (Solu Medrol 10:00 Admit ADMIT 11/23/24 Transmitted 08:40 Allergies ERICH 11/23/24 In Process 08:40 Code Status CODE 11/23/24 Transmitted 08:40 Ondansetron Hcl PHA 11/23/24 Logged (Zofran) 08:45 Enoxaparin Sodium PHA 11/23/24 Logged (Lovenox) 10:00 Complete Blood Count LAB 11/24/24 Verified 04:00 Comprehensive LAB 11/24/24 Verified Metabolic Panel 04:00 Cardiac DIET 11/23/24 Transmitted Diet-2gna,Lofat,Lochol Breakfast Acetaminophen Tablet PHA 11/23/24 Logged (Tylenol Tablet) 08:45 Apixaban (Eliquis) PHA 11/23/24 Logged 10:00 Montelukast Tablet PHA 11/23/24 Logged (Singulair Tablet) 10:00 Tamsulosin PHA 11/23/24 Logged Hydrochloride (Flomax) 10:00 (Nf) Levothyroxine PHA 11/23/24 Logged Sodium 10:00 (Nf) Omeprazole ([facility] PHA 11/23/24 Transmitted Omeprazole Odt) 10:00 Furosemide Injection PHA 11/23/24 Verified (Lasix Injection) 10:00 Date of Service: Nov 23, 2024 Billing Provider: FELICITY ORTIZ Common Visit Codes: [id number] INP/OBS CARE (HIGH) FELICITY ORTIZ Nov 23, 2024 10:14
[2024-11-23] MEDS ORDERED: PANTOPRAZOLE 40 MG/10 ML VIAL INJ IV SCH (10:15)
[2024-11-23] MEDS: PANTOPRAZOLE 40 MG TAB PO SCH (11:13)
[2024-11-23] MEDS: methylPREDNISolone SOD SUCC 125 MG/2 ML VL IV SCH (11:13)
[2024-11-23] MEDS: FUROSEMIDE 40 MG/4 ML VIAL IV SCH (11:14)
[2024-11-23] MEDS: APIXABAN 5 MG TAB PO SCH (11:14)
[2024-11-23] MEDS: TAMSULOSIN HYDROCHLORIDE 0.4 MG CAP PO SCH (11:15)
[2024-11-23] MEDS: THROAT LOZENGES(CEPASTAT) MT ONE (11:18)
--- NOTE | 2024-11-23 11:53 | DVH ---
Bilateral lower extremity venous duplex Clinical History: r/o dvt Comparison: None Technique: Duplex Doppler evaluation of the deep venous systems of both lower extremities from the common femora l veins to the popliteal veins including color Doppler and spectral/pulsed waveform analysis was perf ormed. Findings: RIGHT SIDE: The common femoral vein demonstrates appropriate compressibility and waveform variability. There is compressibility/patency of the great saphenous vein at the proximal thigh. The femoral vein demonstrates appropriate compressibility and waveform variability. The deep femoral vein demonstrates appropriate compressibility and waveform variability. The popliteal vein demonstrates appropriate compressibility and waveform variability. There is normal compressibility at the tibioperoneal trunk. LEFT SIDE: The common femoral vein demonstrates appropriate compressibility and waveform variability. There is compressibility/patency of the great saphenous vein at the proximal thigh. The femoral vein demonstrates appropriate compressibility and waveform variability. The deep femoral vein demonstrates appropriate compressibility and waveform variability. The popliteal vein demonstrates appropriate compressibility and waveform variability. There is normal compressibility at the tibioperoneal trunk. Impression: No right or left femoropopliteal venous thrombosis. 3 cm left Escobar's cyst
[2024-11-23] MEDS: AZITHROMYCIN 500MG/ 250ML 250 ML IV SCH (12:52)
[2024-11-23] MEDS: ACETAMINOPHEN 325 MG TAB PO PRN (20:32)
[2024-11-23] MEDS: MONTELUKAST SODIUM 10 MG TAB PO SCH (22:03)
[2024-11-24] VITALS (21 sets, daily range): BP systolic 105–125; BP diastolic 58–82; PULSE 81–91; RESP 14–20; TEMP 97.7–98.7; O2SAT 95–100
[2024-11-24 07:36] LABS: Basophils # (auto) 0 10 ^3/uL (0-0.2); Eosinophils # (auto) 0 10 ^3/uL (0-0.8); Hematocrit 31.1 % (41.0-53.0); Hemoglobin 10.4 g/dL (13.5-17.5); Lymphocytes # (auto) 0.2 10 ^3/uL (0.4-5.4); Mean Corpuscular Hemoglobin 30.3 pg (28.0-32.0); Mean Corpuscular Hgb Conc. 33.3 g/dL (32.0-36.0); Monocytes # (auto) 0.1 10 ^3/uL (0-1.3); Monocytes % (auto) 1.9 % (0.0-12.0); Neutrophils # (auto) 4.2 10 ^3/uL (1.6-8.6); Neutrophils % (auto) 94.1 % (37.0-80.0); Platelet Count (auto) 138 10^3/uL (140-450); Red Blood Cells 3.42 10^6/uL (4.5-5.90); Red Cell Distribution Width 14.9 % (11.8-14.3); White Blood Cell 4.5 10^3/uL (4.4-10.8)
[2024-11-24 08:04] LABS: Alanine Aminotransferase 18 U/L (7-40); Alkaline Phosphatase 60 U/L (46-116); Anion Gap 10 (5-15); BUN/Creatinine Ratio 15.4 (10.0-20.0); Carbon Dioxide 23 mmol/L (20-31); Chloride 99 mmol/L (98-107)
[2024-11-24 08:05] LABS: Albumin 3.8 g/dL (3.2-4.8)
[2024-11-24 08:06] LABS: Aspartate Aminotransferase 24 U/L (<34); Bilirubin, Total 0.5 mg/dL (0.2-1.0)
[2024-11-24 08:16] LABS: Blood Urea Nitrogen 26 mg/dL (9-23); Glucose 110 mg/dL (74-106); Potassium 5.4 mmol/L (3.5-5.1); Sodium 132 mmol/L (136-145)
[2024-11-24] MEDS: cefTRIAXone 1GM/50ML D5W 50 ML IV SCH (09:30)
[2024-11-24] MEDS: FUROSEMIDE 40 MG/4 ML VIAL IV SCH (09:30)
[2024-11-24] MEDS: LEVOTHYROXINE SODIUM 25 MCG TAB PO SCH (09:32)
--- NOTE | 2024-11-24 11:50 | DVHPN2 ---
Subjective Seen and examined at bedside, feeling better. Will be discharged in AM. Changes from previous H/P or p: No Changes ENT: Throat pain Respiratory: Shortness of breath Objective Vitals Vital Signs Date Time Temp Pulse Resp B/P (MAP) Pulse Ox O2 Delivery O2 Flow Rate FiO2 11/24/24 10:51 85 18 99 11/24/24 10:45 Room Air* 0 21 11/24/24 09:30 128/65 11/24/24 09:00 98.7 98.7 Intake/Output Intake and Output 11/24/24 07:00 Intake Total 1630 ml Output Total 2050 ml Balance -420 ml Intake Oral 1380 ml IV Total 250 ml Output Urine Total 2050 ml # Bowel Movements 1 General Appearance: Alert, Oriented X3, Cooperative Lungs: Clear to auscultation Cardiovascular: Regular rate, Normal S1, Normal S2 Abdomen: Normal bowel sounds, Soft Psych/Mental Status: Mental status NL Medications Current Medications Medications Dose Ordered Sig/Kalpana Route Start Time Stop Time Status Last Admin Dose Admin Ceftriaxone Sodium 50 ml @ 100 mls/hr DAILY@09 IV 11/24/24 09:00 11/24/24 09:30 100 MLS/HR Azithromycin 250 ml @ 125 mls/hr DAILY IV 11/23/24 10:00 11/24/24 09:31 125 MLS/HR Albuterol 2.5 mg Q4HWA NEB 11/23/24 10:00 11/24/24 10:45 2.5 MG Ipratropium [place] 0.5 mg Q4HWA NEB 11/23/24 10:00 11/24/24 10:44 0.5 MG Methylprednisolone Sodium Succinate 80 mg BID IV 11/23/24 10:00 11/24/24 09:31 80 MG Ondansetron HCl 4 mg Q4HP PRN IV 11/23/24 08:45 Acetaminophen 650 mg Q6HP PRN PO 11/23/24 08:45 11/23/24 20:32 650 MG Apixaban 2.5 mg BID PO 11/23/24 10:00 11/24/24 09:32 2.5 MG Montelukast Sodium 10 mg HS PO 11/23/24 22:00 11/23/24 22:03 10 MG Tamsulosin HCl 0.4 mg DAILY PO 11/23/24 10:00 11/24/24 09:32 0.4 MG Levothyroxine Sodium 75 mcg DAILY PO 11/24/24 10:00 11/24/24 09:32 75 MCG Pantoprazole Sodium 40 mg DAILY PO 11/23/24 10:00 11/24/24 09:32 40 MG Furosemide 40 mg DAILY IV 11/24/24 10:00 11/24/24 09:30 40 MG Laboratory Results Laboratory Tests 11/24/24 06:57 Chemistry Test 11/24/24 06:57 Albumin 3.8 g/dL (3.2-4.8) Calcium Level 9.0 mg/dL (8.7-10.4) Total Protein 6.0 g/dL (5.7-8.2) LFT Test 11/24/24 06:57 Alanine Aminotransferase (ALT) 18 U/L (7-40) Alkaline Phosphatase 60 U/L (46-116) Aspartate Amino Transferase (AST) 24 U/L (<34) Total Bilirubin 0.5 mg/dL (0.2-1.0) Urinalysis Test 11/23/24 06:37 Urine Color Light-yellow (Yellow) Urine Clarity Clear (Clear) Urine pH 5.0 (5.0-9.0) Urine Specific [place] 1.008 (1.001-1.035) Urine Protein Negative (Negative) Urine Ketones Negative (Negative) Urine Blood Negative /uL (Negative) Urine Nitrite Negative (Negative) Urine Bilirubin Negative (Negative) Urine Urobilinogen Normal mg/dL (Negative) Urine Leukocyte Esterase Negative /uL (Negative) Urine RBC None seen /hpf (0 - 3) Urine Microscopic WBC < 1 /HPF (0-3) Urine Squamous Epithelial Cells None seen /hpf (<5) Urine Bacteria None seen /hpf (None Seen) Urine Glucose Normal mg/dL (Normal) Microbiology Microbiology Date/Time Source Procedure Growth Status 11/23/24 05:15 Throat Nose/Throat Culture - Preliminary Resulted Assessment/Plan Assessment/Plan Acute hypoxic respiratory failure- Improving Acute on chronic COPD exacerbation- Change to Prednisone Pulmonary vascular congestion but Pel Edema- Lasix AYDEN on CKD3a- Monitor Acute Systolic CHF- EF 35-40% Plan discussed with: Patient My Orders Orders - HARSHA CRUZ MD Procedure Category Date Status Time Furosemide Injection PHA 11/25/24 Transmitted (Lasix Injection) 10:00 Azithromycin Tablet PHA 11/25/24 Transmitted (Zithromax Tablet) 10:00 Prednisone Tablet PHA 11/25/24 Verified 10:00 Basic Metabolic Panel LAB 11/25/24 Verified 04:00 B-Type Natriuretic LAB 11/25/24 Verified Peptide 04:00 Date of Service: Nov 24, 2024 Billing Provider: HARSHA CRUZ MD Common Visit Codes: [id number] INP/OBS CARE(HIGH) HARSHA CRUZ MD Nov 24, 2024 11:50
[2024-11-24] MEDS: SODIUM ZIRCONIUM CYCL 10 GM PAK PO ONE (11:56)
[2024-11-24] MEDS ORDERED: IPRATROPIUM BROM 0.5 MG/2.5ML INH SOL NEB PRN (15:30)
[2024-11-24] MEDS: LACTULOSE 20Gm/30ML SOLN PO ONE (15:37)
[2024-11-24] MEDS: FUROSEMIDE 20 MG/2 ML VIAL IV ONE (15:38)
[2024-11-24] MEDS: ALBUTEROL SULF 2.5 MG/0.5ML(0.5%) NEB SOLN NEB PRN (16:03)
[2024-11-24] MEDS: ALBUTEROL SULF 2.5 MG/0.5ML(0.5%) NEB SOLN ONE (16:05)
[2024-11-24] MEDS: MELATONIN 5 MG TAB PO ONE (22:36)
[2024-11-25] VITALS (11 sets, daily range): BP systolic 109–117; BP diastolic 68–74; PULSE 72–92; RESP 18–20; TEMP 97.7–97.8; O2SAT 97–100
[2024-11-25 07:00] LABS: Potassium 4.4 mmol/L (3.5-5.1)
[2024-11-25 07:01] LABS: Anion Gap 7 (5-15); Calcium 8.7 mg/dL (8.7-10.4); Carbon Dioxide 30 mmol/L (20-31)
[2024-11-25 07:06] LABS: BUN/Creatinine Ratio 17.6 (10.0-20.0); Glucose 91 mg/dL (74-106)
[2024-11-25 07:14] LABS: Blood Urea Nitrogen 30 mg/dL (9-23); Chloride 96 mmol/L (98-107); Sodium 133 mmol/L (136-145)
[2024-11-25] MEDS: AZITHROMYCIN 250 MG TAB PO SCH (08:27)
[2024-11-25] MEDS: FUROSEMIDE 20 MG/2 ML VIAL IV SCH (08:27)
[2024-11-25] MEDS: predniSONE 20 MG TAB PO SCH (08:27)
[2024-11-25] MEDS ORDERED: PRED20TA2 PO (11:17)
[2024-11-25] MEDS ORDERED: AZIT-43 PO (11:17)
[2024-11-25] MEDS ORDERED: AUG875T PO (11:17)
--- NOTE | 2024-11-25 11:19 | DVHDS2 ---
Discharge Summary Date of Admission Nov 23, 2024 at 08:40 Date of Discharge: Nov 25, 2024 Admitting Diagnosis Acute hypoxic respiratory failure Labs/Diagnostic Data: Laboratory Results Test 11/25/24 06:13 11/24/24 06:57 11/23/24 07:48 11/23/24 06:37 Sodium Level 133 mmol/L (136-145) Potassium Level 4.4 mmol/L (3.5-5.1) Chloride Level 96 mmol/L (98-107) Carbon Dioxide Level 30 mmol/L (20-31) Anion Gap 7 (5-15) Blood Urea Nitrogen 30 mg/dL (9-23) Creatinine 1.70 mg/dL (0.700-1.30) Glomerular Filtration Rate Calc 39 mL/min (>90) BUN/Creatinine Ratio 17.6 (10.0-20.0) Serum Glucose 91 mg/dL (74-106) Calcium Level 8.7 mg/dL (8.7-10.4) B-Type Natriuretic Peptide 261.70 pg/mL (0-100) White Blood Count 4.5 10^3/uL (4.4-10.8) Red Blood Count 3.42 10^6/uL (4.5-5.90) Hemoglobin 10.4 g/dL (13.5-17.5) Hematocrit 31.1 % (41.0-53.0) Mean Corpuscular Volume 91.0 fL (80.0-100.0) Mean Corpuscular Hemoglobin 30.3 pg (28.0-32.0) Mean Corpuscular Hemoglobin Concent 33.3 g/dL (32.0-36.0) Red Cell Distribution Width 14.9 % (11.8-14.3) Platelet Count 138 10^3/uL (140-450) Mean Platelet Volume 7.8 fL (6.9-10.8) Neutrophils (%) (Auto) 94.1 % (37.0-80.0) Lymphocytes (%) (Auto) 4.0 % (10.0-50.0) Monocytes (%) (Auto) 1.9 % (0.0-12.0) Eosinophils (%) (Auto) 0.0 % (0.0-7.0) Basophils (%) (Auto) 0.0 % (0.0-2.0) Neutrophils # (Auto) 4.2 10 ^3/uL (1.6-8.6) Lymphocytes # (Auto) 0.2 10 ^3/uL (0.4-5.4) Monocytes # (Auto) 0.1 10 ^3/uL (0-1.3) Eosinophils # (Auto) 0 10 ^3/uL (0-0.8) Basophils # (Auto) 0 10 ^3/uL (0-0.2) Nucleated Red Blood Cells 0.0 % Total Bilirubin 0.5 mg/dL (0.2-1.0) Aspartate Amino Transferase (AST) 24 U/L (<34) Alanine Aminotransferase (ALT) 18 U/L (7-40) Alkaline Phosphatase 60 U/L (46-116) Total Protein 6.0 g/dL (5.7-8.2) Albumin 3.8 g/dL (3.2-4.8) Troponin I High Sensitivity 49 ng/L (</=54) Urine Color Light-yellow (Yellow) Urine Clarity Clear (Clear) Urine pH 5.0 (5.0-9.0) Urine Specific [place] 1.008 (1.001-1.035) Urine Protein Negative (Negative) Urine Ketones Negative (Negative) Urine Blood Negative /uL (Negative) Urine Nitrite Negative (Negative) Urine Bilirubin Negative (Negative) Urine Urobilinogen Normal mg/dL (Negative) Urine Leukocyte Esterase Negative /uL (Negative) Urine RBC None seen /hpf (0 - 3) Urine Microscopic WBC < 1 /HPF (0-3) Urine Squamous Epithelial Cells None seen /hpf (<5) Urine Bacteria None seen /hpf (None Seen) Urine Glucose Normal mg/dL (Normal) Test 11/23/24 05:15 11/23/24 05:14 11/23/24 04:51 Group A Streptococcus Rapid Negative Influenza Type A Antigen Negative (Negative) Influenza Type B Antigen Negative (Negative) SARS-CoV-2 Antigen (Rapid) Negative (NEGATIVE) D-Dimer, Quantitative 0.67 mg/L FEU (0.0-0.49) Other Laboratory Tests 11/25/24 06:13 11/24/24 06:57 Brief Hx & Hospital Course: Sim Hale is a 89-year-old male with past medical history of COPD, AFib, CHF, thyroid disease, and appendectomy who presents to the ED with shortness of breath and sore throat x1 day. Patient states that he use oxygen on and off at home 2 L via nasal cannula. Patient was treated with Zithromax and Rocephin and Lasix. Nose and throat culture is growing E.Coli. Patient will be discharged with Augmentin and Zithromax. I spoke with the patients spouse over the phone, advised to followup with [facility] in 1 week. Condition at Discharge: Poor Final Diagnosis/Problems List Acute hypoxic respiratory failure- Resolved E.Coli in Throat- Augmentin Acute on chronic COPD exacerbation- Change to Prednisone Pulmonary vascular congestion Pulm Edema- Lasix AYDEN on CKD3a- Monitor Acute Systolic CHF- EF 35-40% Discharge Disposition: Home Discharge Instruct/Medications Diet: Regular Activity: Light activity Follow Up/Referral: [facility] PCP in 1 week Medications: See [facility] Discharge Statement: "Patient was advised to return to the ER or call 911 if any headaches, dizziness, shortness of breath, chest pain, abdominal pain, bleeding, fevers, or worsening of medical condition. Patient was counseled about treatment plan, medications, possible side effects, patientverbalized understanding. All questions were answered to the best of my ability. This discharge took greater then 30 minutes in planning, reviewing documentation, counseling the patient, and discussing with other team members." ASSESSMENT ASSESSMENT Assessment Date of Service: Nov 25, 2024 Billing Provider: HARSHA CRUZ MD Common Visit Codes: 67530-RUX/OBS DISCH DAY >30min HARSHA CRUZ MD Nov 25, 2024 11:19
== END 2024-11-25 14:52 | disposition home or self-care (01) | DRG 177 ==
LOC: ER 04:02 → EDBD 04:02 → OVERFLOW 08:40 → EAST 15:20
PROVIDERS: ATTEND Internal Medicine
DX: J15.69 Pneumonia due to other Gram-negative bacteria (principal); I50.21 Acute systolic (congestive) heart failure; J96.01 Acute respiratory failure with hypoxia; J44.1 Chronic obstructive pulmonary disease with (acute) exacerbation; N17.9 Acute kidney failure, unspecified; J44.0 Chronic obstructive pulmonary disease with (acute) lower respiratory infection; E87.1 Hypo-osmolality and hyponatremia; J15.9 Unspecified bacterial pneumonia; E03.9 Hypothyroidism, unspecified; B96.20 Unspecified Escherichia coli [E. coli] as the cause of diseases classified elsewhere; N18.31 Chronic kidney disease, stage 3a; D64.9 Anemia, unspecified; Z20.822 Contact with and (suspected) exposure to COVID-19; I48.91 Unspecified atrial fibrillation; Z87.891 Personal history of nicotine dependence; Z90.49 Acquired absence of other specified parts of digestive tract
CPT/HCPCS: 36415; 71045; 80048; 80053; 81001; 83880; 84484; 85025; 85379; 87070; 87077; 87186; 87426; 87804; 87880; 93005; 93970; 94640; 96365; 96375; 99291; G0378

== ENCOUNTER 2024-12-23 15:16 | Emergency (ER) | payer OTHER ==
[~2024-12-23] VITALS: Ht 160 cm; Wt 72.7 kg
[~2024-12-23 15:16] MED LIST changes: +AUG875T PO; +AZIT-43 PO; -BACDST PO; -CLIN-203 PO; +GAB100C PO; +PRED20TA2 PO
[2024-12-23 15:20] VITALS: PULSE 96; RESP 23; O2SAT 92
--- NOTE | 2024-12-23 15:27 | ECG ---
[facility] Test Date: 2024-12-23 Test Time: 15:20:24 Pat Name: MAURO CASTILLO Department: ED Room: Gender: M River Guide: GV : [id number] Requested By: SHAINA SCHULTZ Order Number: [id number] Reading MD: Seth Slaughter Measurements Intervals [place] Rate: 97 P: 0 [place]: 0 QRS: 138 QRSD: 108 T: 21 QT: 404 QTc: 513 Interpretive Statements Atrial fibrillation Ventricular premature complex Probable right ventricular hypertrophy Borderline T abnormalities, lateral leads Borderline ST elevation, anterolateral leads Electronically Signed On 12-26-2024 17:48:31 PDT by Seth Slaughter Please click the below link to view image of tracing.
--- NOTE | 2024-12-23 15:28 | ED.PDOC ---
SOB-HPI HPI Comments 89 y/o M, BIBA, with PMHx of COPD, CHF, and AFib presents to the ED for CC of shortness of breath. EMS reports, patient is coming from home where he c/o shortness of breath with associated chest pain onset, today (12/23/24). Patient reports, that he gave himself a breathing Tx at home which provided no relief. Patient was given, an additional breathing Tx in route with no change in symptoms. Patient denies fever, chills, cough, palpitations, weakness, or numbness. No other symptoms or modifying factors present at this time. Per EMS, patient stated he took 4 Lasix pills at home prior to their arrival. Vital signs were stable. Chief Complaint: Shortness of Breath Time Seen by MD: 15:20 Primary Care Provider: IRA Mcdaniel notes: Nurses Notes, Roll Weigher Notes, Medications, Allergies Information Source: Patient, Emergency Med Personnel Mode of Arrival: EMS Severity: Moderate Timing: Hours Duration: Since onset Context: At Rest PE Risk Factors: None History of: COPD, CHF Prehospital treatment: None Modifying Factors: Nothing Associated Signs and Symptoms: None Quality: Tightness Past Medical History PAST MEDICAL HISTORY: AFIB, CHF, COPD, Thyroid Surgical History: Appendectomy Family History Family History: Reviewed,noncontributory to illness Social History Smoker: Quit Greater Than 1 Year, Cigarettes Alcohol: Denies ETOH Use Drugs: Denies Drug Use Lives In: Home Constitutional: denies: chills, diaphoresis, fatigue, fever, malaise, sweats, weakness, others EENTM: denies: blurred vision, double vision, ear bleeding, ear discharge, ear drainage, ear pain, ear ringing, eye pain, eye redness, hearing loss, mouth pain, mouth swelling, nasal discharge, nose bleeding, nose congestion, nose pain, photophobia, tearing, throat pain, throat swelling, voice changes, others Respiratory: reports: shortness of breath; denies: cough, hemoptysis, orthopnea, SOB at rest, SOB with excertion, stridor, wheezing, others Cardiovascular: reports: chest pain; denies: dizzy spells, diaphoresis, Dyspnea on exertion, edema, irregular heart beat, left arm pain, lightheadedness, palpitations, PND, syncope, others Gastrointestinal: denies: abdomen distended, abdominal pain, blood streaked bowels, constipated, diarrhea, dysphagia, difficulty swallowing, hematemesis, melena, nausea, poor appetite, poor fluid intake, rectal bleeding, rectal pain, vomiting, others Genitourinary: denies: burning, dysuria, flank pain, frequency, hematuria, inc ontinence, penile discharge, penile sore, pain, testicle pain, testicle swelling, urgency, others Neurological: denies: dizziness, fainting, headache, left sided numbness, left sided weakness, numbness, paresthesia, pre-existing deficit, right sided numbness, right sided weakness, seizure, speech problems, tingling, tremors, weakness, others Musculoskeletal: denies: back pain, gout, joint pain, joint swelling, muscle pain, muscle stiffness, neck pain, others Integumetry: denies: bruises, change in color, change in hair/nails, dryness, laceration, lesions, lumps, rash, wounds, others Allergic/Immunocompromised: denies: Difficulty Healing, Frequent Infections, Hives, Itching, others Hematologic/Lymphatic: denies: anemia, blood clots, easy bleeding, easy bruising, swollen glands, others Endocrine: denies: excessive hunger, excessive sweating, excessive thirst, excessive urination, flushing, intolerance to cold, intolerance to heat, unexplained weight gain, unexplained weight loss, others Psychiatric: denies: anxiety, bipolar disorder, depression, hopeless, panic disorder, schizophrenia, sleepless, suicidal, others All Other Systems: Reviewed and Negative Physical Exam General Appearance: Moderate Distress (Hrae-ve-godvcaka distress due to shortness a breath concerns. Patient appears to be in poor overall health.), Normal HEENT: Normal ENT Inspection, Pharynx Normal, TMs Normal Neck: Full Range of Motion, Non-Tender, Normal, Normal Inspection Respiratory: Other (Patchy wheezes and rhonchi appreciated globally in bilateral lung leblanc. No signs of respiratory distress. No accessory muscle use.) Cardiovascular: Irregular, No Edema, No JVD, No Murmur, No Gallop, Normal Peripheral Pulses Breast Exam: Deferred Gastrointestinal: No Organomegaly, Non Tender, No Pulsatile Mass, Normal Bowel Sounds, Soft Genitalia: Deferred Pelvic: Deferred Rectal: Deferred Extremities: No calf tenderness, Normal capillary refill Neurologic: Alert Cerebellar Function: NOT DONE Reflexes: NOT DONE Skin: Dry, Normal Color, Warm Lymphatic: No Adenopathy Was a procedure done? Was a procedure done?: No Differential Dx Differential Diagnosis: Bronchitis, CHF, COPD, Myocardial infarction, Pneumonia, Pulmonary Embolism, URI X-Ray, Labs, Meds, VS Vital Signs Date Time Temp Pulse Resp B/P (MAP) Pulse Ox O2 Delivery O2 Flow Rate FiO2 12/23/24 18:00 94 18 110/52 (71) 94 12/23/24 17:00 93 32 117/57 (77) 94 12/23/24 16:00 97.9 93 19 96/57 (70) 94 97.9 12/23/24 15:43 18 93 Nasal Cannula* 2 28 12/23/24 15:40 98.2 96 23 105/60 (75) 94 98.2 12/23/24 15:26 98.9 88 18 114/78 (90) 100 98.9 12/23/24 15:20 96 23 92 Room Air* 0 21 12/23/24 15:20 97 Lab Test 12/23/24 17:10 12/23/24 15:43 Range/Units Urine Color Colorless Yellow Urine Clarity Clear Clear Urine pH 5.0 5.0-9.0 Urine Specific [place] 1.008 1.001-1.035 Urine Protein Negative Negative Urine Ketones Negative Negative Urine Blood Negative Negative /uL Urine Nitrite Negative Negative Urine Bilirubin Negative Negative Urine Urobilinogen Normal Negative mg/dL Urine Leukocyte Esterase Negative Negative /uL Urine RBC 1 0 - 3 /hpf Urine Microscopic WBC 1 0-3 /HPF Urine Squamous Epithelial Cells None seen <5 /hpf Urine Bacteria None seen None Seen /hpf Urine Glucose Normal Normal mg/dL Troponin I High Sensitivity 31 32 </=54 ng/L White Blood Count 4.2 L 4.4-10.8 10^3/uL Red Blood Count 2.78 L 4.5-5.90 10^6/uL Hemoglobin 8.4 L 13.5-17.5 g/dL Hematocrit 26.0 L 41.0-53.0 % Mean Corpuscular Volume 93.6 80.0-100.0 fL Mean Corpuscular Hemoglobin 30.2 28.0-32.0 pg Mean Corpuscular Hemoglobin Concent 32.3 32.0-36.0 g/dL Red Cell Distribution Width 17.5 H 11.8-14.3 % Platelet Count 224 140-450 10^3/uL Mean Platelet Volume 7.6 6.9-10.8 fL Neutrophils (%) (Auto) 74.2 37.0-80.0 % Lymphocytes (%) (Auto) 14.4 10.0-50.0 % Monocytes (%) (Auto) 8.7 0.0-12.0 % Eosinophils (%) (Auto) 2.0 0.0-7.0 % Basophils (%) (Auto) 0.7 0.0-2.0 % Neutrophils # (Auto) 3.1 1.6-8.6 10 ^3/uL Lymphocytes # (Auto) 0.6 0.4-5.4 10 ^3/uL Monocytes # (Auto) 0.4 0-1.3 10 ^3/uL Eosinophils # (Auto) 0.1 0-0.8 10 ^3/uL Basophils # (Auto) 0 0-0.2 10 ^3/uL Nucleated Red Blood Cells 0.0 % Sodium Level 132 L 136-145 mmol/L Potassium Level 6.3 *H 3.5-5.1 mmol/L Chloride Level 107 98-107 mmol/L Carbon Dioxide Level 17 L 20-31 mmol/L Anion Gap 8 5-15 Blood Urea Nitrogen 63 H 9-23 mg/dL Creatinine 2.57 H 0.700-1.30 mg/dL Glomerular Filtration Rate Calc 23 >90 mL/min BUN/Creatinine Ratio 24.5 H 10.0-20.0 Serum Glucose 103 74-106 mg/dL Lactic Acid Level 0.8 0.4-2.0 mmol/L Calcium Level 7.4 L 8.7-10.4 mg/dL Total Bilirubin 0.2 0.2-1.0 mg/dL Aspartate Amino Transferase (AST) 22 13-40 U/L Alanine Aminotransferase (ALT) 18 7-40 U/L Alkaline Phosphatase 92 46-116 U/L B-Type Natriuretic Peptide 361.53 0-100 pg/mL Total Protein 5.4 L 5.7-8.2 g/dL Albumin 3.5 3.2-4.8 g/dL Lipase 50 12-53 U/L Current Medications Medications (Trade) Dose Ordered Sig/Kalpana Route Start Time Stop Time Status Last Admin Albuterol (Ventolin Medneb) 5 mg ONCE ONCE NEB 12/23/24 15:30 12/23/24 15:31 DC 12/23/24 15:42 Ipratropium [place] (Atrovent Medneb) 0.5 mg ONCE ONCE NEB 12/23/24 15:30 12/23/24 15:31 DC 12/23/24 15:42 Dexamethasone Sodium Phosphate (Decadron Injection) 10 mg ONCE ONCE IV 12/23/24 15:30 12/23/24 15:31 DC 12/23/24 16:23 Sodium Chloride 1,000 ml @ 150 mls/hr Q6H40M ONCE IV 12/23/24 15:30 12/23/24 22:09 12/23/24 16:31 Zirconium Oxide (Lokelma) 10 gm ONCE ONCE PO 12/23/24 16:30 12/23/24 16:31 DC 12/23/24 16:40 Calcium Gluconate 50 ml @ 100 mls/hr Q30M IV 12/23/24 16:45 12/23/24 17:44 DC 12/23/24 17:53 [place] [address] Ph: [phone] DIAGNOSTIC IMAGING Diagnostic Imaging Report : [id number] Signed PATIENT: MAURO CASTILLO ACCT: [id number] UNIT: [id number] : 1935 LOC: ER ROOM / BED: / AGE / SEX: 89 / M ADM STATUS: REG ER SERVICE 1525 ORDERING PHYSICIAN: SHAINA SCHULTZ PAC PROCEDURE(s): CXRP - CHEST PORTABLE REASON: Shortness of breath ORDER NUMBER(s): [id number], ACCESSION NUMBER(s): [id number] CHEST RADIOGRAPH Indication: Shortness of breath Technique: Single frontal view of the chest was obtained Comparison: XY CHEST PORTABLE on DOS: 11/23/24, XY CHEST PORTABLE on DOS: 09/25/24, XY CHEST PORTABLE on DOS: 07/18/24 FINDINGS: Lines and Tubes: None Lungs: No focal consolidation. Chronic Moderate elevation of the left hemidia phragm with bibasilar linear densities Pleura: No effusion. No pneumothorax. Cardiomediastinal contours: Ygep-gy-iwmlwdyg cardiomegaly Bones: No acute osseous abnormality. Gas-filled bowel is noted underneath the left hemidiaphragm which may represent a Large bowel. IMPRESSION: Chronic elevation of the left hemidiaphragm with bibasilar atelectasis. ATED BY: LAINA HESTER DO DICTATED DATE/TIME: 12/23/24 1608 SIGNED BY: LAINA HESTER DO SIGNED DATE/TIME: 12/23/24 1608 CC: X-Ray, Labs, Meds, VS Comment All studies performed in the ED were evaluated by me personally. Laboratories studies revealed mild anemia, hyponatremic state, hypokalemia, significant acute on chronic renal concerns as well as a CHF exacerbation. EKG revealed an atrial fibrillation with a rate of 97. Ventricular premature complex, probable right ventricular hypertrophy, borderline T-wave abnormalities in the lateral leads as well as borderline ST elevation in anterior lateral leads. QT interval of 404. Chest x-ray revealed chronic elevation of the left hemidiaphragm with bibasilar atelectasis. Patient will need to be admitted for a cardiac evaluation as well as management of his electrolytes and significant renal concerns. Patient is a [facility] patient and therefore, [facility] will be notified and patient will be transferred. Time of 1ST Reevaluation: 19:17 Reevaluation 1ST: Improved Consultation: PCP Patient Education/Counseling: Diagnosis, Treatment Family Education/Counseling: Diagnosis, Treatment, No Family Present SEPSIS Sepsis Screen Recent Procedure: No On Antibiotic Therapy: No Respiratory Rate >20: No Heart Rate >90: No Temp<36 C (96.8 F) or >38.3 C: No SBP <90 or MAP <65 mmHG: No New Acute Mental Status Change: No Is the patient on CPAP, BIPAP,: No Physician Orders Heplock Iv (12/23/24 ) Blood Culture (12/23/24 15:25) Sodium Chloride 0.9% (12/23/24 15:30) Troponin-I Hs (12/23/24 18:25) Continuous Ekg Monitoring 08,12,16,20,00,04 (12/23/24 15:25) Chest Portable (12/23/24 15:25) Vital Signs Date Time Temp Pulse Resp B/P (MAP) Pulse Ox O2 Delivery O2 Flow Rate FiO2 12/23/24 18:00 94 18 110/52 (71) 94 12/23/24 17:00 93 32 117/57 (77) 94 12/23/24 16:00 97.9 93 19 96/57 (70) 94 97.9 12/23/24 15:43 18 93 Nasal Cannula* 2 28 12/23/24 15:40 98.2 96 23 105/60 (75) 94 98.2 12/23/24 15:26 98.9 88 18 114/78 (90) 100 98.9 12/23/24 15:20 96 23 92 Room Air* 0 21 12/23/24 15:20 97 Laboratory Tests Test 12/23/24 15:43 Lactic Acid Level 0.8 mmol/L (0.4-2.0) White Blood Count 4.2 10^3/uL (4.4-10.8) L Medications Medications Dose Ordered Sig/Kalpana Route Start Time Stop Time Status Last Admin Dose Admin Albuterol 5 mg ONCE ONCE NEB 12/23/24 15:30 12/23/24 15:31 DC 12/23/24 15:42 Calcium Gluconate 50 ml @ 100 mls/hr Q30M IV 12/23/24 16:45 12/23/24 17:44 DC 12/23/24 17:53 Dexamethasone Sodium Phosphate 10 mg ONCE ONCE IV 12/23/24 15:30 12/23/24 15:31 DC 12/23/24 16:23 Ipratropium [place] 0.5 mg ONCE ONCE NEB 12/23/24 15:30 12/23/24 15:31 DC 12/23/24 15:42 Sodium Chloride 1,000 ml @ 150 mls/hr Q6H40M ONCE IV 12/23/24 15:30 12/23/24 22:09 12/23/24 16:31 Zirconium Oxide 10 gm ONCE ONCE PO 12/23/24 16:30 12/23/24 16:31 DC 12/23/24 16:40 Departure 1 Departure Time of Disposition: 19:37 Impression: Primary Impression: Afib Additional Impressions: Anemia Hyponatremia Acute renal failure superimposed on chronic kidney disease Acute exacerbation of CHF (congestive heart failure) Hyperkalemia Disposition: 02 SHORT TERM HOSPITAL Condition: Fair Discharged With: Self Critical Care Note Critical Care Time?: Yes (45 min-critical care time only) Critical care comment: Due to the high probability of a clinically significant and possibly life- threatening deterioration, this patient required my highest level of preparedness to intervene emergently and therefore, I personally provided 45 minutes of critical care time exclusive of time spent on separate billable procedures. This critical care time includes, but isn't limited to, obtaining additional history, re-examination of the patient, re-examination of pulse oximetry, ordering and reviewing of studies as well as arrangement of urgent treatment with the development of a long-term management plan, evaluation of the patient's response to treatment with frequent reassessments and discussions with other providers. Stability Stability form required: No Heart Score Heart Score: Heart Score Response (Comments) Value History Slightly Suspicious 0 EKG Repolarization Disturb 1 Age >65 2 Risk Factors 1 or 2 risk factors 1 Troponin Normal limit 0 Total 4 I personally scribed for MARION,SHAINA B PAC ([email or web address]) on 12/23/24 at 15:28. Electronically submitted by Avis Gutierrze ([email or web address]). I personally scribed for MARION,SHAINA B PAC ([email or web address]) on 12/23/24 at 15:30. Electronically submitted by Avis Gutierrez ([email or web address]). I personally scribed for MARION,SHAINA B PAC ([email or web address]) on 12/23/24 at 15:32. Electronically submitted by Avis Gutierrez ([email or web address]). I personally scribed for MARION,SHAINA B PAC ([email or web address]) on 12/23/24 at 15:34. Electronically submitted by Avis Gutierrez ([email or web address]). I personally scribed for MARION,SHAINA B PAC ([email or web address]) on 12/23/24 at 16:26. Electronically submitted by Avis Gutierrez ([email or web address]). MARION,SHAINA B PAC Dec 23, 2024 15:28
[2024-12-23] MEDS: ALBUTEROL SULF 2.5 MG/0.5ML(0.5%) NEB SOLN NEB ONE (15:42)
[2024-12-23] MEDS: IPRATROPIUM BROM 0.5 MG/2.5ML INH SOL NEB ONE (15:42)
[2024-12-23 15:56] LABS: Hemoglobin 8.4 g/dL (13.5-17.5); Nucleated Red Blood Cells % 0.0 %
[2024-12-23 15:58] LABS: Hematocrit 26.0 % (41.0-53.0); Mean Corpuscular Hemoglobin 30.2 pg (28.0-32.0); Mean Corpuscular Volume 93.6 fL (80.0-100.0)
--- NOTE | 2024-12-23 16:10 | DVH ---
CHEST RADIOGRAPH Indication: Shortness of breath Technique: Single frontal view of the chest was obtained Comparison: XY CHEST PORTABLE on DOS: 11/23/24, XY CHEST PORTABLE on DOS: 09/25/24, XY CHEST PORTABLE o n DOS: 07/18/24 FINDINGS: Lines and Tubes: None Lungs: No focal consolidation. Chronic Moderate elevation of the left hemidiaphragm with bibasilar li near densities Pleura: No effusion. No pneumothorax. Cardiomediastinal contours: Ovhj-ih-eqpkbvzk cardiomegaly Bones: No acute osseous abnormality. Gas-filled bowel is noted underneath the left hemidiaphragm whic h may represent a Large bowel. IMPRESSION: Chronic elevation of the left hemidiaphragm with bibasilar atelectasis.
[2024-12-23 16:13] LABS: Alanine Aminotransferase 18 U/L (7-40); Albumin 3.5 g/dL (3.2-4.8); Alkaline Phosphatase 92 U/L (46-116); Anion Gap 8 (5-15); BUN/Creatinine Ratio 24.5 (10.0-20.0); Chloride 107 mmol/L (98-107); Glucose 103 mg/dL (74-106); Lipase 50 U/L (12-53)
[2024-12-23 16:20] LABS: Bilirubin, Total 0.2 mg/dL (0.2-1.0); Blood Urea Nitrogen 63 mg/dL (9-23); Calcium 7.4 mg/dL (8.7-10.4); Carbon Dioxide 17 mmol/L (20-31); Sodium 132 mmol/L (136-145); Total Protein 5.4 g/dL (5.7-8.2)
[2024-12-23 16:22] LABS: Potassium 6.3 mmol/L (3.5-5.1)
[2024-12-23] MEDS ORDERED: CALCIUM GLUC 1,000mg/50ml-NS 50 ML IV SCH (16:30)
[2024-12-23] MEDS: SODIUM CHLORIDE 0.9% 1,000 ML IV ONE (16:31)
[2024-12-23] MEDS: CALCIUM GLUC 4.65meq/50ml D5AE 50 ML IV SCH (16:38)
[2024-12-23] MEDS: SODIUM ZIRCONIUM CYCL 10 GM PAK PO ONE (16:40)
[2024-12-23 17:33] LABS: Urine Protein, UAD Negative (Negative)
[2024-12-23 23:35] VITALS: PULSE 87; RESP 17; O2SAT 92
[2024-12-24] VITALS: BP 101/56; PULSE 78; RESP 19; TEMP 99; O2SAT 93
== END 2024-12-23 23:59 | disposition short-term general hospital (02) ==
LOC: EDBD 15:16 → ER 15:16
DX: D64.9 Anemia, unspecified (principal); I48.91 Unspecified atrial fibrillation; E87.1 Hypo-osmolality and hyponatremia; I50.9 Heart failure, unspecified; N17.9 Acute kidney failure, unspecified; E87.5 Hyperkalemia; J44.9 Chronic obstructive pulmonary disease, unspecified; Z90.49 Acquired absence of other specified parts of digestive tract; Z79.899 Other long term (current) drug therapy
CPT/HCPCS: 36415; 71045; 80053; 81001; 83605; 83690; 83880; 84132; 84484; 85025; 87040; 93005; 94640; 96361; 96365; 96366; 96375; 99291; A4315; J0610; J1100; J7030

== ENCOUNTER 2025-01-20 21:51 | Emergency (ER) | payer OTHER ==
[~2025-01-20] VITALS: Ht 172.7 cm; Wt 91.0 kg
--- NOTE | 2025-01-20 22:14 | ECG ---
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
[2025-01-20 22:27] VITALS: O2SAT 100
[2025-01-20 22:29] LABS: Hematocrit 23.4 % (41.0-53.0); Hemoglobin 7.7 g/dL (13.5-17.5); Mean Corpuscular Hemoglobin 30.0 pg (28.0-32.0); Mean Corpuscular Volume 91.6 fL (80.0-100.0); Nucleated Red Blood Cells % 0.0 %
[2025-01-20 22:33] LABS: Chloride 105 mmol/L (98-107); Sodium 139 mmol/L (136-145)
[2025-01-20 22:34] LABS: Anion Gap 6 (5-15); Carbon Dioxide 28 mmol/L (20-31); Potassium 5.4 mmol/L (3.5-5.1)
[2025-01-20 22:39] LABS: BUN/Creatinine Ratio 20.9 (10.0-20.0); Glucose 100 mg/dL (74-106)
--- NOTE | 2025-01-20 22:40 | DVH ---
CHEST RADIOGRAPH Indication: sob Technique: 1 view Comparison: XY CHEST PORTABLE on DOS: 12/23/24, XY CHEST PORTABLE on DOS: 11/23/24, XY CHEST PORTABLE o n DOS: 09/25/24, XY CHEST PORTABLE on DOS: 07/18/24, XY CHEST PORTABLE on DOS: 06/28/24 FINDINGS: Lines and Tubes: None Lungs/Pleura: More conspicuous patchy airspace disease in the mid to lower lungs. Bilateral perihilar interstitial prominence. No evident pleural abnormality. Left hemidiaphragm remains elevated. Cardiomediastinum: Heart size appears similarly enlarged. Central pulmonary vascular prominence. Other: No acute osseous abnormality. IMPRESSION: 1. More conspicuous basilar airspace disease may represent increased atelectasis, alveolar edema, asp iration or multifocal pneumonia. 2. Underlying findings of heart failure and low lung volumes.
[2025-01-20 22:41] LABS: Blood Urea Nitrogen 51 mg/dL (9-23); Calcium 7.5 mg/dL (8.7-10.4)
--- NOTE | 2025-01-20 22:47 | ECG ---
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
[2025-01-20] MEDS: FUROSEMIDE 40 MG/4 ML VIAL IV ONE (22:56)
[2025-01-20] MEDS: NITROGLYCERIN 2% OINT 1GM PKG TD ONE (22:57)
--- NOTE | 2025-01-20 23:10 | ED.PDOC ---
SOB-HPI HPI Comments 89-year-old male is brought in by ambulance for chief shortness of breath. Significant history for AFib, systolic CHF, CKD stage IIIA, COPD, pulmonary vascular congestion, thyroid disease, and advance orders directive - comfort measures and recent hospice placement. This is a on five day history of symptoms following initial, unprovoked, atraumatic, and gradual onset. Patient claims on having fluids in [his] lungs, again. No reported recent ailments, sick contact, travel, or additional pertinent history. She denies melena having any chest pain, cough, congestion, fever, chills, or further associated symptoms. 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 Associated Signs and Symptoms: None Past Medical History PAST MEDICAL HISTORY: AFIB, CHF (EF of 35-40%, systolic), CKF (Stage IIIA), COPD, Thyroid Past Medical History (Other): PULMONARY VASCULAR CONGESTION AYDEN Surgical History: Appendectomy Family History Family History: Reviewed,noncontributory to illness Social History Smoker: Quit Greater Than 1 Year, Cigarettes Alcohol: Denies ETOH Use Drugs: Denies Drug Use Lives In: Home All Other Systems: Reviewed and Negative (Comprehensive systems review obtained and negative except for what is stated in the HPI.) Physical Exam General Appearance: No Apparent Distress, Normal HEENT: Normal ENT Inspection, Pharynx Normal, TMs Normal Neck: Full Range of Motion, Non-Tender, Normal, Normal Inspection Respiratory: Chest Non-Tender, Lungs Clear, No Accessory Muscle Use, No Respiratory Distress, Normal Breath Sounds Cardiovascular: No Edema, No JVD, No Murmur, No Gallop, Normal Peripheral Pulses, Regular Rate/Rhythm Breast Exam: Deferred Gastrointestinal: No Organomegaly, Non Tender, No Pulsatile Mass, Normal Bowel Sounds, Soft Genitalia: Deferred Pelvic: Deferred Rectal: Deferred Extremities: Leg edema (3+ to bilateral lower extremities), No calf tenderness, Normal capillary refill, Normal range of motion, Non-tender Musculoskeletal : Apperance: Normal Neurologic: Alert, automation engineer II-XII nml as Tested, No Motor Deficits, Normal Affect, Normal Mood, No Sensory Deficits Cerebellar Function: Normal Reflexes: Normal Skin: Dry, Normal Color, Warm Lymphatic: No Adenopathy EKG EKG #1: Pulse Rate (adult): 86 [place]: Normal Cardiac Rhythm: Afib Block: None Hypertrophy: None ST: Normal EKG #2: Pulse Rate (adult): 82 [place]: Normal Cardiac Rhythm: Afib Block: None Hypertrophy: None ST: Normal Was a procedure done? Was a procedure done?: No Differential Dx Differential Diagnosis: Anxiety, Asthma, Bronchitis, CHF, COPD, Dysrhythmia, Hyperventilation, Myocardial infarction, Panic Attack, Pneumonia, Pulmonary Embolism, Respiratory Distress, URI X-Ray, Labs, Meds, VS Vital Signs Date Time Temp Pulse Resp B/P (MAP) Pulse Ox O2 Delivery O2 Flow Rate FiO2 01/20/25 23:10 82 01/20/25 22:57 111/63 01/20/25 22:56 111/63 01/20/25 22:46 82 01/20/25 21:54 86 01/20/25 21:51 98.4 92 26 100/50 98 98.4 Lab Test 01/20/25 23:36 01/20/25 22:44 01/20/25 22:16 Range/Units Troponin I High Sensitivity 32 32 </=54 ng/L POC Glucose 95 70-106 mg/dl White Blood Count 3.8 L 4.4-10.8 10^3/uL Red Blood Count 2.56 L 4.5-5.90 10^6/uL Hemoglobin 7.7 L 13.5-17.5 g/dL Hematocrit 23.4 L 41.0-53.0 % Mean Corpuscular Volume 91.6 80.0-100.0 fL Mean Corpuscular Hemoglobin 30.0 28.0-32.0 pg Mean Corpuscular Hemoglobin Concent 32.7 32.0-36.0 g/dL Red Cell Distribution Width 18.4 H 11.8-14.3 % Platelet Count 159 140-450 10^3/uL Mean Platelet Volume 8.1 6.9-10.8 fL Neutrophils (%) (Auto) 67.6 37.0-80.0 % Lymphocytes (%) (Auto) 18.1 10.0-50.0 % Monocytes (%) (Auto) 8.6 0.0-12.0 % Eosinophils (%) (Auto) 4.9 0.0-7.0 % Basophils (%) (Auto) 0.8 0.0-2.0 % Neutrophils # (Auto) 2.6 1.6-8.6 10 ^3/uL Lymphocytes # (Auto) 0.7 0.4-5.4 10 ^3/uL Monocytes # (Auto) 0.3 0-1.3 10 ^3/uL Eosinophils # (Auto) 0.2 0-0.8 10 ^3/uL Basophils # (Auto) 0 0-0.2 10 ^3/uL Nucleated Red Blood Cells 0.0 % Sodium Level 139 136-145 mmol/L Potassium Level 5.4 H 3.5-5.1 mmol/L Chloride Level 105 98-107 mmol/L Carbon Dioxide Level 28 20-31 mmol/L Anion Gap 6 5-15 Blood Urea Nitrogen 51 H 9-23 mg/dL Creatinine 2.44 H 0.700-1.30 mg/dL Glomerular Filtration Rate Calc 25 >90 mL/min BUN/Creatinine Ratio 20.9 H 10.0-20.0 Serum Glucose 100 74-106 mg/dL Calcium Level 7.5 L 8.7-10.4 mg/dL Current Medications Medications (Trade) Dose Ordered Sig/[place] Route Start Time Stop Time Status Last Admin Furosemide (Lasix Injection) 40 mg ONCE ONCE IV 01/20/25 22:15 01/20/25 22:16 DC 01/20/25 22:56 Nitroglycerin (Nitro-Bid) 1 pkg ONCE ONCE TD 01/20/25 22:15 01/20/25 22:16 DC 01/20/25 22:57 Time of 1ST Reevaluation: 22:30 Reevaluation 1ST: Unchanged Patient Education/Counseling: Diagnosis, Treatment Family Education/Counseling: No Family Present Comments Reviewed and reaffirm advance directive orders with patient Patient has responded well to Lasix and nitroglycerin. He is lying almost flat and resting comfortably. However I any minimal movement causes dyspnea. Patient is a hospice patient however would like to be revoked and still keep DNR. Patient he is requesting to be transferred to [place] for further treatment before he goes back to hospice. I will consult [facility] [place] to fulfill his request for CHF exacerbation. I consulted [facility] [place] Dr. Melchor a EP RP. Dr. Yeung found that the patient would not benefit from additional hospital stay. However patient does not want to go home and would like to go back to a [place] facility for more intensified care. Patient is still wants to be DNR but feels hospitalist it was not providing him enough comfort care. Dr. Bermudez agrees to repeat treated the patient a the case #[id number] Additional Information Previous visits reviewed: JUNE 28, 2024, JULY 01, 2024, JULY 18, 2024, SEPTEMBER 25, 2024, NOVEMBER 23, 2024, AND DECEMBER 23, 2024 ENCOUNTERS FOR ACUTE RESPIRATORY FAILURE, ACUTE ON CHRONIC RESPIRATORY FAILURE, SHORTNESS OF BREATH, COPD EXACERBATION, ACUTE ON CHRONIC COPD EXACERBATION, AND SHORTNESS OF BREATH. The following tests were ordered, and results were reviewed by me: EKG, troponin, CBC, BNP, chest x-ray Additional Information was gathered from interviewing the following independent historians: EMS personnel I reviewed and agreed with the following test results read by other providers: Chest x-ray I discussed treatment and results with medical personnel and: patient SEPSIS Sepsis Screen Date sepsis recognized/suspect: Jan 20, 2025 Time Sepsis recognized/suspect: 2150 Recent Procedure: No On Antibiotic Therapy: No Respiratory Rate >20: No Heart Rate >90: No Temp<36 C (96.8 F) or >38.3 C: No SBP <90 or MAP <65 mmHG: No New Acute Mental Status Change: No Is the patient on CPAP, BIPAP,: No Physician Orders Chest Portable (01/20/25 22:08) Continue Dnr (01/20/25 22:10) Claros Catheters (01/20/25 ) Vital Signs Date Time Temp Pulse Resp B/P (MAP) Pulse Ox O2 Delivery O2 Flow Rate FiO2 01/20/25 23:10 82 01/20/25 22:57 111/63 01/20/25 22:56 111/63 01/20/25 22:46 82 01/20/25 21:54 86 01/20/25 21:51 98.4 92 26 100/50 98 98.4 Laboratory Tests Test 01/20/25 22:16 White Blood Count 3.8 10^3/uL (4.4-10.8) L Medications Medications Dose Ordered Sig/[place] Route Start Time Stop Time Status Last Admin Dose Admin Furosemide 40 mg ONCE ONCE IV 01/20/25 22:15 01/20/25 22:16 DC 01/20/25 22:56 Nitroglycerin 1 pkg ONCE ONCE TD 01/20/25 22:15 01/20/25 22:16 DC 01/20/25 22:57 Departure 1 Departure Time of Disposition: 00:49 Impression: Primary Impression: Acute exacerbation of CHF (congestive heart failure) Qualified Codes: I50.23 - Acute on chronic systolic (congestive) heart failure Additional Impression: Hospice care patient Disposition: 02 SHORT [facility] Admit to: Tele Condition: Stable Discharged With: Self Critical Care Note Critical Care Time?: Yes (55 min-critical care time only) Critical care comment: Due to concerns for patients condition deteriorating, the care required my highest level of attention and readiness to intervene. I assessed the patient, reviewed the medical records, ordered the appropriate tests and treatments, then reassessed for results and responsiveness. I communicated with medical personnel and consultants and formulated a plan of care. Total critical care time excludes any procedures Stability Stability form required: No Heart Score Heart Score: Heart Score Response (Comments) Value History Moderate Suspicious 1 EKG Repolarization Disturb 1 Age >65 2 Risk Factors >3 or Hx ASHD 2 Troponin Normal limit 0 Total 6 I personally scribed for JAREN DOW MD ([email or web address]) on 01/20/25 at 23:10. Electronically submitted by Lang Valdes ([email or web address]). I personally scribed for JAREN DOW MD ([email or web address]) on 01/20/25 at 23:39. Electronically submitted by Lang Valdes ([email or web address]). JAREN DOW MD Jan 20, 2025 23:10
[2025-01-21 01:52] VITALS: BP 107/56; PULSE 88; RESP 20; TEMP 97.7; O2SAT 99
== END 2025-01-21 02:23 | disposition short-term general hospital (02) ==
LOC: EDSEX 21:51 → ER 21:51 → EDUNIT# 21:51 → EDBD 21:51 → ER 01-21 02:23
DX: I50.9 Heart failure, unspecified (principal); N18.31 Chronic kidney disease, stage 3a; J44.9 Chronic obstructive pulmonary disease, unspecified; I48.91 Unspecified atrial fibrillation; Z51.5 Encounter for palliative care; Z90.49 Acquired absence of other specified parts of digestive tract; Z87.891 Personal history of nicotine dependence
CPT/HCPCS: 36415; 71045; 80048; 82947; 84484; 85025; 93005; 96374; 99285; J1938; 82962